=== PATIENT | female | born 1970 | race Caucasian/White ===

== ENCOUNTER → 2017-02-17 | Outpatient (CLI) | payer OTHER ==
--- NOTE | 2017-02-17 09:22 | US ---
EXAMINATION TYPE: US abdomen complete DATE OF EXAM: 02/17/2017 COMPARISON: CT from 2016 CLINICAL HISTORY: R11.2 Nausea and vomiting unspec. EXAM MEASUREMENTS: Liver Length: 9.9 cm Gallbladder Wall: 0.2 cm CBD: 0.3 cm Spleen: 9.0 cm Right Kidney: 9.9 x 3.7 x 4.9 cm Left Kidney: 9.9 x 5.0 x 4.7 cm Pancreas: visualized portions wnl Liver: wnl Gallbladder: No stones seen Evidence for sonographic Martin's sign: Yes CBD: wnl Spleen: wnl Right Kidney: No hydronephrosis or masses seen Left Kidney: No hydronephrosis or masses seen Upper IVC: wnl Abd Aorta: wnl IMPRESSION: 1. Normal abdomen ultrasound 2. There is sonographic Matrin's sign at the time of this examination. This could be correlated with cholecystitis. Ultrasound abnormality ovaries not identified.
== END | disposition home or self-care (01) ==
LOC: RADUSWWP 06:54
PROVIDERS: ATTEND Family Medicine
DX: R11.2 Nausea with vomiting, unspecified (principal)
CPT/HCPCS: 76700

== ENCOUNTER → 2017-02-21 | Outpatient (CLI) | payer OTHER ==
--- NOTE | 2017-02-21 09:04 | NM ---
EXAMINATION TYPE: NM hepatobiliary w EF DATE OF EXAM: 02/21/2017 COMPARISON: Ultrasound abdomen 02/17/2017 HISTORY: Right upper quadrant pain, R10.11 TECHNIQUE: After the intravenous administration of 5.26 mCi Tc 99m Mebrofenin hepatobiliary scintigra phy is performed. Immediate images post injection. FINDINGS: There is satisfactory initial accumulation of tracer by the liver. The gallbladder is visualized wit hin 10 minutes. The small bowel activity is noted on delayed images. At one hour 8 ounces of oral e nsure plus is given to mimic CCK and gallbladder ejection fraction is calculated at 79 %, in the norm al range. Therefore there is no scintigraphic evidence of cystic or common bile duct obstruction to suggest acute cholecystitis or gallbladder dyskinesia. IMPRESSION: Exam is within normal limits.
== END | disposition home or self-care (01) ==
LOC: RADNMMAIN 06:42
PROVIDERS: ATTEND Family Medicine
DX: R10.11 Right upper quadrant pain (principal); Z88.0 Allergy status to penicillin; Z91.013 Allergy to seafood; Z88.8 Allergy status to other drugs, medicaments and biological substances
CPT/HCPCS: 78226; A9537

== ENCOUNTER 2017-11-15 09:24 | Day surgery (SDC) | payer OTHER ==
--- NOTE | 2017-11-15 10:23 | P.GSHP ---
History of Present Illness H&P Date: 11/15/17 CHIEF COMPLAINT: GERD and change in bowel habits HISTORY OF PRESENT ILLNESS: The patient is a 47-year-old female who presents with gastroesophageal reflux disease and change in bowel habits. Upper and lower endoscopy were offered for further evaluation and management. PAST MEDICAL HISTORY: Please see list. PAST SURGICAL HISTORY: Please see list. MEDICATIONS: Please see list. ALLERGIES: Please see list. SOCIAL HISTORY: No illicit drug use FAMILY HISTORY: No reports of Crohn disease or ulcerative colitis. REVIEW OF ORGAN SYSTEMS: CONSTITUTIONAL: No reports of fevers or chills. GI: Denies any blood in stools or constipation. PHYSICAL EXAM: VITAL SIGNS: Stable GENERAL: Well-developed pleasant in no acute distress. HEENT: No scleral icterus. Extraocular movements grossly intact. Moist buccal mucosa. NECK: Supple without lymphadenopathy. CHEST: Unlabored respirations. Equal bilateral excursions. CARDIOVASCULAR: Regular rate and rhythm. Distal 2+ pulses. ABDOMEN: Soft, nondistended. MUSCULOSKELETAL: No clubbing, cyanosis, or edema. ASSESSMENT: 1. Gastroesophageal reflux disease 2. Change in bowel habits PLAN: 1. Recommend proceeding with an upper and lower endoscopy Past Medical History Past Medical History: Cancer, Hyperlipidemia, Hypertension, Myocardial Infarction ([place]), Seizure Disorder, Supraventricular Tachycardia (SVT) Additional Past Medical History / Comment(s): FEW MILD SEIZURES, NONE SINCE 2004. SPONTANEOUS PNEUMOTHORAX. HEART RACING OCC; RECENT VISIT W/ CV . UTERINE FIBROIDS, CERVICAL CANCER. ONGOING MENSES SINCE 10/2014. Last Myocardial Infarction Date:: DECEMBER 2011 History of Any Multi-Drug Resistant Organisms: None Reported Past Surgical History: Ablation, Appendectomy, Heart Catheterization, Hysterectomy, Tubal Ligation Additional Past Surgical History / Comment(s): CARDIAC CATH 12/2011-NO BLOCKAGES , ONLY VERY SMALL VESSEL FEEDING LT SIDE OF HEART. LT LUNG SURG W/ PLEURODESIS , D/T PNEUMOTHORAX. C -SECTION. LEEP, COLPOSCOPY 10/2014. Past Anesthesia/Blood Transfusion Reactions: Postoperative Nausea & Vomiting ( PONV) Additional Past Anesthesia/Blood Transfusion Reaction / Comment(s): NEVER HAD BLOOD Past Psychological History: Anxiety Additional Psychological History / Comment(s): PT LIVES WITH HER MOTHER IN A HOME. PT IS INDEPENDENT. SHE HAS NOT WORKED SINCE NH. SHE DRIVES A CAR. Smoking Status: Former smoker Past Alcohol Use History: Occasional Additional Past Alcohol Use History / Comment(s): STARTED SMOKING TEENAGER, QUIT ON/OFF Past Drug Use History: None Reported, Marijuana Additional Drug Use History / Comment(s): PT SMOKED MARIJUANA IN PAST. - Past Family History Father Family Medical History: Diabetes Mellitus Additional Family Medical History / Comment(s): FATHER IN [place] Mother Family Medical History: Hyperlipidemia, Hypertension, Osteoarthritis (OA), Rheumatoid Arthritis (RA) Additional Family Medical History / Comment(s): MOTHER IS LIVING AND IS 64YRS OLD. Medications and Allergies Home Medications Medication Instructions Recorded Confirmed Type Propranolol HCl [Propranolol HCl 240 mg PO DAILY 03/30/15 06/20/16 History ER] Losartan Potassium 100 mg PO DAILY 06/20/16 06/20/16 History Polyethylene Glycol 3350 [Miralax] 17 gm PO DAILY #20 packet 06/20/16 Rx Allergies Allergy/AdvReac Type Severity Reaction Status Date / Time erythromycin base Allergy Rapid Verified 06/20/16 07:09 Heart Rate heparin Allergy Unknown Verified 06/20/16 07:09 latex Allergy Rash/Hives Verified 06/20/16 07:09 Penicillins Allergy Rash/Hives Verified 06/20/16 07:09 propoxyphene napsylate Allergy Unknown Verified 06/20/16 07:09 [From Darvocet-[facility]] shellfish derived Allergy Swelling Verified 06/20/16 07:09 hydrocodone bitartrate AdvReac Itching Verified 06/20/16 07:09 [From [place]]
[2017-11-15 10:35] VITALS: TEMP 98
[2017-11-15] MEDS ORDERED: LACTATED RINGERS 1,000 ML IV ONE (10:36)
[2017-11-15] MEDS ORDERED: LIDOCAINE 1% 20 ML VIAL (10MG/ML) FOR IV START INTRADERMA ONE (10:37)
[2017-11-15] MEDS ORDERED: PROPOFOL 10 MG/ML 20 ML VIAL IV ONE (10:49)
[2017-11-15] MEDS ORDERED: LIDOCAINE 1% INJ 10MG/ML (20 ML MDV) ONE (10:49)
--- NOTE | 2017-11-15 11:03 | P.PCN ---
Date of Procedure: 11/15/17 Description of Procedure: PREOPERATIVE DIAGNOSIS: Gastroesophageal reflux disease Epigastric abdominal pain POSTOPERATIVE DIAGNOSIS: Gastroesophageal reflux disease Epigastric abdominal pain Diaphragmatic hiatal hernia Chronic gastritis. OPERATION: Esophagogastroduodenoscopy with biopsies along antrum. SURGEON: Georgiana Waddell MD ANESTHESIA: MAC. INDICATIONS: The patient is a 47-year-old female who presents with a history of gastric esophageal reflux disease. She also reported epigastric abdominal pain. Benefits and risks of the procedure were described. Informed consent was obtained. DESCRIPTION: The patient was brought into the endoscopy suite and laid in the left lateral decubitus position. An Olympus gastroscope was passed along the posterior oropharynx down to the distal esophagus where the squamocolumnar junction was encountered at 34 cm from the incisors. The stomach was entered and no bile reflux was found. Additional findings are listed below. Biopsies with cold forceps were obtained of the antrum. The first through third portion of the duodenum was examined and unremarkable. Retroflexion of the scope confirmed Hill grade II lower esophageal valve. The squamocolumnar junction demonstrated LA grade A erosive esophagitis. The stomach was desufflated. The patient tolerated the procedure well. FINDINGS: Squamocolumnar junction 34 cm from the incisors. Diaphragmatic hiatus 36 cm from the incisors Hiatal hernia, 2 cm Hill grade II lower esophageal valve. LA grade A erosive esophagitis. No active duodenitis. Acute gastritis with recent bleed. RECOMMENDATIONS: Further recommendations pending results of pathology report. Upper endoscopy as needed.
--- NOTE | 2017-11-15 11:18 | P.PCN ---
Date of Procedure: 11/15/17 Description of Procedure: PREOPERATIVE DIAGNOSIS: Altered bowel function POSTOPERATIVE DIAGNOSIS: Altered bowel function Scattered diverticulosis Internal hemorrhoids without complication OPERATION: Colonoscopy to the ileocecal valve and appendiceal orifice Colonoscopy with random biopsies SURGEON: Georgiana Waddell MD. ANESTHESIA: MAC. INDICATIONS: The patient is a 47-year-old female who presents for change in bowel habits. Benefits and risks were described and informed consent was obtained. DESCRIPTION OF PROCEDURE: The patient had undergone Gatorade, MiraLAX and Dulcolax prep. She had been brought into the operating room and laid in the left lateral decubitus position. After adequate intravenous sedation, the rectum was examined with 2% lidocaine jelly. No external hemorrhoids were encountered. The rectal tone was within normal limits. No lesions were palpated in the rectal vault. An Olympus colonoscope was advanced until the ileocecal valve and appendiceal orifice were clearly viewed. The prep was good with visualization of the mucosal folds. The scope was removed with visualization of each mucosal fold. scattered diverticulosis was encountered. No colonic polyps were found. No evidence of focal colitis was found. Random biopsies were obtained throughout the colon for history of change in bowel habits. Retroflexion of the scope demonstrated grade 1 internal hemorrhoids without active bleeding or inflammation. The colon was desufflated. The patient had tolerated the procedure well. Withdrawal time was over 6 minutes. FINDINGS: Internal hemorrhoids, grade 1 No external prolapsed hemorrhoids. Scattered diverticulosis. No adenomatous polyps. No focal colitis. RECOMMENDATIONS: Lower endoscopy every as needed. Plan - Discharge Summary New Discharge Prescriptions: No Action Propranolol HCl [Propranolol HCl ER] 240 mg PO DAILY Losartan Potassium 100 mg PO DAILY Polyethylene Glycol 3350 [Miralax] 17 gm PO DAILY #20 packet Discharge Medication List Propranolol HCl [Propranolol HCl ER] 240 mg PO DAILY 03/30/15 [History] Losartan Potassium 100 mg PO DAILY 06/20/16 [History] Polyethylene Glycol 3350 [Miralax] 17 gm PO DAILY #20 packet 06/20/16 [Rx]
[2017-11-15 11:26] VITALS: RESP 16
[2017-11-15] MEDS ORDERED: LACTATED RINGERS 1,000 ML IV SCH (11:35)
[2017-11-15] MEDS ORDERED: LIDOCAINE 1% 20 ML VIAL (10MG/ML) FOR IV START INTRADERMA PRN (11:35)
[2017-11-15 11:57] VITALS: BP 179/99; PULSE 61
== END 2017-11-15 12:36 | disposition home or self-care (01) ==
LOC: ORWHC2ENDO 09:24
PROVIDERS: ATTEND Surgery Plastic and Reconstructive Surgery
DX: K29.40 Chronic atrophic gastritis without bleeding (principal); K44.9 Diaphragmatic hernia without obstruction or gangrene; K57.90 Diverticulosis of intestine, part unspecified, without perforation or abscess without bleeding; K64.0 First degree hemorrhoids; K31.89 Other diseases of stomach and duodenum; I10 Essential (primary) hypertension; Z85.41 Personal history of malignant neoplasm of cervix uteri; I25.2 Old myocardial infarction; Z79.899 Other long term (current) drug therapy; I47.1 Supraventricular tachycardia; Z87.891 Personal history of nicotine dependence; Z88.8 Allergy status to other drugs, medicaments and biological substances; Z88.1 Allergy status to other antibiotic agents; Z91.040 Latex allergy status; Z88.5 Allergy status to narcotic agent; Z88.0 Allergy status to penicillin; Z91.013 Allergy to seafood
CPT/HCPCS: 88305; 45380; 43239; J2001; J2704

== ENCOUNTER → 2017-12-22 | Day surgery (SDC) | payer OTHER ==
[2017-12-21 14:19] VITALS: BMI 23.3
[~2017-12-22] MED LIST: ACETAMINOPHEN IV (For NPO) 1,000 MG in EMPTY BAG 1 BAG IVPB ONE; BUPIVACAINE (PF) 0.5% 30 ML VIAL SQ ONE; DEXAMETHASONE SOD PHOSPHATE 10 MG/ML 1 ML VIAL IV ONE; GLYCOPYRROLATE 0.2 MG/ML 2 ML VIAL ONE; HYDROmorphone (PF) 1 MG/ML ONE; INDOCYANINE GREEN 25 MG VIAL IV ONE; INDOCYANINE GREEN 25 MG VIAL IV STA; KETOROLAC 30 MG/ML 1 ML VIAL ONE; LACTATED RINGERS 1,000 ML IV ONE; LACTATED RINGERS 1,000 ML IV SCH; LIDOCAINE 1% 20 ML VIAL (10MG/ML) FOR IV START INTRADERMA ONE; LIDOCAINE 1% INJ 10MG/ML (20 ML MDV) ONE; MIDAZOLAM 2 MG/2 ML VIAL ONE; MORPHINE SULFATE 2 MG/ML SYRINGE IV PRN; NEOSTIGMINE 1 MG/ML 10 ML VIAL ONE; ONDANSETRON 4 MG/2 ML VIAL IVP ONE; ONDANSETRON 4 MG/2 ML VIAL IVP PRN; PROPOFOL 10 MG/ML 20 ML VIAL IV ONE; Pre Op ABX Message 1 EACH MISC MISCELLANE ONE; ROCURONIUM BROMIDE 10 MG/ML 10 ML VIAL IV ONE; ceFAZolin IN SWFI 2 GM/20 ML SYRINGE IVP ONE; fentaNYL (PF) 50 MCG/ML 2 ML AMP ONE; traMADol 50 MG TAB PO ONE
--- NOTE | 2017-12-22 07:18 | P.GSHP ---
History of Present Illness H&P Date: 12/22/17 CHIEF COMPLAINT: Cholecystitis HISTORY OF PRESENT ILLNESS: The patient is a 47-year-old female who presents with history of epigastric including right upper quadrant abdominal pain. She underwent diagnostic studies for her gallbladder. Separately her clinical picture was consistent with cholecystitis. Now she presents for surgical intervention. PAST MEDICAL HISTORY: Please see list PAST SURGICAL HISTORY: Please see list MEDICATIONS: Please see list ALLERGIES: Denies. SOCIAL HISTORY: No illicit drug use FAMILY HISTORY: Pertinent for gallbladder disease REVIEW OF ORGAN SYSTEMS: Additionally reports: Gastrointestinal: Has fatty food intolerance including greasy food and spicy food intolerance. She reports extremes with diarrhea and constipation. CONSTITUTIONAL: No fevers or chills. HEENT: Denies any trouble with vision, hearing or nosebleeds. No difficulty swallowing. LYMPHATIC: The patient denies any lumps and bumps around the neck. ENDOCRINE: Denies any thyroid disorders. Denies any blood sugar glucose intolerance. RESPIRATORY: Denies pneumonia. Denies any troubles with breathing or dyspnea on exertion. CARDIOVASCULAR: Denies any chest pain, palpitations, or recent heart attacks. Past history of heart attack. GENITOURINARY: Denies any blood in urine or increased urinary frequency. Past cervical cancer MUSCULOSKELETAL: Denies any back pain, stiffness or joint arthritis. NEUROLOGIC: Denies any numbness or tingling along the distal extremities. No seizure disorders or headaches. PSYCHIATRIC: Denies any depression or suicidal ideation. HEMATOLOGIC: Denies any abnormal bleeding or bruising. BREASTS: Denies any breast lumps, pain or nipple discharge. SKIN: No current skin cancer. No rash. PHYSICAL EXAM: VITAL SIGNS: Afebrile vital signs stable Patient is a 47-year-old female. Abdomen: Tender along the right upper quadrant. GENERAL: Well developed and in no acute distress. Pleasant. HEENT: No sclera icterus. Extraocular movements grossly intact. Moist buccal mucosa. Head is atraumatic, normocephalic. Hears conversational speech. No nasal drainage. NECK: Supple without lymphadenopathy. No JV distention. CHEST: Non-labored respirations and equal bilateral excursions. CARDIOVASCULAR: Regular rate and rhythm. Palpable 2+ radial pulses. MUSCULOSKELETAL: No clubbing, cyanosis or edema. NEUROLOGIC: No focal or lateralizing signs. PSYCH: Appropriate affect. Alert and oriented to person, place and time. SKIN: Well perfused. Good skin turgor. STUDIES: HIDA scan reviewed demonstrating ejection fraction of over 70% Ultrasound was reviewed also demonstrating large gallstones. She did have findings of tender right upper quadrant pain. CT of the abdomen and pelvis and imaging was reviewed in detail alongside with the patient demonstrating a lesion along the left kidney. Additionally, the liver was moderately enlarged. Findings are suspicious for fatty liver disease as well. Upper and lower endoscopy findings reviewed. ASSESSMENT: 1. Epigastric and right upper quadrant abdominal pain 2. Chronic cholecystitis 3. Symptomatic gallstones. PLAN: 1. Will need a robotic cholecystectomy possible open. Benefits and risks were described. 2. Heparin for DVT prophylaxis 5000 units. 3. Antibiotic prophylaxis. Past Medical History Past Medical History: Asthma, Cancer, Hyperlipidemia, Hypertension, Myocardial Infarction ([place]), Seizure Disorder, Supraventricular Tachycardia (SVT) Additional Past Medical History / Comment(s): hernia, FEW MILD SEIZURES, NONE SINCE 2004. SPONTANEOUS PNEUMOTHORAX. HEART RACING OCC; hx UTERINE FIBROIDS, hx CERVICAL CANCER. Last Myocardial Infarction Date:: DECEMBER 2011 History of Any Multi-Drug Resistant Organisms: None Reported Past Surgical History: Appendectomy, Cardiac Ablation, Section, Heart Catheterization, Hysterectomy, Tubal Ligation Additional Past Surgical History / Comment(s): LT LUNG SURG W/ PLEURODESIS, D/T PNEUMOTHORAX. . LEEP, COLPOSCOPY Past Anesthesia/Blood Transfusion Reactions: Postoperative Nausea & Vomiting ( PONV) Additional Past Anesthesia/Blood Transfusion Reaction / Comment(s): NEVER HAD BLOOD Smoking Status: Current every day smoker - Past Family History Father Family Medical History: Diabetes Mellitus Additional Family Medical History / Comment(s): FATHER IN [place] Mother Family Medical History: Hyperlipidemia, Hypertension, Osteoarthritis (OA), Rheumatoid Arthritis (RA) Additional Family Medical History / Comment(s): MOTHER IS LIVING AND IS 64YRS OLD. Medications and Allergies Home Medications Medication Instructions Recorded Confirmed Type Propranolol HCl [Propranolol HCl 240 mg PO DAILY 03/30/15 12/21/17 History ER] Losartan Potassium 100 mg PO DAILY 06/20/16 12/21/17 History Albuterol Inhaler [Ventolin Hfa 1 - 2 puff INHALATION RT-Q6H PRN 12/21/17 History Inhaler] clonazePAM [KlonoPIN] 0.5 mg PO DAILY PRN 12/21/17 12/21/17 History Allergies Allergy/AdvReac Type Severity Reaction Status Date / Time erythromycin base Allergy Rapid Verified 12/21/17 14:12 Heart Rate heparin Allergy Unknown Verified 12/21/17 14:12 latex Allergy Rash/Hives Verified 12/21/17 14:12 Penicillins Allergy Rash/Hives Verified 12/21/17 14:12 propoxyphene napsylate Allergy Unknown Verified 12/21/17 14:12 [[facility]] shellfish derived Allergy Swelling Verified 12/21/17 14:12 hydrocodone bitartrate AdvReac Itching Verified 12/21/17 14:12 [From [place]]
[2017-12-22] MEDS: HYDROmorphone 0.5 MG/0.5 ML SYRINGE IVP PRN ×4 (14:34→15:03)
[2017-12-22 14:42] VITALS: TEMP 97
--- NOTE | 2017-12-22 14:59 | P.OP ---
Date of Procedure: 12/22/17 Description of Procedure: SURGEON: GEORGIANA WADDELL MD [employer]: PREOPERATIVE DIAGNOSES: 1. Symptomatic gallstones 2. Chronic cholecystitis 3. History of supraventricular tachycardia 4. Seizure disorder 5. Personal history of cervical cancer 6. Depression 7. Tobacco abuse POSTOPERATIVE DIAGNOSES: 1. Symptomatic gallstones 2. Chronic cholecystitis 3. History of supraventricular tachycardia 4. Seizure disorder 5. Personal history of cervical cancer 6. Depression 7. Tobacco abuse OPERATION: Robotic-assisted da Poonam Xi laparoscopic cholecystectomy, multiport with FIREFLY ESTIMATED BLOOD LOSS: 5 mL. SPECIMENS REMOVED: Gallbladder. COMPLICATIONS: None. OPERATIVE FINDINGS: 1. Chronic cholecystitis INDICATIONS: The patient is a 47-year-old female who presents with cholelcystitis. Surgical intervention with a laparoscopic cholecystectomy was described at length including injury to the biliary tree, bleeding, infection, need for further surgery. Informed consent was obtained. Robotic assisted laparoscopic approach was described. Benefits and risks of the procedure including but not limited to bleeding, infection, injury to the biliary tree was described. Informed consent was obtained. DESCRIPTION OF PROCEDURE: Patient was brought to the operating room, placed in supine position. After general induction, the abdomen had been prepped and draped in standard sterile fashion. The robotic da Poonam XI system was primed. After a timeout protocol was performed, the patient had been prepped and draped in standard sterile fashion. The patient was injected with indocyanine green. A 5 mm 0 degrees laparoscopic trocar entry was performed along the left upper quadrant. The abdomen insufflated to 15 mmHg pressure which she tolerated well. Diagnostic laparoscopy demonstrated no injury to bowel viscera or mesentery. The liver surface was unremarkable. Next, two 8 mm robotic ports were placed along the right upper abdomen. The camera 8-mm port was maintained along the epigastrium. Another 8 mm port was placed along the left upper abdominal wall after exchanging the 5 mm port. Please note that the ports were placed at least 10 to 15 cm away from the target anatomy of the gallbladder. The robot was docked along the left lateral abdomen. The patient was repositioned in reverse Trendelenburg position. Using a grasper for arm 3, a grasper for arm 4, including hook cautery for arm 1 , the robotic system was docked and primed as described. Instruments were interchanged by the programs assistant including hook cautery, Bovie cautery and clip appliers. I had sat at the console. Adhesions were identified along the infundibulum of the gallbladder and addressed using hook cautery. The gallbladder fundus was retracted over the dome of the liver. Initial attention was brought to the infundibulum which was gently retracted in the inferior lateral approach. Using a grasper, the cystic duct including the cystic artery was carefully skeletonized. FIREFLY was used to identify the cystic artery and cystic structures. Large PLASTIC clips were used throughout the entire case. Using a clip oven dumper 2 clips were placed proximally, and 1 clip was placed distally along the cystic duct and then cauterized with the cautery. Again care was taken to avoid any injury to the biliary tree as the common bile duct was clearly visualized during this portion of dissection. Next, the cystic artery was similarly clipped and cauterized. Electro-Bovie cautery was used to remove the gallbladder from the hepatic fossa. Hemostasis was checked and found to be adequate. The robot was undocked. I re-scrubbed into the case. Using a 10 mm Endo Catch bag via the left upper quadrant incision, the specimen was removed from the abdominal cavity. All pneumoperitoneum instruments were evacuated from the abdominal cavity. The incisions were reapproximated using 4-0 Monocryl in an interrupted subcuticular fashion. Fascial defects were less than 8 mm in size. Please note along the trocar sites, local anesthetic was placed as a field block prior to insertion of all instruments. Liquid glue was applied to the skin. At the end of the procedure needle, sponge, and instrument count had been verified correct by the neurosurgical nurse practitioner. The patient was transferred to postanesthesia care unit in stable condition. Intraoperative films were shared with the patient's family who were very pleased with the level of care. Console time 13 minutes Plan - Discharge Summary New Discharge Prescriptions: New Ibuprofen [Motrin] 600 mg PO Q8HR PRN #30 tab PRN Reason: Pain traMADol HCL [Ultram] 50 mg PO Q4HR PRN 3 Days #18 tab PRN Reason: Pain No Action Propranolol HCl [Propranolol HCl ER] 240 mg PO DAILY Losartan Potassium 100 mg PO DAILY Albuterol Inhaler [Ventolin Hfa Inhaler] 1 - 2 puff INHALATION RT-Q6H PRN PRN Reason: Shortness Of Breath clonazePAM [KlonoPIN] 0.5 mg PO DAILY PRN PRN Reason: Anxiety Discharge Medication List Propranolol HCl [Propranolol HCl ER] 240 mg PO DAILY 03/30/15 [History] Losartan Potassium 100 mg PO DAILY 06/20/16 [History] Albuterol Inhaler [Ventolin Hfa Inhaler] 1 - 2 puff INHALATION RT-Q6H PRN [History] clonazePAM [KlonoPIN] 0.5 mg PO DAILY PRN 12/21/17 [History] Ibuprofen [Motrin] 600 mg PO Q8HR PRN #30 tab 12/22/17 [Rx] traMADol HCL [Ultram] 50 mg PO Q4HR PRN 3 Days #18 tab 12/22/17 [Rx] Follow up Appointment(s)/Referral(s): Georgiana Waddell MD [STAFF PHYSICIAN] - 12/26/17 Patient Instructions/Handouts: Low Fat Diet (DC), Laparoscopic Cholecystectomy (DC) Activity/Diet/Wound Care/Special Instructions: No lifting over 4 pounds in 2 weeks. May shower. No bath tub soaks. Avoid fatty greasy foods for the next 5 days. Discharge Disposition: HOME SELF-CARE
[2017-12-22 15:15] LABS: Basophils % (A) 0 %; Eosinophils % (A) 0 %; HCT 40.4 % (34.0-46.0); HGB 13.7 gm/dL (11.4-16.0); Lymphocytes # (A) 0.8 k/uL (1.0-4.8); Lymphocytes % (A) 8 %; MCH 33.5 pg (25.0-35.0); MCHC 33.8 g/dL (31.0-37.0); MCV 99.1 fL (80.0-100.0); Mean Platelet Volume 7.9; Monocytes # (A) 0.3 k/uL (0-1.0); Monocytes % (A) 3 %; Neutrophils # (A) 8.6 k/uL (1.3-7.7); Neutrophils % (A) 88 %; Platelet Count 213 k/uL (150-450); RBC 4.08 m/uL (3.80-5.40); RDW 12.2 % (11.5-15.5); WBC 9.8 k/uL (3.8-10.6)
[2017-12-22 15:17] VITALS: RESP 16
[2017-12-22 15:20] LABS: ALT 127 U/L (9-52); AST 94 U/L (14-36); Alkaline Phosphatase 75 U/L (38-126); Anion Gap 8 mmol/L; Blood Urea Nitrogen 12 mg/dL (7-17); Calcium 9.2 mg/dL (8.4-10.2); Carbon Dioxide 27 mmol/L (22-30); Chloride 104 mmol/L (98-107); Glucose 120 mg/dL (74-99); Potassium 4.5 mmol/L (3.5-5.1); Sodium 139 mmol/L (137-145); Total Bilirubin 0.4 mg/dL (0.2-1.3); Total Protein 6.1 g/dL (6.3-8.2)
[2017-12-22 16:02] VITALS: BP 137/87; PULSE 73
== END | disposition home or self-care (01) ==
LOC: OR 11:24
PROVIDERS: ATTEND Surgery Plastic and Reconstructive Surgery
DX: K80.10 Calculus of gallbladder with chronic cholecystitis without obstruction (principal); K66.0 Peritoneal adhesions (postprocedural) (postinfection); J45.909 Unspecified asthma, uncomplicated; E78.5 Hyperlipidemia, unspecified; I10 Essential (primary) hypertension; F32.9 Major depressive disorder, single episode, unspecified; I25.2 Old myocardial infarction; G40.909 Epilepsy, unspecified, not intractable, without status epilepticus; F17.210 Nicotine dependence, cigarettes, uncomplicated; Z88.1 Allergy status to other antibiotic agents; Z91.040 Latex allergy status; Z88.0 Allergy status to penicillin; Z91.013 Allergy to seafood; Z88.5 Allergy status to narcotic agent; Z88.8 Allergy status to other drugs, medicaments and biological substances; Z79.899 Other long term (current) drug therapy; Z85.41 Personal history of malignant neoplasm of cervix uteri; Z86.79 Personal history of other diseases of the circulatory system; Z90.49 Acquired absence of other specified parts of digestive tract; Z83.3 Family history of diabetes mellitus; Z82.49 Family history of ischemic heart disease and other diseases of the circulatory system; Z83.79 Family history of other diseases of the digestive system
CPT/HCPCS: 47562; 88304; 80053; 85025; J2250; J1100; J2710; J2405; J2001; J3010; J1885; J1170 ×2; J0131; J2704; J0690

== ENCOUNTER → 2018-05-28 | Outpatient (CLI) | payer OTHER ==
--- NOTE | 2018-05-28 10:26 | XR ---
EXAMINATION TYPE: XR wrist complete RT DATE OF EXAM: 05/28/2018 COMPARISON: NONE HISTORY: Palpable lump radial side of the right wrist TECHNIQUE: Four views submitted. FINDINGS: The osseous structures are intact. The joint spaces are preserved and there is no acute fracture or dislocation. There is a soft tissue prominence which likely relates to the palpable nodule. Vague ca lcification along the margin of the distal radius. IMPRESSION: 1. Soft tissue prominence and vague calcification along the margin of the radius. Recommend a MRI.
== END | disposition home or self-care (01) ==
LOC: RADXRMAIN 10:01
PROVIDERS: ATTEND Midwife
DX: M25.831 Other specified joint disorders, right wrist (principal)

== ENCOUNTER → 2018-06-19 | Outpatient (CLI) | payer OTHER ==
--- NOTE | 2018-06-21 23:18 | MR ---
EXAMINATION TYPE: MR wrist RT wo con DATE OF EXAM: 06/19/2018 COMPARISON: Correlation radiograph 05/28/2018 HISTORY: 48-year-old female Right wrist pain, cyst TECHNIQUE: Multiplanar, multisequence images of the right wrist were obtained without IV contrast. FINDINGS: There is a palpable marker along the radial aspect of the wrist. Just underlying this these the first dorsal extensor compartment containing the APL and EPB. Just overlying these tendons at the patient' s area of interest is a 7.5 x 5.0 mm ganglion cyst along the tendon sheath. No abnormal tendon signal or significant tenosynovial fluid is seen. Mild tenosynovial fluid along the distal extensor carpi ulnaris beyond the ulnar styloid process. Oth erwise, the remaining extensor and flexor tendons appear satisfactory. Evaluation of the osseous structures shows moderate degenerative change at the first CMC joint with m arginal spurring and some mild subchondral cystic change. No suspicious bone marrow replacement, bone marrow edema, or evidence for fracture. There is an effusion along the dorsal aspect of the midcarpal compartment and a trace effusion in the distal radioulnar joint. The scapholunate ligament and lunotriquetral ligaments appear intact. Normal course, caliber, and signal intensity of the median nerve. The triangle fibrocartilage appears intact. No osseous erosions are synovial proliferation. IMPRESSION: 1. A 7.5 x 5.0 cm ganglion cyst along the tendon sheath of the first dorsal, extensor compartment. Th is is along the radial aspect of the wrist and corresponds to the area of interest. 2. Moderate degenerative change at the basal joint of the thumb.
== END ==
LOC: RADMRIMAIN 14:38
PROVIDERS: ATTEND Midwife
DX: M67.431 Ganglion, right wrist (principal)

== ENCOUNTER 2019-05-22 12:14 | Inpatient (IN) | payer OTHER ==
[2019-05-22] MEDS ORDERED: NITROGLYCERIN SL TABS 0.4 MG TAB SUBLINGUAL STA ×3 (12:32)
--- NOTE | 2019-05-22 12:38 | ED ---
General Adult HPI - General Chief complaint: Chest Pain Stated complaint: Cardiac issues Time Seen by Provider: 05/22/19 12:15 Source: patient, RN notes reviewed Mode of arrival: ambulatory Limitations: no limitations - History of Present Illness Initial comments: This is a 49-year-old female presents emergency Department with a past medical history significant for smoking high blood pressure and a previous MD. Patient states she comes in today because on Monday she started having severe back pain that radiated down both of her arms she states it was so severe she started to break out in a sweat. Patient states it lasted for 15-20 minutes and then it subsided and it came back a little time later lasted again for 20 minutes and eventually subsided. Patient states since that she's had chest pain in mostly left arm discomfort. She describes it as a pressure chest and in her arm. Patient states she's also been short of breath and extremely tired. Patient states over the last few months she has lost at least 20 pounds unintentionally. Patient states she quit smoking 2 or 3 months ago. Patient denies any recent fever chills or cough. Patient denies any abdominal pain. Patient denies any numbness or weakness per patient denies headache. - Related Data Home Medications Medication Instructions Recorded Confirmed Albuterol Inhaler [Ventolin Hfa 1 - 2 puff INHALATION RT-Q6H PRN 12/21/17 05/22/19 Inhaler] Propranolol HCl 60 mg PO DAILY 06/13/18 05/22/19 Umeclidinium [place] [Incruse 1 puff INHALATION RT-DAILY 05/22/19 05/22/19 Ellipta] Previous Rx's Medication Instructions Recorded traMADol HCL [Ultram] 50 mg PO Q4HR PRN 3 Days #18 tab 12/22/17 Omeprazole 40 mg PO DAILY 30 Days #30 06/14/18 capsule. Allergies Allergy/AdvReac Type Severity Reaction Status Date / Time erythromycin base Allergy Rapid Verified 05/22/19 13:26 Heart Rate heparin Allergy Unknown Verified 05/22/19 13:26 latex Allergy Rash/Hives Verified 05/22/19 13:26 Penicillins Allergy Rash/Hives Verified 05/22/19 13:26 propoxyphene napsylate Allergy Unknown Verified 05/22/19 13:26 [From [facility]] shellfish derived Allergy Swelling Verified 05/22/19 13:26 hydrocodone bitartrate AdvReac Itching Verified 05/22/19 13:26 [From [facility]] Review of Systems ROS Statement: Those systems with pertinent positive or pertinent negative responses have been documented in the HPI. ROS Other: All systems not noted in ROS Statement are negative. Past Medical History Past Medical History: Coronary Artery Disease (CAD), Cancer, Chest Pain / Angina, GERD/Reflux, Hyperlipidemia, Hypertension, Myocardial Infarction (MD), Seizure Disorder, Supraventricular Tachycardia (SVT) Additional Past Medical History / Comment(s): Past sinus tach, L spontaneous pneumothorax with surgery, pt denies asthma-states she has environmental allergies, bronchitis, cervical cancer with surgery, uterine fibroids with surgery, ovarian cysts, umbilical and esophageal hernia per pt, Raynaulds sy ndrome, POTs, no seizure since 2008, gastritis, diverticular disease. Last Myocardial Infarction Date:: DECEMBER 2012 History of Any Multi-Drug Resistant Organisms: None Reported Past Surgical History: Appendectomy, Cardiac Ablation, Section, Cholecystectomy, Heart Catheterization, Hysterectomy, Tubal Ligation Additional Past Surgical History / Comment(s): LT LUNG SURG W/ PLEURODESIS, D/T PNEUMOTHORAX, LEEP, COLPOSCOPY, EGD/COLONOSCOPY. Past Anesthesia/Blood Transfusion Reactions: Postoperative Nausea & Vomiting (PONV) Additional Past Anesthesia/Blood Transfusion Reaction / Comment(s): NEVER HAD BLOOD Past Psychological History: Depression Smoking Status: Current every day smoker Past Alcohol Use History: None Reported Past Drug Use History: None Reported - Past Family History Father Family Medical History: Diabetes Mellitus Additional Family Medical History / Comment(s): FATHER IN [place] Mother Family Medical History: Hyperlipidemia, Hypertension, Osteoarthritis (OA), Rheumatoid Arthritis (RA) Additional Family Medical History / Comment(s): MOTHER IS LIVING AND IS 64YRS OLD. General Exam - General Exam Comments Initial Comments: GENERAL: Patient is well-developed and well-nourished. Patient is nontoxic and well-h ydrated and is in mild distress. ENT: Neck is soft and supple. No significant lymphadenopathy is noted. Oropharynx is clear. Moist mucous membranes. Neck has full range of motion without eliciting any pain. EYES: The sclera were anicteric and conjunctiva were pink and moist. Extraocular mov ements were intact and pupils were equal round and reactive to light. Eyelids were unremarkable. PULMONARY: Unlabored respirations. Good breath sounds bilaterally. No audible rales rhonchi or wheezing was noted. CARDIOVASCULAR: There is a regular rate and rhythm without any murmurs gallops or rubs. ABDOMEN: Soft and nontender with normal bowel sounds. No palpable organomegaly was noted. There is no palpable pulsatile mass. SKIN: Skin is clear with no lesions or rashes and otherwise unremarkable. NEUROLOGIC: Patient is alert and oriented x3. Cranial nerves II through XII are grossly intact. Motor and sensory are also intact. Normal speech, volume and content. Symmetrical smile. MUSCULOSKELETAL: Normal extremities with adequate strength and full range of motion. No lower extremity swelling or edema. No calf tenderness. LYMPHATICS: No significant lymphadenopathy is noted PSYCHIATRIC: Normal psychiatric evaluation. Limitations: no limitations Course Vital Signs 05/22/19 05/22/19 05/22/19 12:16 12:30 13:00 Temperature 98.4 F Pulse Rate 79 78 65 Respiratory 18 16 16 Rate Blood Pressure 201/111 170/107 O2 Sat by Pulse 99 95 97 Oximetry 05/22/19 05/22/19 14:00 14:19 Temperature Pulse Rate Respiratory 20 Rate Blood Pressure 157/97 O2 Sat by Pulse Oximetry Medical Decision Making - Medical Decision Making EKG shows normal sinus rhythm at 66 bpm MT interval 132 QRS is 82 QT interval 372 QTC is 389. Patient's EKG shows no ST segment elevation or depression or T wave abnormalities are noted. CT of the chest and abdomen showed no aortic dissection and no other abnormality was noted. I spoke with Dr. Feldman agreed to admit the patient admitted the patient wrote admitting orders. I consulted cardiology as well as hematology for the elevated white count. - Lab Data Result diagrams: 05/22/19 12:38 05/22/19 12:38 Lab Results 05/22/19 05/22/19 05/22/19 Range/Units 12:38 12:38 12:38 WBC 28.8 H (3.8-10.6) k/uL RBC 5.19 (3.80-5.40) m/uL Hgb 17.0 H (11.4-16.0) gm/dL Hct 50.1 H (34.0-46.0) % MCV 96.5 (80.0-100.0) fL MCH 32.7 (25.0-35.0) pg MCHC 33.9 (31.0-37.0) g/dL RDW 11.9 (11.5-15.5) % Plt Count 354 (150-450) k/uL Neutrophils % 91 % Lymphocytes % 5 % Monocytes % 3 % Eosinophils % 0 % Basophils % 1 % Neutrophils # 26.0 H (1.3-7.7) k/uL Lymphocytes # 1.3 (1.0-4.8) k/uL Monocytes # 1.0 (0-1.0) k/uL Eosinophils # 0.0 (0-0.7) k/uL Basophils # 0.1 (0-0.2) k/uL PT 9.7 (9.0-12.0) sec INR 0.9 (<1.2) APTT 22.7 (22.0-30.0) sec Sodium 139 (137-145) mmol/L Potassium 4.1 (3.5-5.1) mmol/L Chloride 105 (98-107) mmol/L Carbon Dioxide 23 (22-30) mmol/L Anion Gap 11 mmol/L BUN 14 (7-17) mg/dL Creatinine 0.75 (0.52-1.04) mg/dL Est GFR (CKD-EPI)AfAm >90 (>60 ml/min/1.73 sqM) Est GFR (CKD-EPI)NonAf >90 (>60 ml/min/1.73 sqM) Glucose 124 H (74-99) mg/dL Plasma Lactic Acid Mitch (0.7-2.0) mmol/L Calcium 10.6 H (8.4-10.2) mg/dL Magnesium 2.1 (1.6-2.3) mg/dL Total Bilirubin 0.6 (0.2-1.3) mg/dL AST 23 (14-36) U/L ALT 68 H (9-52) U/L Alkaline Phosphatase 86 (38-126) U/L Troponin I (0.000-0.034) ng/mL Total Protein 8.0 (6.3-8.2) g/dL Albumin 5.0 (3.5-5.0) g/dL Urine Color Urine Appearance (Clear) Urine pH (5.0-8.0) Ur Specific [place] (1.001-1.035) Urine Protein (Negative) Urine Glucose (UA) (Negative) Urine Ketones (Negative) Urine Blood (Negative) Urine Nitrite (Negative) Urine Bilirubin (Negative) Urine Urobilinogen (<2.0) mg/dL Ur Leukocyte Esterase (Negative) 05/22/19 05/22/19 05/22/19 Range/Units 12:38 14:48 15:38 WBC (3.8-10.6) k/uL RBC (3.80-5.40) m/uL Hgb (11.4-16.0) gm/dL Hct (34.0-46.0) % MCV (80.0-100.0) fL MCH (25.0-35.0) pg MCHC (31.0-37.0) g/dL RDW (11.5-15.5) % Plt Count (150-450) k/uL Neutrophils % % Lymphocytes % % Monocytes % % Eosinophils % % Basophils % % Neutrophils # (1.3-7.7) k/uL Lymphocytes # (1.0-4.8) k/uL Monocytes # (0-1.0) k/uL Eosinophils # (0-0.7) k/uL Basophils # (0-0.2) k/uL PT (9.0-12.0) sec INR (<1.2) APTT (22.0-30.0) sec Sodium (137-145) mmol/L Potassium (3.5-5.1) mmol/L Chloride (98-107) mmol/L Carbon Dioxide (22-30) mmol/L Anion Gap mmol/L BUN (7-17) mg/dL Creatinine (0.52-1.04) mg/dL Est GFR (CKD-EPI)AfAm (>60 ml/min/1.73 sqM) Est GFR (CKD-EPI)NonAf (>60 ml/min/1.73 sqM) Glucose (74-99) mg/dL Plasma Lactic Acid Mitch 1.6 (0.7-2.0) mmol/L Calcium (8.4-10.2) mg/dL Magnesium (1.6-2.3) mg/dL Total Bilirubin (0.2-1.3) mg/dL AST (14-36) U/L ALT (9-52) U/L Alkaline Phosphatase (38-126) U/L Troponin I <0.012 (0.000-0.034) ng/mL Total Protein (6.3-8.2) g/dL Albumin (3.5-5.0) g/dL Urine Color Light Yellow Urine Appearance Clear (Clear) Urine pH 7.5 (5.0-8.0) Ur Specific [place] >1.050 H (1.001-1.035) Urine Protein Negative (Negative) Urine Glucose (UA) Negative (Negative) Urine Ketones Negative (Negative) Urine Blood Negative (Negative) Urine Nitrite Negative (Negative) Urine Bilirubin Negative (Negative) Urine Urobilinogen <2.0 (<2.0) mg/dL Ur Leukocyte Esterase Negative (Negative) Disposition Clinical Impression: Chest pain, Leukocytosis Disposition: ADMITTED IP TO THIS HOSP Referrals: Richard Feldman MD [Primary Care Provider] - 1-2 days Time of Disposition: 16:05
[2019-05-22 13:03] LABS: ALT 68 U/L (9-52); AST 23 U/L (14-36); African American GFR (CKD) >90 (>60 ml/min/1.73 sqM); Alkaline Phosphatase 86 U/L (38-126); Anion Gap 11 mmol/L; Blood Urea Nitrogen 14 mg/dL (7-17); Calcium 10.6 mg/dL (8.4-10.2); Carbon Dioxide 23 mmol/L (22-30); Chloride 105 mmol/L (98-107); Glucose 124 mg/dL (74-99); Magnesium 2.1 mg/dL (1.6-2.3); Potassium 4.1 mmol/L (3.5-5.1); Sodium 139 mmol/L (137-145); Total Bilirubin 0.6 mg/dL (0.2-1.3)
[2019-05-22] MEDS ORDERED: hydrALAZINE HCL 20 MG/ML 1 ML VIAL IVP STA (13:03)
[2019-05-22 13:10] LABS: Basophils # (A) 0.1 k/uL (0-0.2); Basophils % (A) 1 %; Eosinophils % (A) 0 %; HCT 50.1 % (34.0-46.0); Lymphocytes # (A) 1.3 k/uL (1.0-4.8); Lymphocytes % (A) 5 %; MCH 32.7 pg (25.0-35.0); MCHC 33.9 g/dL (31.0-37.0); MCV 96.5 fL (80.0-100.0); Mean Platelet Volume 6.6; Monocytes % (A) 3 %; Neutrophils % (A) 91 %; Platelet Count 354 k/uL (150-450); RBC 5.19 m/uL (3.80-5.40); RDW 11.9 % (11.5-15.5); WBC 28.8 k/uL (3.8-10.6)
[2019-05-22] MEDS ORDERED: FAMOTIDINE 20 MG/2 ML VIAL IV STA (13:12)
[2019-05-22] MEDS ORDERED: methylPREDNISolone SOD SUCCI 125 MG/2 ML VIAL IV STA (13:12)
[2019-05-22] MEDS ORDERED: diphenhydrAMINE 50 MG/ML 1 ML VIAL IVP STA (13:12)
[2019-05-22 13:21] LABS: INR 0.9 (<1.2); Partial Thromboplastin Time 22.7 sec (22.0-30.0); Prothrombin Time 9.7 sec (9.0-12.0)
--- NOTE | 2019-05-22 14:52 | CT ---
EXAMINATION TYPE: CT angio thor/abd pel aorta DATE OF EXAM: 05/22/2019 COMPARISON: 06/26/2014 HISTORY: chest and back pain CT DLP: 571 mGycm CONTRAST: CTA thoracic and abdominal aorta with 3-D reconstruction is performed and without and with IV Contras t, patient injected with 100 mL of Isovue 370. Contrast CTA of the thoracic and abdominal aorta was performed from the lung apex through the bifurca tion. 3-D reconstruction imaging obtained at a separate workstation. CT Chest: THORACIC AORTA: There is no evidence for aneurysm. No dissection or mediastinal hematoma. Mild ath eromatous changes are seen. LUNGS: Mild upper lobe emphysematous changes redemonstrated. The lungs are clear and free of infiltra te or atelectasis. No pulmonary nodule or mass is detected. No pleural effusion or CT evidence of i nterstitial lung disease. MEDIASTINUM: The heart is not enlarged. No evidence for mediastinal mass or adenopathy. HILAR STRUCTURES: No evidence for mass. No hilar adenopathy is appreciated. OTHER: No significant abnormality. CONTRAST CT ABDOMEN AND PELVIS ABDOMINAL AORTA: No evidence for abdominal aortic aneurysm. No dissection. Iliac vessels are symmet radha and patent. LIVER/GB- No significant abnormality is seen. PANCREAS- No significant abnormality is seen. SPLEEN- No significant abnormality is seen. ADRENALS- No significant abnormality is seen. KIDNEYS/BLADDER-left renal cyst 2.1 cm. Left renal parenchymal thinning upper pole BOWEL- No Significant abnormality GENITAL ORGANS: No gross abnormality seen. LYMPH NODES- No greater than 1cm abdominal or pelvic lymph nodes areappreciated. OSSEOUS STRUCTURES- No significant abnormality is seen. OTHER- No significant abnormality is seen. IMPRESSION- 1. No evidence for thoracoabdominal aortic aneurysm or dissection. 2. No acute process identified at this time.
[2019-05-22 15:45] LABS: Appearance,Urine Clear (Clear); Bilirubin,Urine Negative (Negative); Blood,Urine Negative (Negative); Color,Urine Light Yellow; Glucose,Urine (UA) Negative (Negative); Ketones,Urine Negative (Negative); Leukocyte Esterase,Urine Negative (Negative); Nitrite,Urine Negative (Negative); PH, Urine 7.5 (5.0-8.0); Protein,Urine Negative (Negative); Urobilinogen,Urine <2.0 mg/dL (<2.0)
[2019-05-22 15:50] LABS: Specific Gravity,Urine >1.050 (1.001-1.035)
[2019-05-22] MEDS ORDERED: NITROGLYCERIN SL TABS 0.4 MG TAB SUBLINGUAL PRN (16:07)
[2019-05-22 17:03] LABS: T4, Free (Free Thyroxine) 1.08 ng/dL (0.78-2.19)
[2019-05-22] MEDS: traMADol 50 MG TAB PO PRN (17:56)
[2019-05-22] MEDS: NITROGLYCERIN OINT 1 INCH/GM PACKET TOPICAL SCH ×2 (18:33→23:22)
[2019-05-22] MEDS ORDERED: IPRATROPIUM-ALBUTEROL 3 ML NEB INHALATION PRN (20:20)
[2019-05-23] MEDS: NITROGLYCERIN OINT 1 INCH/GM PACKET TOPICAL SCH (03:50)
[2019-05-23 04:18] LABS: Cholesterol 267 mg/dL (<200); HDL Cholesterol 104 mg/dL (40-60); LDL Cholesterol,Calculated 121 mg/dL (0-99); Triglycerides 208 mg/dL (<150)
[2019-05-23] MEDS: traMADol 50 MG TAB PO PRN (04:20)
[2019-05-23] MEDS: IPRATROPIUM-ALBUTEROL 3 ML NEB INHALATION SCH ×5 (04:28→19:47)
--- NOTE | 2019-05-23 06:53 | P.CRDCN ---
History of Present Illness Consult date: 05/23/19 Chief complaint: Chest pain History of present illness: This is a pleasant 49-year-old female patient who sees Dr. Jeronimo in the office on regular basis with a past medical history significant for cardiac arrhythmia, unknown type, but the patient stated that she underwent "ablation" several years ago, presented to the hospital complaining of chest discomfort. The patient also is known to have hypertension. She stated that she was in her usual state of health until yesterday when she was at work and started experiencing suddenly discomfort in the upper back and between the shoulders with associated discomfort to the middle of the chest. She described her discomfort as a burning sensation which was also radiates to her arm. It was associated with shortness of breath as well as a sweating. The pressure lately has been out of control. The patient is on beta jackie which was reduced recently I her primary care physician because her pressure was low according to her. When the patient presented to the emergency room she was quite hypertensive with a systolic pressure in the 190s. She underwent a computed tomography scan of the chest which showed no acute abnormalities including dissection or aneurysmal formation. The EKG showed sinus rhythm without any significant ST or T-wave abnormalities. The blood work came in to be unremarkable and she was ruled out for acute coronary event. No documented history of coronary artery disease or congestive heart failure in the past. I am going to add lisinopril to the current medical regimen. The blood pressure here in the hospital continues to be elevated but not as high as when she presented to the hospital. Beside that I'm going to obtain an echocardiogram was Doppler. Please note that the patient underwent a stress test in May 2018 and that came in to be unremarkable. Past Medical History Past Medical History: Coronary Artery Disease (CAD), Cancer, Chest Pain / Angina, GERD/Reflux, Hyperlipidemia, Hypertension, Myocardial Infarction ([place]), Seizure Disorder, Supraventricular Tachycardia (SVT) Additional Past Medical History / Comment(s): Past sinus tach, L spontaneous pneumothorax with surgery,emphysema stage 3, bronchitis, cervical cancer with surgery, uterine fibroids with surgery, ovarian cysts, umbilical and esophageal hernia per pt, Raynaulds syndrome, POTs, no seizure since 2008, gastritis, diverticular disease. Last Myocardial Infarction Date:: DECEMBER 2012 History of Any Multi-Drug Resistant Organisms: None Reported Past Surgical History: Appendectomy, Cardiac Ablation, Section, Cholecystectomy, Heart Catheterization, Hysterectomy, Tubal Ligation Additional Past Surgical History / Comment(s): LT LUNG SURG W/ PLEURODESIS, D/T PNEUMOTHORAX, LEEP, COLPOSCOPY, EGD/COLONOSCOPY. Past Anesthesia/Blood Transfusion Reactions: Postoperative Nausea & Vomiting (PONV) Additional Past Anesthesia/Blood Transfusion Reaction / Comment(s): NEVER HAD BLOOD Past Psychological History: Depression Additional Psychological History / Comment(s): Pt lives with her mother and stays at her boyfriends at times. She drives. She is currently unemployed. Smoking Status: Former smoker Past Alcohol Use History: None Reported Additional Past Alcohol Use History / Comment(s): Pt started smoking as a teen and has quit several times over the years and is currently trying to quit again. She uses to smoke over a ppd but lately has cut down to 5-8 cigarettes a day. Past Drug Use History: None Reported Additional Drug Use History / Comment(s): Pt denies any prior/current drug use. - Past Family History Father Family Medical History: Diabetes Mellitus Additional Family Medical History / Comment(s): FATHER IN [place] Mother Family Medical History: Hyperlipidemia, Hypertension, Osteoarthritis (OA), Rheumatoid Arthritis (RA) Additional Family Medical History / Comment(s): MOTHER IS LIVING AND IS 64YRS OLD. Medications and Allergies Home Medications Medication Instructions Recorded Confirmed Type Albuterol Inhaler [Ventolin Hfa 1 - 2 puff INHALATION RT-Q6H PRN 12/21/17 05/22/19 History Inhaler] traMADol HCL [Ultram] 50 mg PO Q4HR PRN 3 Days #18 tab 12/22/17 05/22/19 Rx Omeprazole 40 mg PO DAILY 30 Days #30 06/14/18 05/22/19 Rx capsule. Propranolol HCl [Propranolol HCl 60 mg PO DAILY 05/22/19 05/22/19 History ER] Umeclidinium [place] [Incruse 1 puff INHALATION RT-DAILY 05/22/19 05/22/19 History Ellipta] Allergies Allergy/AdvReac Type Severity Reaction Status Date / Time erythromycin base Allergy Rapid Verified 05/22/19 13:26 Heart Rate heparin Allergy Unknown Verified 05/22/19 13:26 latex Allergy Rash/Hives Verified 05/22/19 13:26 Penicillins Allergy Rash/Hives Verified 05/22/19 13:26 propoxyphene napsylate Allergy Unknown Verified 05/22/19 13:26 [facility] derived Allergy Swelling Verified 05/22/19 13:26 hydrocodone bitartrate AdvReac Itching Verified 05/22/19 13:26 [From [facility]] Physical Exam Vitals: Vital Signs Temp Pulse Pulse Pulse Pulse Resp BP 05/23/19 04:35 84 05/23/19 04:30 78 05/23/19 04:00 97.9 F 69 18 05/23/19 01:20 74 16 05/23/19 00:00 97.8 F 64 18 05/22/19 23:17 16 05/22/19 20:00 18 05/22/19 19:44 97.9 F 73 18 05/22/19 17:20 98.0 F 69 18 05/22/19 17:00 20 05/22/19 16:58 20 132/86 05/22/19 16:32 20 05/22/19 14:19 20 05/22/19 14:00 157/97 05/22/19 13:00 65 16 170/107 05/22/19 12:30 78 16 05/22/19 12:16 98.4 F 79 18 201/111 BP Pulse Ox 05/23/19 04:35 05/23/19 04:30 05/23/19 04:00 159/97 97 05/23/19 01:20 180/84 05/23/19 00:00 179/104 96 05/22/19 23:17 05/22/19 20:00 05/22/19 19:44 154/90 97 05/22/19 17:20 174/82 99 05/22/19 17:00 05/22/19 16:58 96 05/22/19 16:32 05/22/19 14:19 05/22/19 14:00 05/22/19 13:00 97 05/22/19 12:30 95 05/22/19 12:16 99 Intake and Output 05/22/19 05/22/19 05/23/19 14:59 22:59 06:59 Other: # Voids 1 Weight 52.163 kg - Constitutional General appearance: no acute distress - Respiratory Respiratory: bilateral: CTA - Cardiovascular Rhythm: regular Heart sounds: normal: S1, S2 Results 05/22/19 12:38 05/22/19 12:38 Cardiac Enzymes 05/22/19 05/22/19 05/22/19 Range/Units 12:38 12:38 18:04 AST 23 (14-36) U/L Troponin I <0.012 <0.012 (0.000-0.034) ng/mL 05/23/19 Range/Units 00:32 AST (14-36) U/L Troponin I <0.012 (0.000-0.034) ng/mL Coagulation 05/22/19 Range/Units 12:38 PT 9.7 (9.0-12.0) sec APTT 22.7 (22.0-30.0) sec Lipids 05/22/19 Range/Units 12:38 Triglycerides 208 H (<150) mg/dL Cholesterol 267 H (<200) mg/dL HDL Cholesterol 104 H (40-60) mg/dL CBC 05/22/19 Range/Units 12:38 WBC 28.8 H (3.8-10.6) k/uL RBC 5.19 (3.80-5.40) m/uL Hgb 17.0 H (11.4-16.0) gm/dL Hct 50.1 H (34.0-46.0) % Plt Count 354 (150-450) k/uL Comprehensive Metabolic Panel 05/22/19 Range/Units 12:38 Sodium 139 (137-145) mmol/L Potassium 4.1 (3.5-5.1) mmol/L Chloride 105 (98-107) mmol/L Carbon Dioxide 23 (22-30) mmol/L BUN 14 (7-17) mg/dL Creatinine 0.75 (0.52-1.04) mg/dL Glucose 124 H (74-99) mg/dL Calcium 10.6 H (8.4-10.2) mg/dL AST 23 (14-36) U/L ALT 68 H (9-52) U/L Alkaline Phosphatase 86 (38-126) U/L Total Protein 8.0 (6.3-8.2) g/dL Albumin 5.0 (3.5-5.0) g/dL Current Medications Generic Name Dose Route Start Last Admin Trade Name Freq PRN Reason Stop Dose Admin Albuterol/Ipratropium 3 ml 05/23/19 08:00 Duoneb 0.5 Mg-3 Mg/3 Ml Soln INHALATION RT-QID ELISA Albuterol/Ipratropium 3 ml 05/22/19 20:20 05/23/19 04:31 Duoneb 0.5 Mg-3 Mg/3 Ml Soln INHALATION 05/29/19 20:21 3 ml RT-Q4H PRN Administration Shortness Of Breath Aspirin 325 mg 05/23/19 09:00 Aspirin PO DAILY [facility] Lisinopril 5 mg 05/23/19 09:00 Zestril PO DAILY [facility] Nitroglycerin 0.4 mg 05/22/19 16:07 Nitrostat SUBLINGUAL Q5M PRN Chest Pain Nitroglycerin 1 inch 05/22/19 18:00 05/23/19 03:50 Nitro-Bid Oint TOPICAL Not Given Q6HR [facility] Pantoprazole Sodium 40 mg 05/23/19 07:30 Protonix PO AC-BRKFST [facility] Propranolol HCl 60 mg 05/23/19 09:00 Inderal La PO DAILY [facility] Tramadol HCl 50 mg 05/22/19 16:55 05/23/19 04:20 Ultram PO 50 mg Q4HR PRN Administration Pain Intake and Output 05/22/19 05/22/19 05/23/19 14:59 22:59 06:59 Other: # Voids 1 Weight 52.163 kg Patient Weight 05/23/19 06:59 Weight 52.163 kg 05/22/19 12:38 05/22/19 12:38 Assessment and Plan Assessment: Assessment #1 hypertensive emergency Plan #1 acute coronary syndrome was ruled out #2 aortic dissection was ruled out as well #3 I would recommend adding lisinopril to the current medical regimen #4 obtain an echocardiogram was Doppler #5 if the pressure comes down later on today, and the patient is chest pain- free, she might be able to be discharged home and follow-up with Dr. Jeronimo Thank you for allowing us participate in her care
[2019-05-23] MEDS: ASPIRIN 325 MG TAB PO SCH (08:26)
[2019-05-23] MEDS: PROPRANOLOL LA 60 MG CAP.SA.24H PO SCH (08:26)
[2019-05-23] MEDS: PANTOPRAZOLE 40 MG TABLET PO SCH (08:26)
[2019-05-23] MEDS ORDERED: LISINOPRIL 10 MG TAB PO SCH (09:00)
--- NOTE | 2019-05-23 10:34 | ECHOF ---
Referral Reason:cp MEASUREMENTS -------- HEIGHT: 165.1 cm WEIGHT: 52.2 kg BP: 159/97 RVIDd: 2.9 cm (< 3.3) IVSd: 0.7 cm (0.6 - 1.1) LVIDd: 4.2 cm (3.9 - 5.3) LVPWd: 1.1 cm (0.6 - 1.1) IVSs: 1.0 cm LVIDs: 3.0 cm LVPWs: 1.1 cm LA Diam: 2.7 cm (2.7 - 3.8) LAESV Index (A-L): 22.81 ml/m Ao Diam: 2.2 cm (2.0 - 3.7) AV Cusp: 1.2 cm (1.5 - 2.6) LA Diam: 3.4 cm (2.7 - 3.8) MV EXCURSION: 18.221 mm (> 18.000) MV EF SLOPE: 134 mm/s (70 - 150) EPSS: 0.6 cm MV E Christopher: 0.78 m/s MV DecT: 135 ms MV A Christopher: 0.52 m/s MV E/A Ratio: 1.50 RAP: 5.00 mmHg RVSP: 14.63 mmHg FINDINGS -------- Sinus rhythm. This was a technically good study. LV size, wall thickness and systolic function are normal, with an EF greater than 55%. The left reed tricular size is normal. The diastolic filling pattern is normal for the age of the patient {E/E'}. The right ventricle is normal in size. The left atrial size is normal. Normal LA size by volume 22+/-6 ml/m2. The right atrial size is normal. The aortic valve is trileaflet, and appears structurally normal. No aortic stenosis or regurgitation. Mild mitral annular calcification present. Mild mitral regurgitation is present. Mild tricuspid regurgitation present. Right ventricular systolic pressure is normal at < 35 mmHg. There is no evidence of pulmonary hypertension. There is no pulmonic regurgitation present. The aortic root size is normal. Echo free space represents a pericardial fat pad. CONCLUSIONS -------- 1. Sinus rhythm. 2. This was a technically good study. 3. LV size, wall thickness and systolic function are normal, with an EF greater than 55%. 4. The left ventricular size is normal. 5. The diastolic filling pattern is normal for the age of the patient {E/E'} 6. The right ventricle is normal in size. 7. The left atrial size is normal. 8. Normal LA size by volume 22+/-6 ml/m2. 9. The right atrial size is normal. 10. The aortic valve is trileaflet, and appears structurally normal. No aortic stenosis or regurgitat ion. 11. Mild mitral annular calcification present. 12. Mild mitral regurgitation is present. 13. Mild tricuspid regurgitation present. 14. Right ventricular systolic pressure is normal at < 35 mmHg. 15. There is no evidence of pulmonary hypertension. 16. There is no pulmonic regurgitation present. 17. The aortic root size is normal. 18. Echo free space represents a pericardial fat pad. HAND TRIMMER: Ngozi Mckay RDCS
[2019-05-23 11:50] VITALS: BMI 19.1
[2019-05-23] MEDS ORDERED: LISINOPRIL 5 MG TAB PO ONE (11:50)
[2019-05-23] MEDS: Acetaminophen-Codeine 300-30mg TAB PO PRN ×2 (12:00→17:58)
--- NOTE | 2019-05-23 12:15 | P.HPIM ---
History of Present Illness 49-year-old female presented to the emergency room with complaints of fatigue for 2 months sweats chills excruciating midthoracic pain. Noted leukocytosis with a white count of 28. Patient states she's been on prednisone for of her emphysema which is stage III. Patient complaining of headache. Patient hypertensive crisis. Chest pain medically cleared by cardiology with troponins negative 3 Review of Systems Constitutional: Reports fatigue Respiratory: Reports dyspnea Integumentary: Reports pruritus, Reports rash Neurological: Reports headaches Past Medical History Past Medical History: Coronary Artery Disease (CAD), Cancer, Chest Pain / Angina, GERD/Reflux, Hyperlipidemia, Hypertension, Myocardial Infarction ([place]), Seizure Disorder, Supraventricular Tachycardia (SVT) Additional Past Medical History / Comment(s): Past sinus tach, L spontaneous pneumothorax with surgery,emphysema stage 3, bronchitis, cervical cancer with surgery, uterine fibroids with surgery, ovarian cysts, umbilical and esophageal hernia per pt, Raynaulds syndrome, POTs, no seizure since 2008, gastritis, diverticular disease. Last Myocardial Infarction Date:: DECEMBER 2012 History of Any Multi-Drug Resistant Organisms: None Reported Past Surgical History: Appendectomy, Cardiac Ablation, Section, Cholecystectomy, Heart Catheterization, Hysterectomy, Tubal Ligation Additional Past Surgical History / Comment(s): LT LUNG SURG W/ PLEURODESIS, D/T PNEUMOTHORAX, LEEP, COLPOSCOPY, EGD/COLONOSCOPY. Past Anesthesia/Blood Transfusion Reactions: Postoperative Nausea & Vomiting (PONV) Additional Past Anesthesia/Blood Transfusion Reaction / Comment(s): NEVER HAD BLOOD Past Psychological History: Depression Additional Psychological History / Comment(s): Pt lives with her mother and stays at her boyfriends at times. She drives. She is currently unemployed. Smoking Status: Former smoker Past Alcohol Use History: None Reported Additional Past Alcohol Use History / Comment(s): Pt started smoking as a teen and has quit several times over the years and is currently trying to quit again. She uses to smoke over a ppd but lately has cut down to 5-8 cigarettes a day. Past Drug Use History: None Reported Additional Drug Use History / Comment(s): Pt denies any prior/current drug use. - Past Family History Father Family Medical History: Diabetes Mellitus Additional Family Medical History / Comment(s): FATHER IN [place] Mother Family Medical History: Hyperlipidemia, Hypertension, Osteoarthritis (OA), Rheumatoid Arthritis (RA) Additional Family Medical History / Comment(s): MOTHER IS LIVING AND IS 64YRS OLD. Medications and Allergies Home Medications Medication Instructions Recorded Confirmed Type Albuterol Inhaler [Ventolin Hfa 1 - 2 puff INHALATION RT-Q6H PRN 12/21/17 05/22/19 History Inhaler] traMADol HCL [Ultram] 50 mg PO Q4HR PRN 3 Days #18 tab 12/22/17 05/22/19 Rx Omeprazole 40 mg PO DAILY 30 Days #30 06/14/18 05/22/19 Rx capsule. Propranolol HCl [Propranolol HCl 60 mg PO DAILY 05/22/19 05/22/19 History ER] Umeclidinium [place] [Incruse 1 puff INHALATION RT-DAILY 05/22/19 05/22/19 History Ellipta] Allergies Allergy/AdvReac Type Severity Reaction Status Date / Time erythromycin base Allergy Rapid Verified 05/22/19 13:26 Heart Rate heparin Allergy Unknown Verified 05/22/19 13:26 latex Allergy Rash/Hives Verified 05/22/19 13:26 Penicillins Allergy Rash/Hives Verified 05/22/19 13:26 propoxyphene napsylate Allergy Unknown Verified 05/22/19 13:26 [From [facility]] shellfish derived Allergy Swelling Verified 05/22/19 13:26 hydrocodone bitartrate AdvReac Itching Verified 05/22/19 13:26 [From [place]] Physical Exam Vitals: Vital Signs Temp Pulse Pulse Pulse Pulse Resp BP 05/23/19 11:27 98.0 F 62 18 05/23/19 07:00 97.7 F 60 18 05/23/19 04:35 84 05/23/19 04:30 78 05/23/19 04:00 97.9 F 69 18 05/23/19 01:20 74 16 05/23/19 00:00 97.8 F 64 18 05/22/19 23:17 16 05/22/19 20:00 18 05/22/19 19:44 97.9 F 73 18 05/22/19 17:20 98.0 F 69 18 05/22/19 17:00 20 05/22/19 16:58 20 132/86 05/22/19 16:32 20 05/22/19 14:19 20 05/22/19 14:00 157/97 05/22/19 13:00 65 16 170/107 05/22/19 12:30 78 16 05/22/19 12:16 98.4 F 79 18 201/111 BP BP Pulse Ox 05/23/19 11:27 171/100 98 05/23/19 07:00 173/98 96 05/23/19 04:35 05/23/19 04:30 05/23/19 04:00 159/97 97 05/23/19 01:20 180/84 05/23/19 00:00 179/104 96 05/22/19 23:17 05/22/19 20:00 05/22/19 19:44 154/90 97 05/22/19 17:20 174/82 99 05/22/19 17:00 05/22/19 16:58 96 05/22/19 16:32 05/22/19 14:19 05/22/19 14:00 05/22/19 13:00 97 05/22/19 12:30 95 05/22/19 12:16 99 Intake and Output 05/22/19 05/23/19 05/23/19 22:59 06:59 14:59 Other: # Voids 1 Weight 52.163 kg - Constitutional General appearance: mild distress - EENT Eyes: PERRLA Ears: bilateral: normal - Neck Neck: normal ROM - Respiratory Respiratory: bilateral: diminished - Cardiovascular Rhythm: regular - Gastrointestinal General gastrointestinal: normal bowel sounds, soft - Integumentary Integumentary: rash - Neurologic Neurologic: CNII-XII intact - Musculoskeletal Musculoskeletal: gait normal - Psychiatric Psychiatric: A&O x's 3, appropriate affect, intact judgment & insight Results CBC & Chem 7: 05/22/19 12:38 05/22/19 12:38 Labs: Abnormal Lab Results - Last 24 Hours (Table) 05/22/19 05/22/19 05/22/19 Range/Units 12:38 12:38 12:38 WBC 28.8 H (3.8-10.6) k/uL Hgb 17.0 H (11.4-16.0) gm/dL Hct 50.1 H (34.0-46.0) % Neutrophils # 26.0 H (1.3-7.7) k/uL Glucose 124 H (74-99) mg/dL Calcium 10.6 H (8.4-10.2) mg/dL ALT 68 H (9-52) U/L Triglycerides 208 H (<150) mg/dL Cholesterol 267 H (<200) mg/dL LDL Cholesterol, Calc 121 H (0-99) mg/dL HDL Cholesterol 104 H (40-60) mg/dL Ur Specific [place] (1.001-1.035) 05/22/19 Range/Units 15:38 WBC (3.8-10.6) k/uL Hgb (11.4-16.0) gm/dL Hct (34.0-46.0) % Neutrophils # (1.3-7.7) k/uL Glucose (74-99) mg/dL Calcium (8.4-10.2) mg/dL ALT (9-52) U/L Triglycerides (<150) mg/dL Cholesterol (<200) mg/dL LDL Cholesterol, Calc (0-99) mg/dL HDL Cholesterol (40-60) mg/dL Ur Specific [place] >1.050 H (1.001-1.035) CT scan - abdomen: report reviewed CT scan - chest: report reviewed Thrombosis Risk Factor Assmnt - Choose All That Apply Any of the Below Risk Factors Present?: Yes Each Factor Represents 1 point: Age 41-60 years Other Risk Factors: No Thrombosis Risk Factor Assessment Total Risk Factor Score: 1 Thrombosis Risk Factor Assessment Level: Low Risk Assessment and Plan Plan: Assessment Chest pain noncardiac troponins negative 3 Hypertensive emergency Headaches Leukocytosis History of coronary disease with VA History of cervical cancer GERD Hypertension Hyperlipidemia Seizure disorder remote Emphysema stage III History of SVT Plan Continue consultation with cardiology Consultation with hematology regarding leukocytosis
--- NOTE | 2019-05-23 12:43 | CT ---
EXAMINATION TYPE: CT brain wo con DATE OF EXAM: 05/23/2019 COMPARISON: CT mastoids 04/27/2016. HISTORY: Headache new onset for [address] DLP: 1080.4 mGycm. Automated Exposure Control for Dose Reduction was Utilized. TECHNIQUE: CT scan of the head is performed without contrast. FINDINGS: There is no acute intracranial hemorrhage, mass effect, or midline shift identified. The ventricles and sulci are within normal limits in size. [place] white matter differentiation is maintai batsheva. The globes are intact and the visualized sinuses are clear. IMPRESSION: No acute intracranial hemorrhage or midline shift is seen.
[2019-05-23 12:45] LABS: Basophils # (A) 0.1 k/uL (0-0.2); Basophils % (A) 0 %; Eosinophils % (A) 0 %; HCT 47.2 % (34.0-46.0); HGB 15.3 gm/dL (11.4-16.0); Lymphocytes # (A) 1.3 k/uL (1.0-4.8); Lymphocytes % (A) 4 %; MCH 31.3 pg (25.0-35.0); MCHC 32.4 g/dL (31.0-37.0); MCV 96.4 fL (80.0-100.0); Mean Platelet Volume 6.9; Monocytes # (A) 1.4 k/uL (0-1.0); Monocytes % (A) 4 %; Neutrophils # (A) 28.3 k/uL (1.3-7.7); Neutrophils % (A) 90 %; Platelet Count 348 k/uL (150-450); RBC 4.89 m/uL (3.80-5.40); RDW 11.8 % (11.5-15.5)
[2019-05-23 13:10] LABS: WBC 31.5 k/uL (3.8-10.6)
[2019-05-23 16:53] LABS: Ferritin 136.7 ng/mL (10.0-291.0)
[2019-05-23 17:28] LABS: Rheumatoid Factor, Qnt <4 IU/mL (0-15)
[2019-05-23] MEDS: amLODIPine 10 MG TAB PO SCH (18:01)
--- NOTE | 2019-05-23 18:17 | P.CONS ---
History of Present Illness - Reason for Consult Consult date: 05/23/19 leukocytosis Requesting physician: Gokul Arana - Chief Complaint chest pain - History of Present Illness Miss. Choi is a very pleasant female who came to the hospital with c/o chest pain. She has a history of myocardial infarction and cardiovascular disease as well as hyperlipidemia. She had cardiac workup with no acute cardiovascular etiology. Patient states that over the last 4 months she has lost approximate 20 pounds, this started when she was eating better but has continued despite relapsing to old eating habits. She has complaints of abdominal bloating, increased gas, night sweats over the last week have been moderate to severe, change in bowel habits recently to constipation, she had an EGD and colonoscopy about 3 years ago for persistent nausea and vomiting, nothing pathological identified. She has a history of cervical cancer, treated initially with LEEP procedure and then hysterectomy, she denies any chemotherapy or radiation. Patient states numbness of the feet 1 week, this is increased above her baseline, she has puritis without rash. She had a CT of the head due to persistent headache since Monday, no underlying etiology found, no vision changes. Denies ever being told she has high WBC or Hgb. Review of Systems 14 point review of systems is as stated in HPI Past Medical History Past Medical History: Coronary Artery Disease (CAD), Cancer, Chest Pain / Angina, GERD/Reflux, Hyperlipidemia, Hypertension, Myocardial Infarction (VA), Seizure Disorder, Supraventricular Tachycardia (SVT) Additional Past Medical History / Comment(s): Past sinus tach, L spontaneous pneumothorax with surgery,emphysema stage 3, bronchitis, cervical cancer with surgery, uterine fibroids with surgery, ovarian cysts, umbilical and esophageal hernia per pt, Raynaulds syndrome, POTs, no seizure since 2008, gastritis, diverticular disease. Last Myocardial Infarction Date:: DECEMBER 2012 History of Any Multi-Drug Resistant Organisms: None Reported Past Surgical History: Appendectomy, Cardiac Ablation, Section, Cholecystectomy, Heart Catheterization, Hysterectomy, Tubal Ligation Additional Past Surgical History / Comment(s): LT LUNG SURG W/ PLEURODESIS, D/T PNEUMOTHORAX, LEEP, COLPOSCOPY, EGD/COLONOSCOPY. Past Anesthesia/Blood Transfusion Reactions: Postoperative Nausea & Vomiting (PONV) Additional Past Anesthesia/Blood Transfusion Reaction / Comm: NEVER HAD BLOOD Past Psychological History: Depression Additional Psychological History / Comment(s): Pt lives with her mother and stays at her boyfriends at times. She drives. She is currently unemployed. Smoking Status: Former smoker Past Alcohol Use History: None Reported Additional Past Alcohol Use History / Comment(s): Pt started smoking as a teen and has quit several times over the years and is currently trying to quit again. She uses to smoke over a ppd but lately has cut down to 5-8 cigarettes a day. Past Drug Use History: None Reported Additional Drug Use History / Comment(s): Pt denies any prior/current drug use. - Past Family History Father Family Medical History: Diabetes Mellitus Additional Family Medical History / Comment(s): FATHER IN [place] Mother Family Medical History: Hyperlipidemia, Hypertension, Osteoarthritis (OA), Rheumatoid Arthritis (RA) Additional Family Medical History / Comment(s): MOTHER IS LIVING AND IS 64YRS OLD. Medications and Allergies Home Medications Medication Instructions Recorded Confirmed Type Albuterol Inhaler [Ventolin Hfa 1 - 2 puff INHALATION RT-Q6H PRN 12/21/17 05/22/19 History Inhaler] traMADol HCL [Ultram] 50 mg PO Q4HR PRN 3 Days #18 tab 12/22/17 05/22/19 Rx Omeprazole 40 mg PO DAILY 30 Days #30 06/14/18 05/22/19 Rx capsule. Propranolol HCl [Propranolol HCl 60 mg PO DAILY 05/22/19 05/22/19 History ER] Umeclidinium [place] [Incruse 1 puff INHALATION RT-DAILY 05/22/19 05/22/19 History Ellipta] Allergies Allergy/AdvReac Type Severity Reaction Status Date / Time erythromycin base Allergy Rapid Verified 05/22/19 13:26 Heart Rate heparin Allergy Unknown Verified 05/22/19 13:26 latex Allergy Rash/Hives Verified 05/22/19 13:26 Penicillins Allergy Rash/Hives Verified 05/22/19 13:26 propoxyphene napsylate Allergy Unknown Verified 05/22/19 13:26 [From [facility]-N] shellfish derived Allergy Swelling Verified 05/22/19 13:26 hydrocodone bitartrate AdvReac Itching Verified 05/22/19 13:26 [From [place]] Physical Exam Vitals: Vital Signs Temp Pulse Pulse Pulse Pulse Resp BP 05/23/19 16:00 18 05/23/19 15:38 98.1 F 71 18 05/23/19 11:27 98.0 F 62 18 05/23/19 07:00 97.7 F 60 18 05/23/19 04:35 84 05/23/19 04:30 78 05/23/19 04:00 97.9 F 69 18 159/97 05/23/19 01:20 74 16 180/84 05/23/19 00:00 97.8 F 64 18 179/104 05/22/19 23:17 16 05/22/19 20:00 18 05/22/19 19:44 97.9 F 73 18 154/90 BP Pulse Ox 05/23/19 16:00 05/23/19 15:38 185/106 96 05/23/19 11:27 171/100 98 05/23/19 07:00 173/98 96 05/23/19 04:35 05/23/19 04:30 05/23/19 04:00 97 05/23/19 01:20 05/23/19 00:00 96 05/22/19 23:17 05/22/19 20:00 05/22/19 19:44 97 Intake and Output 05/23/19 05/23/19 05/23/19 06:59 14:59 22:59 Intake Total 480 200 Balance 480 200 Intake: Oral 480 Other 200 Other: # Voids 1 Weight 52.163 kg - Constitutional General appearance: average body habitus, cooperative, no acute distress - EENT Eyes: anicteric sclerae, EOMI, poor dentition ENT: hearing grossly normal, normal oropharynx - Neck Neck: no lymphadenopathy - Respiratory Respiratory: bilateral: CTA - Cardiovascular Rhythm: regular Heart sounds: normal: S1, S2 Abnormal Heart Sounds: no systolic murmur, no diastolic murmur, no rub, no S3 Gallop, no S4 Gallop, no click, no other leg Peripheral Edema: bilateral: None - Gastrointestinal General gastrointestinal: no absent bowel sounds, no decreased bowel sounds, no distended, no hepatomegaly, no hyperactive bowel sounds, normal bowel sounds, no organomegaly, no rigid, no scaphoid, soft, no splenomegaly, no tenderness, no umbilical hernia, no ventral hernia - Integumentary jimbo, flushed complexion - Neurologic Neurologic: CNII-XII intact - Musculoskeletal Musculoskeletal: strength equal bilaterally - Psychiatric Psychiatric: A&O x's 3, appropriate affect, intact judgment & insight Results CBC & Chem 7: 05/23/19 10:48 05/22/19 12:38 Labs: Abnormal Lab Results - Last 24 Hours (Table) 05/22/19 05/23/19 Range/Units 12:38 10:48 WBC 31.5 H (3.8-10.6) k/uL Hct 47.2 H (34.0-46.0) % Neutrophils # 28.3 H (1.3-7.7) k/uL Monocytes # 1.4 H (0-1.0) k/uL Triglycerides 208 H (<150) mg/dL Cholesterol 267 H (<200) mg/dL LDL Cholesterol, Calc 121 H (0-99) mg/dL HDL Cholesterol 104 H (40-60) mg/dL Microbiology - Last 24 Hours (Table) 05/22/19 14:17 Blood Culture - Preliminary Blood No Growth after 24 hours Comments: Thoracic aorta CT report reviewed-no PE ECHO report reviewed CT Scan - head: report reviewed Assessment and Plan (1) Leukocytosis Narrative/Plan: Noted in EMR on several admits though not as high as this visit. Previously WBD/diff returned to baseline. Will recheck in AM, further recommendations to follow. Current Visit: Yes Status: Acute Priority: High Code(s): D72.829 - ELEVATED WHITE BLOOD CELL COUNT, UNSPECIFIED SNOMED Code(s): 963456193 Plan: Polycythemia-Hgb/Hct reviewed, no need for phlebotomy at this time. Work up in progress
[2019-05-23] MEDS: LISINOPRIL 10 MG TAB PO SCH (20:06)
[2019-05-24 05:22] LABS: % Iron Saturation 60.71 (12.00-45.00); Iron 187 ug/dL (50-170); Total Iron Binding Capacity 308 ug/dL (228-460)
[2019-05-24] MEDS: IPRATROPIUM-ALBUTEROL 3 ML NEB INHALATION SCH ×4 (07:45→20:24)
[2019-05-24] MEDS: PANTOPRAZOLE 40 MG TABLET PO SCH (07:56)
[2019-05-24] MEDS: LISINOPRIL 10 MG TAB PO SCH (07:56)
[2019-05-24] MEDS: amLODIPine 10 MG TAB PO SCH (07:56)
[2019-05-24] MEDS: ASPIRIN 325 MG TAB PO SCH (07:56)
[2019-05-24] MEDS: PROPRANOLOL LA 60 MG CAP.SA.24H PO SCH (07:56)
--- NOTE | 2019-05-24 10:03 | P.PN ---
Subjective This is a pleasant 49-year-old female past medical history significant for SVT status post ablation, hypertension and dyslipidemia. She follows in the office with Dr. Jeronimo. We're following her secondary to hypertension. She was initiated on lisinopril 5 mg daily and given an additional dose of 5 mg in the afternoon as her blood pressure remained elevated. Primary care team increased this to 10 mg BID and also added amlodipine 10 mg daily. Blood pressure this morning 146/81 heart rate 56 afebrile and maintaining oxygen saturation on room air. She is seen and examined sitting up in bed in no acute distress. She denies chest pain, shortness of breath, dizziness, palpitations or headache. Last time she saw Dr. Fraser in the office was June 2018 and at that time she was on losartan 150 mg daily. She states in the interim she cannot recall who stopped this medication however she does recall having intermittent episodes of dizziness and low blood pressure. Echocardiogram obtained yesterday reveals preserved LV systolic function with ejection fraction 55-60% with no wall motion abnormalities. GENERAL: Well-appearing, well-nourished and in no acute distress. NECK: Supple without JVD or thyromegaly. LUNGS: Breath sounds clear to auscultation bilaterally. Respiration equal and unlabored. No wheezes, rales or rhonchi. HEART: Regular rate and rhythm without murmurs, rubs or gallops. S1 and S2 heard. EXTREMITIES: Normal range of motion, no edema. No clubbing or cyanosis. Peripheral pulses intact. ASSESSMENT Hypertensive emergency, improved PLAN Blood pressure is stable. Would recommend decreasing amlodipine to 5 mg at bedtime and give lisinopril 20 mg in the morning. Hemodynamically stable for discharge. Follow up with Dr. Jeronimo recommended. Discussed with her the importance of one provider managing her blood pressure regimen. She states she would like Dr. Feldman to handle this. Advised her to take her blood pressure daily and keep a journal to bring with her to follow up appointment with Dr. Feldman for adjustment of blood pressure medications as needed. We will follow as needed, please feel free to call with questions or concerns. Nurse Practitioner note has been reviewed, I agree with a documented findings and plan of care. Patient was seen and examined. Objective - Vital Signs Vital signs: Vital Signs Temp 98.4 F 05/24/19 07:05 Pulse 56 L 05/24/19 07:05 Resp 18 05/24/19 07:05 BP 146/81 05/24/19 07:05 Pulse Ox 97 05/24/19 07:05 Intake & Output 05/23/19 05/24/19 05/24/19 18:59 06:59 18:59 Intake Total 680 200 Balance 680 200 Weight 52.163 kg Intake: Oral 480 Other 200 200 Other: # Voids 1 - Labs CBC & Chem 7: 05/23/19 10:48 05/22/19 12:38 Labs: Abnormal Lab Results - Last 24 Hours (Table) 05/23/19 05/23/19 Range/Units 10:48 10:48 WBC 31.5 H (3.8-10.6) k/uL Hct 47.2 H (34.0-46.0) % Neutrophils # 28.3 H (1.3-7.7) k/uL Monocytes # 1.4 H (0-1.0) k/uL Iron 187 H (50-170) ug/dL % Saturation 60.71 H (12.00-45.00) Microbiology - Last 24 Hours (Table) 05/22/19 14:17 Blood Culture - Preliminary Blood No Growth after 24 hours
[2019-05-24 11:45] LABS: Basophils # (A) 0.1 k/uL (0-0.2); Basophils % (A) 1 %; Eosinophils # (A) 0.1 k/uL (0-0.7); Eosinophils % (A) 0 %; HGB 15.6 gm/dL (11.4-16.0); Lymphocytes % (A) 17 %; MCH 32.8 pg (25.0-35.0); MCHC 33.9 g/dL (31.0-37.0); MCV 96.7 fL (80.0-100.0); Mean Platelet Volume 5.9; Monocytes # (A) 0.8 k/uL (0-1.0); Monocytes % (A) 4 %; Neutrophils # (A) 13.6 k/uL (1.3-7.7); Neutrophils % (A) 76 %; Platelet Count 295 k/uL (150-450); RBC 4.76 m/uL (3.80-5.40); RDW 11.8 % (11.5-15.5)
[2019-05-24 12:27] LABS: African American GFR (CKD) >90 (>60 ml/min/1.73 sqM); Anion Gap 10 mmol/L; Blood Urea Nitrogen 21 mg/dL (7-17); Calcium 9.7 mg/dL (8.4-10.2); Carbon Dioxide 22 mmol/L (22-30); Chloride 105 mmol/L (98-107); Glucose 102 mg/dL (74-99); Potassium 3.9 mmol/L (3.5-5.1); Sodium 137 mmol/L (137-145)
[2019-05-24] MEDS ORDERED: ALBUTEROL INHALER 60 PUFF/8 GM INHALER INHALATION PRN (14:28)
[2019-05-24 14:39] LABS: Amylase 67 U/L (30-110)
--- NOTE | 2019-05-24 14:46 | XR ---
EXAMINATION TYPE: XR chest 1V portable DATE OF EXAM: 05/24/2019 COMPARISON: 06/05/2018 HISTORY: Hypertension and leukocytosis. TECHNIQUE: Single frontal view of the chest is obtained. FINDINGS: There is no focal air space opacity, pleural effusion, or pneumothorax seen. The cardiac silhouette size is within normal limits. Flattening of the diaphragms to suggest a component of under lying COPD. The osseous structures are intact. IMPRESSION: No acute process.
[2019-05-24] MEDS ORDERED: DOCUSATE 100 MG CAP PO PRN (14:53)
--- NOTE | 2019-05-24 15:33 | PN ---
PROGRESS NOTE DATE OF SERVICE: 05/24/2019 I am covering for Dr. Feldman, This 49-year-old woman with a past medical history of multiple medical problems admitted with back pain radiating to the front severe tender intensity which the patient because the patient fall down and the patient also had significant history of colic and multiple symptoms including weight loss, night sweats, no . The patient is being closely monitored. The patient also has family history of rheumatoid arthritis and lupus also. Patient has been closely monitored. CT scan of the brain was normal and a 2D echo with Doppler was also done which showed ejection fraction about more than 55% and the CT scan of the abdominal aorta also showed no acute abnormality of high-output or either other organs including pancreas. There is no history of fever or rigors. PAST MEDICAL HISTORY: Reviewed. REVIEW OF SYSTEMS: Cardiovascular: As mentioned earlier. RESPIRATORY: As mentioned earlier. GI: As mentioned earlier. : As mentioned earlier. NERVOUS SYSTEM: No numbness or weakness. CURRENT MEDICATIONS: Reviewed and include Tylenol No.3, DuoNeb q.i.d. p.r.n., Norvasc, aspirin. Lipitor, Zestril, Protonix, Nitrostat, Inderal [place], Ultram. PHYSICAL EXAM: Patient is alert and oriented x3. Pulse is 63, blood pressure 143/85, respiration 18, temperature 98.4, pulse ox 97% on room air. HEENT: Conjunctivae normal. NECK: No jugular venous distension. CARDIOVASCULAR: Normal. RESPIRATORY: Breath sounds diminished in the bases, no rhonchi, no crackles. ABDOMEN: Soft, mild diffuse discomfort on palpation. No guarding. No mass palpable. LEGS: No edema, no swelling. NERVOUS SYSTEM: Higher functions as mentioned earlier. Moves all 4 limbs. No focal motor or sensory deficits. LYMPHATICS: No lymph node enlargement in the neck or axillae. SKIN: No ulcers, rash, bleeding. JOINTS: No active arthropathy. LABS: WBC 18, hemoglobin is 15.6, sodium 137, potassium 3.9. Cholesterol 267. ASSESSMENT: 1. Back pain, abdominal pain for evaluation, rule out musculoskeletal pain. 2. Hyperlipidemia. 3. Rule out coronary artery disease. 4. Increased WBC, possibly secondary to steroids. 5. Apparent bronchitis, chronic obstructive pulmonary disease recently. 6. History of gastroesophageal reflux disease. 7. Hypertension. 8. Hyperlipidemia. 9. History of seizure disorder. 10.History of tachycardia. 11.History of left spontaneous pneumothorax and surgery. 12.History of laparoscopic cholecystectomy. 13.History of cervical cancer. 14.History of Raynaud phenomenon. 15.History of diverticular disease. 16.History of cardiac catheterization. 17.History of cardiac ablation. 18.Depression. 19.Remote history of nicotine dependence. RECOMMENDATION AND DISCUSSION: In this 49-year-old woman who presented with multiple complex medical issues, at this time I recommend to continue with the current medications. Continue the rest of medications. Also recommend the blood work including amylase, lipase as well. Otherwise, recommend outpatient followup. Closely follow with Cardiology regarding the symptoms and I would also recommend proton pump inhibitors and initial Lipitor, also. The overall prognosis guarded because of multiple complex medical issues. Discussed with the patient at length and a copy of this forwarded to Dr. Feldman who is the primary physician. Hematological screening was also sent. MMAGUEDAL / COBYN: [id number] / MTDNasra
[2019-05-24 15:36] LABS: C Reactive Protein <5.0 mg/L (<10.0)
[2019-05-24] MEDS: ATORVASTATIN 10 MG TAB PO SCH (15:41)
[2019-05-24] MEDS: Acetaminophen-Codeine 300-30mg TAB PO PRN (16:01)
--- NOTE | 2019-05-24 17:42 | P.PN ---
Subjective Progress Note Date: 05/24/19 The patient's symptoms are improved. She reports no new complaints. No history of any fevers/chills/nausea/vomiting. No obvious bleeding noted. Objective - Vital Signs Vital signs: Vital Signs Temp 98.1 F 05/24/19 15:56 Pulse 66 05/24/19 15:56 Resp 18 05/24/19 15:56 BP 163/89 05/24/19 15:56 Pulse Ox 96 05/24/19 15:56 Intake & Output 05/23/19 05/24/19 05/24/19 18:59 06:59 18:59 Intake Total 680 200 Balance 680 200 Weight 52.163 kg Intake: Oral 480 Other 200 200 Other: # Voids 1 1 - Constitutional General appearance: Present: no acute distress - EENT Eyes: Present: EOMI ENT: Present: hearing grossly normal, normal oropharynx - Respiratory Respiratory: bilateral: CTA - Cardiovascular Rhythm: regular Heart sounds: normal: S1, S2 - Gastrointestinal General gastrointestinal: Present: normal bowel sounds, soft - Integumentary Integumentary: Present: normal - Neurologic Neurologic: Present: CNII-XII intact - Musculoskeletal Musculoskeletal: Present: generalized weakness, strength equal bilaterally - Psychiatric Psychiatric: Present: A&O x's 3, appropriate affect - Labs CBC & Chem 7: 05/24/19 11:30 05/24/19 11:30 Labs: Abnormal Lab Results - Last 24 Hours (Table) 05/23/19 05/24/19 05/24/19 Range/Units 10:48 11:30 11:30 WBC 18.0 H (3.8-10.6) k/uL Neutrophils # 13.6 H (1.3-7.7) k/uL BUN 21 H (7-17) mg/dL Glucose 102 H (74-99) mg/dL Iron 187 H (50-170) ug/dL % Saturation 60.71 H (12.00-45.00) Microbiology - Last 24 Hours (Table) 05/22/19 14:17 Blood Culture - Preliminary Blood No Growth after 48 hours Assessment and Plan (1) Leukocytosis Narrative/Plan: This appears to be reactive, with marked decrease in total white count compared to yesterday. In addition differential reveals predominant neutrophilia. Iron studies, sed rate as well as autoimmune markers are normal. At this time are reactive condition appears to be most likely, though the exact cause of the same is unclear. A primary MPD is clinically felt to be unl ikely at this point. However would recommend outpatient follow-up with further workup if her labs show any persistent/progressive abnormality Current Visit: Yes Status: Acute Priority: High Code(s): D72.829 - ELEVATED WHITE BLOOD CELL COUNT, UNSPECIFIED SNOMED Code(s): 231779053 (2) Polycythemia Narrative/Plan: Hemoglobin level to has declined sharply after admission, with hydration. Erythropoietin level is within normal limits. Therefore at this time, again a primary polycythemia seems to be unlikely. Follow-up as an outpatient. We will check DENISE 2/other MPN testing at that time, if abnormality persists Current Visit: Yes Status: Acute Code(s): D75.1 - SECONDARY POLYCYTHEMIA SNOMED Code(s): 540163022
[2019-05-24 18:52] LABS: Urn Cannabinoid Scrn Detected (NotDetected)
[2019-05-24 18:53] LABS: Amphetamine Screen,Urine Not Detected (NotDetected); Barbiturate Screen,Urine Not Detected (NotDetected); Benzodiazepines Screen,Urine Not Detected (NotDetected); Cocaine Screen,Urine Not Detected (NotDetected); Methadone Screen, Urine Not Detected (NotDetected); Opiate Screen,Urine Not Detected (NotDetected); Oxycodone Screen, Urine Not Detected (NotDetected); Phencyclidine Screen,Urine Not Detected (NotDetected); Tricyclic Antidepressant,Urine Not Detected (NotDetected)
[2019-05-25] MEDS: IPRATROPIUM-ALBUTEROL 3 ML NEB INHALATION SCH ×4 (07:26→19:23)
[2019-05-25] MEDS: ATORVASTATIN 10 MG TAB PO SCH (08:08)
[2019-05-25] MEDS: PANTOPRAZOLE 40 MG TABLET PO SCH (08:08)
[2019-05-25] MEDS: LISINOPRIL 20 MG TAB PO SCH (08:09)
[2019-05-25] MEDS: ASPIRIN 325 MG TAB PO SCH (08:09)
[2019-05-25] MEDS: PROPRANOLOL LA 60 MG CAP.SA.24H PO SCH (08:09)
[2019-05-25] MEDS ORDERED: LISINOPRIL 10 MG TAB PO SCH (09:00)
[2019-05-25] MEDS: Acetaminophen-Codeine 300-30mg TAB PO PRN (10:12)
[2019-05-25] MEDS ORDERED: ALPRAZolam 0.5 MG TAB PO PRN (13:40)
[2019-05-25] MEDS ORDERED: DEXTROSE 5%-0.9% NACL 1,000 ML IV SCH (13:45)
--- NOTE | 2019-05-25 14:15 | P.PN ---
Subjective This is a pleasant 49 years old female with past medical history of coronary artery disease, GERD, hyperlipidemia, hypertension, seizure disorder, SVT, suggesting 3 emphysema and she follows up with Dr. Garcia, cervical cancer status post surgery, uterine fibroids status post surgery, ovarian cyst, Raynaud's syndrome. Presents because of back pain of 1-2 days duration. Patient says that the pain starts in the back like burning and goes on both sides and into the front chest as well as in both shoulders. On exam she had mainly tenderness around the lower part of the right scapula however patient denies trauma or falls. Patient denies dyspnea or vomiting. However she states she has loose bowel movement about 5-6 times a day yesterday associated with decreased appetite. No fever. has history of depression and anxiety but she is not taking any medication. Patient under stress in her life when her son has about 2 years ago and she is been having family sutures over the last few days. She has seen Dr. Avitia about a week ago and he prescribed her some antibiotics and tapering steroids and currently her breathing is fine. No coughing. No sore throat or other respiratory symptoms. Patient has been evaluated by supervisor instrument maintenance and recommended outpatient stress test Patient also was complaining of from nonspecific symptoms like weakness in her right upper extremity which is resolved now and strength is 5/5, she was com plaining of from numbness in her both feet has been going on for a week. Also she has cramps in both legs Of note the patient while she was talking she got tearful Patient states that she quit smoking about 2 months ago. She denies alcohol or illicit tracts Objective - Vital Signs Vital signs: Vital Signs Temp 98.4 F 05/25/19 12:00 Pulse 95 05/25/19 12:00 Resp 16 05/25/19 12:00 BP 146/95 05/25/19 12:00 Pulse Ox 99 05/25/19 12:00 Intake & Output 05/24/19 05/25/19 05/25/19 18:59 06:59 18:59 Intake Total 200 Balance 200 Intake: Other 200 Other: Voiding Method Toilet Toilet # Voids 1 1 - Exam GENERAL: The patient is alert and oriented x3, not in any acute distress. Well developed, well nourished. HEENT: Pupils are round and equally reacting to light. EOMI. No scleral icterus. No conjunctival pallor. Normocephalic, atraumatic. No pharyngeal erythema. No thyromegaly. CARDIOVASCULAR: S1 and S2 present. No murmurs, rubs, or gallops. PULMONARY: Chest is clear to auscultation, no wheezing or crackles. ABDOMEN: Soft, nontender, nondistended, normoactive bowel sounds. No palpable organomegaly. -MUSCULOSKELETAL: No joint swelling or deformity. Tenderness around the lower part of the right scapula EXTREMITIES: No cyanosis, clubbing, or pedal edema. NEUROLOGICAL: Gross neurological examination did not reveal any focal deficits. SKIN: No rashes. no petechiae. - Labs CBC & Chem 7: 05/24/19 11:30 05/24/19 11:30 Labs: Abnormal Lab Results - Last 24 Hours (Table) 05/24/19 Range/Units 17:50 U Marijuana (THC) Screen Detected H (NotDetected) Microbiology - Last 24 Hours (Table) 05/22/19 14:17 Blood Culture - Preliminary Blood No Growth after 48 hours Assessment and Plan Assessment: Episodes of back pain, improving however she still have some tenderness at around the lower part of the right scapula with no restriction in movement of her right upper extremity Anxiety and stress in her life Bilateral leg cramps Loose bowel movement Dehydration History of coronary artery disease history of anxiety and depression GERD Hyperlipidemia Hypertension History of seizure disorder History of SVT COPD, not in acute exacerbation. Stage III emphysematous disease and she follows up with Dr. Garcia History of cervical cancer status post surgery History of fibroid in the uterus status post surgery History of ovarian cyst Syl syndrome Previous Smoker Plan: This is a pleasant 49 years old female who presents with multiple symptoms including back pain, leg cramps and stress in her life. Also she was dehydrated with loose bowel movement. [facility] Supervisor already cleared the patient. We'll start normal saline, pain management, Xanax for anxiety, we'll check x-ray of the right side of the chest wall and around the shoulder. Check Doppler of the lower extremity to rule out DVT. Pain management. Labs and medication were reviewed.. Continue same treatment. Continue with symptomatic treatment. Resume home medication. Monitor lytes and vitals. DVT and GI prophylaxis. Further recommendations of the clinical course of the patient DVT prophylaxis: Subcutaneous heparin GI Prophylaxis: Pepcid PT/OT: Pending Prognosis is guarded
--- NOTE | 2019-05-25 15:00 | US ---
EXAMINATION TYPE: US venous doppler duplex LE DATE OF EXAM: 05/25/2019 2:40 PM COMPARISON: NONE CLINICAL HISTORY: Rule out DVT. Bilateral leg cramps. SIDE PERFORMED: Bilateral TECHNIQUE: The lower extremity deep venous system is examined utilizing real time linear array sonog anuj with graded compression, doppler sonography and color-flow sonography. VESSELS IMAGED: External Iliac Vein (EIV) Common Femoral Vein Deep Femoral Vein Greater Saphenous Vein * Femoral Vein Popliteal Vein Small Saphenous Vein * Proximal Calf Veins (* superficial vessels) Right Leg: Negative for DVT Left Leg: Negative for DVT IMPRESSION: No evidence of deep venous thrombosis in both legs.
--- NOTE | 2019-05-25 16:00 | XR ---
EXAMINATION TYPE: XR ribs RT DATE OF EXAM: 05/25/2019 COMPARISON: NONE HISTORY: Right-sided rib pain TECHNIQUE: 4 views FINDINGS: I see no pleural effusion or pneumothorax. Right lung is clear of infiltrate. The right rib s appear intact. IMPRESSION: Negative right rib exam. No fracture seen.
--- NOTE | 2019-05-25 16:01 | XR ---
EXAMINATION TYPE: XR shoulder limited RT DATE OF EXAM: 05/25/2019 COMPARISON: NONE HISTORY: Pain TECHNIQUE: Single view FINDINGS: The glenohumeral joint is intact. I see no fracture nor dislocation. There are no pathologi c calcifications. IMPRESSION: Negative right shoulder exam.
[2019-05-25] MEDS ORDERED: amLODIPine 5 MG TAB PO SCH (21:00)
[2019-05-26 06:28] LABS: Basophils # (A) 0.1 k/uL (0-0.2); Basophils % (A) 0 %; Eosinophils # (A) 0.2 k/uL (0-0.7); Eosinophils % (A) 2 %; HCT 46.5 % (34.0-46.0); HGB 16.2 gm/dL (11.4-16.0); Lymphocytes # (A) 2.7 k/uL (1.0-4.8); Lymphocytes % (A) 22 %; MCH 33.4 pg (25.0-35.0); MCHC 34.8 g/dL (31.0-37.0); MCV 96.2 fL (80.0-100.0); Mean Platelet Volume 5.6; Monocytes # (A) 0.6 k/uL (0-1.0); Monocytes % (A) 5 %; Neutrophils # (A) 8.3 k/uL (1.3-7.7); Neutrophils % (A) 69 %; Platelet Count 291 k/uL (150-450); RBC 4.83 m/uL (3.80-5.40); RDW 11.8 % (11.5-15.5); WBC 12.1 k/uL (3.8-10.6)
[2019-05-26 06:42] LABS: African American GFR (CKD) >90 (>60 ml/min/1.73 sqM); Anion Gap 6 mmol/L; Blood Urea Nitrogen 14 mg/dL (7-17); Calcium 9.3 mg/dL (8.4-10.2); Carbon Dioxide 22 mmol/L (22-30); Chloride 109 mmol/L (98-107); Glucose 134 mg/dL (74-99); Sodium 137 mmol/L (137-145)
[2019-05-26] MEDS: IPRATROPIUM-ALBUTEROL 3 ML NEB INHALATION SCH ×2 (07:26→11:45)
[2019-05-26 08:06] VITALS: PULSE 80; TEMP 98.3
[2019-05-26] MEDS: PANTOPRAZOLE 40 MG TABLET PO SCH (08:44)
[2019-05-26] MEDS: ATORVASTATIN 10 MG TAB PO SCH (08:44)
[2019-05-26] MEDS: LISINOPRIL 20 MG TAB PO SCH (08:44)
[2019-05-26] MEDS: PROPRANOLOL LA 60 MG CAP.SA.24H PO SCH (08:44)
[2019-05-26] MEDS: ASPIRIN 325 MG TAB PO SCH (08:44)
--- NOTE | 2019-05-26 12:03 | P.DS ---
Providers Date of admission: 05/24/19 14:46 Attending physician: Richard Feldman Consults: 05/22/19 16:07 Consult Physician Urgent Consulting Provider: [facility] Consult Reason/Comments: Chest pain Do you want consulting provider notified?: Yes Consult Physician Urgent Consulting Provider: Calli Jackman Consult Reason/Comments: Leukocytosis Do you want consulting provider notified?: Yes Primary care physician: Richard Feldman Hospital Course: Diagnoses: Episodes of back pain, with some tenderness at around the lower part of the right scapula with no restriction in movement of her right upper extremity. Completely resolved upon discharge Anxiety and stress in her life . Resolved prior to discharge Bilateral leg cramps. No more leg pains upon discharge Loose bowel movement. No bowel movement in 24 hours Dehydration. Improved and resolved Chronic numbness in her feet History of coronary artery disease history of anxiety and depression GERD Hyperlipidemia Hypertension History of seizure disorder History of SVT COPD, not in acute exacerbation. Stage III emphysematous disease and she follows up with Dr. Garcia History of cervical cancer status post surgery History of fibroid in the uterus status post surgery History of ovarian cyst Syl syndrome Previous Smoker Hospital course: This is a pleasant 49 years old female with past medical history of coronary artery disease, GERD, hyperlipidemia, hypertension, seizure disorder, SVT, suggesting 3 emphysema and she follows up with Dr. Avitia, cervical cancer status post surgery, uterine fibroids status post surgery, ovarian cyst, Raynaud's syndrome. Presents because of back pain of 1-2 days duration. Which is like burning satiation moving to the front chest. Several chest x-ray and rib x-ray showing no acute pathology. Patient also wasn't having some citrus in her life and she was crying yesterday however she was treated with Xanax and IV fluids for she has been dehydrated from loose bowel movement for 2-3 days, patient slept well after 1 dose of Xanax 0.5 mg yesterday afternoon, and she felt better with sleeping and IV fluid with her back pain is completely resolved with no mentioning of weakness in her upper or lower extremity, no more loose bowel movement since yesterday and actually she states she has no bowel movement since then, her nausea and vomiting were completely resolved and she was able to eat, she regained her appetite today. Patient was smiling and happy and thinks she can go home today. Patient denies depression, no sadness, no suicidal or homicidal ideation, no hallucination or delusions. Her energy is back. No chest pain or dyspnea. No coughing and states that her breathing is fine. Her pain in her legs are improved. She states that she has ongoing numbness in her lower extremity for 2-3 weeks and she is not much concern about it. Patient was instructed to follow up with her PCP regarding this and she agrees. On exam her tenderness in the right scapular region is completely resolved. No tenderness anywhere else. And rest of exam was unremarkable. Patient is walking with no difficulty. Vitas looks stable and blood pressure is improved 139/86. She is afebrile and she saturating 98% on room air. Heart rate is 81. Labs showing unremarkable BMP with normal electrolytes and creatinine. Her WBC is improved significantly from 31.5, 18.0, down to 12.1 K today. While patient is not on any antibiotics. Patient is back to her baseline. Patient will be discharged with a new antihypertensive and 2-3 tablets of Xanax as needed Patient was cleared for discharge by both cardiology and oncology teams Problems and management plan were discussed with the patient and he verbalized understanding and acceptance Patient was found stable and can be discharged home however he needs follow-up as an outpatient. Patient was instructed to follow up with PCP within one week and patient agrees. Patient also was instructed to follow up with the security checker and medical administrator in 2 weeks and she agrees. Patient stated she will call and make her own appointment as today is week and patient was instructed to follow up her WBC with her PCP and she is aware of this and she agrees. No need for antibiotics on discharge as a WBC is improving, no signs or symptoms of infection. Gen: patient is a AAOx3, no distress CVS: S1-S2, RRR, no murmur Lungs: B/L CTA, no wheezing Abdomen: soft, no distention, no tenderness, positive bowel sounds Extremity: no leg edema or induration Time spent more than 35 minutes Plan - Discharge Summary Discharge Rx Participant: No New Discharge Prescriptions: No Action Albuterol Inhaler [Ventolin Hfa Inhaler] 1 - 2 puff INHALATION RT-Q6H PRN PRN Reason: Shortness Of Breath traMADol HCL [Ultram] 50 mg PO Q4HR PRN 3 Days #18 tab PRN Reason: Pain Omeprazole 40 mg PO DAILY 30 Days #30 capsule. Umeclidinium [place] [Incruse Ellipta] 1 puff INHALATION RT-DAILY Propranolol HCl [Propranolol HCl ER] 60 mg PO DAILY Discharge Medication List Albuterol Inhaler [Ventolin Hfa Inhaler] 1 - 2 puff INHALATION RT-Q6H PRN 0 12/21/17 [History] traMADol HCL [Ultram] 50 mg PO Q4HR PRN 3 Days #18 tab 12/22/17 [Rx] Omeprazole 40 mg PO DAILY 30 Days #30 capsule. 06/14/18 [Rx] Propranolol HCl [Propranolol HCl ER] 60 mg PO DAILY 05/22/19 [History] Umeclidinium [place] [Incruse Ellipta] 1 puff INHALATION RT-DAILY 05/22/19 [History] Aspirin 325 mg PO DAILY #30 tab 05/26/19 [Rx] Atorvastatin [Lipitor] 10 mg PO DAILY #30 tab 05/26/19 [Rx] Lisinopril [Zestril] 20 mg PO DAILY #30 tab 05/26/19 [Rx] Nitroglycerin Sl Tabs [Nitrostat] 0.4 mg SUBLINGUAL Q5M PRN #20 tab 05/26/19 [Rx] Propranolol LA [Inderal LA] 60 mg PO DAILY cap.sa.24h 05/26/19 [Rx] amLODIPine [Norvasc] 5 mg PO HS #30 tab 05/26/19 [Rx] Follow up Appointment(s)/Referral(s): Richard Feldman MD [Primary Care Provider] - 1-2 days Chandu Edwards MD [STAFF PHYSICIAN] - As Needed (The patient to call to make a follow-up appointment in about 8-9 weeks)
[2019-05-26 12:15] VITALS: BP 149/84; RESP 18
[2019-05-29 19:05] LABS: Arsenic Whole Blood <2 mcg/L (< 23); Mercury Whole Blood <2 mcg/L (< 11)
== END 2019-05-26 13:06 | disposition home or self-care (01) | DRG 552 ==
LOC: EC 12:14 → 1SOBS 16:07 → OBSVTOIN 05-24 14:46
PROVIDERS: ADMIT Family Medicine; ATTEND Family Medicine
DX: M54.6 Pain in thoracic spine (principal); I16.1 Hypertensive emergency; M54.9 Dorsalgia, unspecified; M25.511 Pain in right shoulder; D72.829 Elevated white blood cell count, unspecified; D75.1 Secondary polycythemia; E78.5 Hyperlipidemia, unspecified; E86.0 Dehydration; F17.210 Nicotine dependence, cigarettes, uncomplicated; F32.9 Major depressive disorder, single episode, unspecified; F41.9 Anxiety disorder, unspecified; G40.909 Epilepsy, unspecified, not intractable, without status epilepticus; I10 Essential (primary) hypertension; I25.10 Atherosclerotic heart disease of native coronary artery without angina pectoris; I25.2 Old myocardial infarction; I73.00 Raynaud's syndrome without gangrene; J43.9 Emphysema, unspecified; K21.9 Gastro-esophageal reflux disease without esophagitis; Z79.899 Other long term (current) drug therapy; Z82.49 Family history of ischemic heart disease and other diseases of the circulatory system; Z82.61 Family history of arthritis; Z83.3 Family history of diabetes mellitus; Z85.41 Personal history of malignant neoplasm of cervix uteri; Z90.49 Acquired absence of other specified parts of digestive tract; Z90.710 Acquired absence of both cervix and uterus; R25.2 Cramp and spasm; K57.90 Diverticulosis of intestine, part unspecified, without perforation or abscess without bleeding; Z56.0 Unemployment, unspecified; Z88.0 Allergy status to penicillin; Z88.1 Allergy status to other antibiotic agents; Z91.040 Latex allergy status; Z91.013 Allergy to seafood
CPT/HCPCS: 36415; 70450; 71045; 71275; 74174; 80048; 80053; 80061; 80306; 81003; 82150; 82175; 82570; 82668; 82728; 83540; 83550; 83605; 83655; 83690; 83735; 83825; 84439; 84443; 84484; 85025; 85610; 85652; 85730; 86038; 86140; 86431; 87040; 93005; 93306; 93970; 94640; 96374; 96375; 99285

== ENCOUNTER → 2019-07-26 | Outpatient (CLI) | payer OTHER ==
--- NOTE | 2019-07-26 13:07 | MM ---
Reason for exam: screening (asymptomatic). History: Patient has history of other cancer at age 47. Family history of breast cancer in 2 maternal aunts at age 50. Physical Findings: A clinical breast exam by your physician is recommended on an annual basis and results should be correlated with mammographic findings. MG Screening Mammo w CAD Bilateral CC and MLO view(s) were taken. The breast tissue is heterogeneously dense. This may lower the sensitivity of mammography. Finding: There are grouped/clustered calcifications in the upper outer quadrant, middle position middle of the right breast. ASSESSMENT: Incomplete: need additional imaging evaluation, BI-RAD 0 RECOMMENDATION: Special view mammogram of the right breast. [facility] will attempt to contact patient to return for supplemental views.
== END | disposition home or self-care (01) ==
LOC: RADMAMWWP 08:26
PROVIDERS: ATTEND Family Medicine
DX: Z12.31 Encounter for screening mammogram for malignant neoplasm of breast (principal)
CPT/HCPCS: 77067

== ENCOUNTER → 2019-08-07 | Outpatient (CLI) | payer OTHER ==
--- NOTE | 2019-08-08 08:46 | MM ---
Reason for exam: additional evaluation requested from abnormal screening. Last mammogram was performed less than 1 month ago. History: Patient has history of other cancer at age 47. Family history of breast cancer in 2 maternal aunts at age 50. Physical Findings: Nurse did not find any significant physical abnormalities on exam. MG Work Up Mamm w CAD RT CC with magnification, LM with magnification, and LM view(s) were taken of the right breast. Prior study comparison: July 26, 2019, bilateral MG screening mammo w CAD. The breast tissue is heterogeneously dense. This may lower the sensitivity of mammography. Finding: There are grouped/clustered calcifications in the upper outer quadrant of the right breast. These results were verbally communicated with the patient and result sheet given to the patient on 08/07/19. ASSESSMENT: Suspicious, BI-RAD 4 RECOMMENDATION: Stereotactic core biopsy of the right breast. Called Dr. Feldman's office with mammographic findings and has scheduled an appointment for the patient for 09/06/19 at 9:[address] Espinal. Biopsy scheduled for 09/13/19 at 8:00. PRELIMINARY REPORT CALLED AND FAXED TO DR. ESPINAL ON 08/08/19.
== END | disposition home or self-care (01) ==
LOC: RADMAMWWP 09:59
PROVIDERS: ATTEND Family Medicine
DX: R92.8 Other abnormal and inconclusive findings on diagnostic imaging of breast (principal)
CPT/HCPCS: 77065

== ENCOUNTER → 2019-09-13 | Day surgery (SDC) | payer OTHER ==
[2019-09-13 07:43] VITALS: RESP 16
--- NOTE | 2019-09-13 08:49 | P.OP ---
Date of Procedure: 09/13/19 Preoperative Diagnosis: Microcalcifications of concern right breast upper-outer quadrant Postoperative Diagnosis: Same Procedure(s) Performed: Stereotactic core biopsy right breast upper-outer quadrant Anesthesia: local Surgeon: Meredith Espinal Pathology: other (Breast tissue) Condition: stable Disposition: same day Indications for Procedure: Microcalcifications of concern right breast upper outer quadrant Operative Findings: Microcalcifications of concern seen in the biopsy specimen Description of Procedure: The patient is a 49-year-old white female who presented with radiographic abnormality of group/clustered calcifications in the upper outer quadrant of the right breast. Risk and benefits of stereotactic core biopsy were discussed with the patient as well as alternatives. The patient wished to proceed with the procedure. The patient was taken to the stereotactic core biopsy room and positioned on the low rad table. A lateral to medial approach was utilized. A civil cad designer film was obtained in the area of concern was identified. The breast was prepped using Betadine. The lesion was targeted. 20 mL of 1% lidocaine 10 of which had epinephrine were used to anesthetize the area of concern. A 9-gauge vacuum- assisted core rotated biopsy needle was driven to the correct coordinates. This was fired. Post fire films revealed that the needle was in the correct location. 12 core biopsy samples were obtained. Radiograph of the specimen revealed that the area of concern had been sampled with calcifications in the specimen. A secure jc clip was left in place and documentation of the correct location of the clip was performed. The patient tolerated procedure in stable condition. She will follow-up with Dr. Feldman next week. Specimen is sent for pathologic evaluation.
[2019-09-13 09:20] VITALS: BP 144/87; PULSE 59; TEMP 98.1
--- NOTE | 2019-09-16 09:03 | MM ---
EXAMINATION TYPE: MG stereo VAD BX RT, MG work up mamm w CAD RT DATE OF EXAM: 09/13/2019 COMPARISON: Screening mammogram dated 07/26/2019 and diagnostic mammogram dated 08/07/2019 CLINICAL HISTORY: Right upper outer quadrant 3 mm group of calcifications for which stereotactic guid ed biopsy was recommended. TECHNIQUE: Stereotactic guided core biopsy of right breast. FINDINGS: The procedure of stereotactic guided core biopsy was explained to the patient. Benefits, a lternatives, and risks were discussed. An informed consent was then obtained. Preprocedural timeout was performed. The shortness pathway for biopsy was chosen. Shortness pathway was lateral to medial approach. I chani formed the localization, then surgeon, Dr. Gaston Dietz performed the remainder of the procedure. A va cuum assisted biopsy gun was used to obtain multiple core samples. The patient tolerated the procedure well without any immediate complication. The patient was kept in the radiology department for short stay after the procedure and then discharged home in stable condi tion. Targeted calcifications are identified in specimen mammogram. Post biopsy mammogram shows the clip to appear in satisfactory position relative to the targeted area of concern on the preprocedure images. IMPRESSION: SUCCESSFUL, UNCOMPLICATED STEREOTACTIC GUIDED CORE BIOPSY OF A 3 MM GROUP OF CALCIFICATIONS IN THE UP PER-OUTER QUADRANT OF THE RIGHT BREAST, LIKELY MILK OF CALCIUM, FULL PATHOLOGY RESULTS TO FOLLOW.
== END ==
LOC: RADMAMWWP 07:04
PROVIDERS: ATTEND Surgery
DX: N60.21 Fibroadenosis of right breast (principal); N60.11 Diffuse cystic mastopathy of right breast; N60.81 Other benign mammary dysplasias of right breast; L90.5 Scar conditions and fibrosis of skin
CPT/HCPCS: 88305; 19081; A4648; J2001

== ENCOUNTER → 2019-09-20 | Outpatient (CLI) | payer OTHER ==
[2019-09-20 09:11] VITALS: BP 160/111; PULSE 72; RESP 18; TEMP 97.9
--- NOTE | 2019-09-20 09:44 | P.PN ---
Subjective Progress Note Date: 09/20/19 Principal diagnosis: radial scar at core biopsy site Christine is a 49-year-old white female who is status post stereotactic core biopsy of the right breast on 220 820. Pathology revealed proliferative fibrocystic changes including radial scar/complex sclerosing lesion with s clerosing adenosis/calcifications/columnar cell change/cysts and apocrine metaplasia. The patient has a family history of two maternal aunts who developed breast cancer in their 40s. Christine developed some ecchymosis at the biopsy site and has tenderness at the biopsy site as well. She did not have any fever or chills. Objective - Vital Signs Vital signs: Vital Signs Temp 97.9 F 09/20/19 09:07 Pulse 72 09/20/19 09:07 Resp 18 09/20/19 09:07 BP 160/111 09/20/19 09:07 Pulse Ox 99 09/20/19 09:07 Intake & Output 09/19/19 09/20/19 09/20/19 18:59 06:59 18:59 Weight 50.349 kg - Constitutional General appearance: Present: average body habitus - EENT Eyes: Present: EOMI ENT: Present: hearing grossly normal - Respiratory Respiratory: bilateral: CTA - Cardiovascular Rhythm: regular Heart sounds: normal: S1, S2 - Integumentary Integumentary Comment(s): Dark nevi noted left shoulder, right posterior upper back near the bra line and 3 in the lower back - Musculoskeletal Musculoskeletal: Present: gait normal - Psychiatric Psychiatric: Present: A&O x's 3 - Additional findings Additional findings: Core biopsy site right breast with ecchymosis small hematoma at this site tenderness at the site no evidence of infection Assessment and Plan Assessment: Impression: 1. Core biopsy right breast radial scar/recommended needle localization and excisional biopsy 2. Dark nevi left shoulder and the right posterior upper back recommend excision 3. Additional nevi lower back recommend excision was referred to dermatology 4. Myocardial infarction at 43 5. Unexplained leukocytosis 6. Personal history of cervical cancer 7. Emphysema Plan: 1. Needle localization excisional biopsy of concern in the right breast 2. Excision of nevi that shoulder and upper back 3. Referral for nevi in the lower back 4. Clearance from Dr. Richard Feldman prior to surgical excision of the breast lesion Cc: Dr. Richard Feldman Risk and benefits of the localization and excisional biopsy of the right breast explained to the patient and her . These include but are not limited to bleeding, infection, reaction to the anesthetic. There is always a risk that the clip was migrated and it would not be removed requiring additional seizures. They understand and wish to proceed. Time with Patient: Less than 30
== END ==
LOC: WWCWWP 08:48
PROVIDERS: ATTEND Surgery
DX: Z53.9 Procedure and treatment not carried out, unspecified reason (principal)

== ENCOUNTER → 2019-12-13 | Outpatient (CLI) | payer OTHER ==
[2019-12-13 16:42] VITALS: BP 167/91; PULSE 61; RESP 16; TEMP 98
--- NOTE | 2019-12-13 16:45 | P.PN ---
Subjective Progress Note Date: 12/13/19 Principal diagnosis: radial scar on stero biopsy of the right breast Christine is a 49 year old white female [place] [id number], this revealed microcalcifications of concern in the right breast and she was seen in consultation for Dr. Richard Feldman with respect to this. Concern was noted in the right breast and [place] [address]. There were/clustered calcifications in the upper outer quadrant for which stereotactic core biopsy was recommended. The patient did not feel any new changes in her breasts. She was not complaining of any nipple discharge or skin changes. She was not complaining of pain in her breast. Had no recent history of trauma or infection of the breast. The patient was not taking any hormones, control pills, or hormonal supplements. She underwent a series tactic core biopsy of the right breast and [id number]. Pathology revealed proliferative fibrocystic changes including radial scar/complex sclerosing lesion with sclerosing adenosis/calcification/columnar cell change/cystic apocrine metaplasia. Patient has a family history of 2 maternal aunts who developed breast cancer in her 40s. She tolerated the biopsy with some mild ecchymosis at the biopsy site. She did not have any fever or chills. She was scheduled for needle localization and excisional biopsy of the area of radial scar however this was postponed secondary to the wood virus. Caffeine: 2 cups of coffee per day Nicotine: Lives with his smoker, stopped smoking herself 6 months ago Chocolate: Was a twice a week a square of dark chocolate Family history: maternal aunt: 2 aunts breast cancer in their 40's Hormonal History: menarche: 11 , breast fed: yes, first born at 19 menopause: hysterectomy at 45 for cervical cancer, still has ovaries BCP: 10 years hormones: none Surgical history: 1. Hysterectomy 2. Pleurodesis after spontaneous pneumothorax, she had had 2 chest tubes prior to this 3. Tubal ligation 4. Cholecystectomy 5. Cardiac cath 6. cardiac ablation Medical history: 1. Myocardial infarction at 43 2. Unexplained leukocytosis this is improved at this time but is still being evaluated for 3. nausea 4. numbness bilateral hands and feet 5. fatigue 6. emphysema Social history: Smoke: Stopped 6 months ago he used to smoke 1 /PPD for 20 years alcohol: none drugs: Marijuana brownies for nausea - Constitutional Constitutional: Reports sweats - EENT Eyes: bilateral blurred vision, denies pain Ears: right: decreased hearing, deny: tinnitus Ears, nose, mouth and throat: Denies headache, Denies sore throat - Breasts Breasts: bilateral: as per HPI - Cardiovascular Comment: [place] Cardiovascular: Reports high blood pressure - Respiratory Comment: former smoker/ emphysma Respiratory: Denies cough, Denies 7 - Gastrointestinal Gastrointestinal: Reports constipation, Reports nausea - Genitourinary (Female) Genitourinary: Denies dysuria, Denies hematuria - Menstruation Comment: cervical cancer treated with hysterectomy no radiation or chemotherapy Menstruation: Reports post hysterectomy - Musculoskeletal Comment: arthritis - Integumentary Comment: bottom of feet itching Integumentary: Reports pruritus, Denies rash - Neurological Neurological: Reports numbness - Psychiatric Psychiatric: Reports anxiety - Endocrine Endocrine: Reports fatigue, Reports weight change - Hematologic/Lymphatic Comment: none - Allergic/Immunologic Allergic/Immunologic: Reports seasonal allergies Past Medical History Past Medical History: Coronary Artery Disease (CAD), Cancer, Chest Pain / Angina, GERD/Reflux, Hyperlipidemia, Hypertension, Myocardial Infarction ([place]), Supraventricular Tachycardia (SVT) Additional Past Medical History / Comment(s): Past sinus tach, L spontaneous pneumothorax with surgery,emphysema stage 3, cervical cancer with surgery, u terine fibroids with surgery, ovarian cysts, umbilical and esophageal hernia per pt, Raynaulds syndrome, POTs, no seizure since 2008, gastritis, diverticular disease. Last Myocardial Infarction Date:: DECEMBER 2012 History of Any Multi-Drug Resistant Organisms: None Reported Past Surgical History: Appendectomy, Cardiac Ablation, Section, Cholecystectomy, Heart Catheterization, Hysterectomy, Tubal Ligation Additional Past Surgical History / Comment(s): LT LUNG SURG W/ PLEURODESIS, D/T PNEUMOTHORAX, LEEP, COLPOSCOPY, EGD/COLONOSCOPY. Past Anesthesia/Blood Transfusion Reactions: Postoperative Nausea & Vomiting (PONV) Additional Past Anesthesia/Blood Transfusion Reaction / Comment(s): NEVER HAD BLOOD Past Psychological History: Depression Additional Psychological History / Comment(s): Pt lives with her mother and stays at her boyfriends at times. She drives. She is currently unemployed. Smoking Status: Former smoker Past Alcohol Use History: Occasional Additional Past Alcohol Use History / Comment(s): Pt started smoking as a teen and has quit several times over the years and is currently trying to quit again. She uses to smoke over a ppd but lately has cut down to 5-8 cigarettes a day. Past Drug Use History: None Reported Additional Drug Use History / Comment(s): Pt denies any prior/current drug use. - Past Family History Father Family Medical History: Diabetes Mellitus Additional Family Medical History / Comment(s): FATHER IN [place] Mother Family Medical History: Hyperlipidemia, Hypertension, Osteoarthritis (OA), Rheumatoid Arthritis (RA) Additional Family Medical History / Comment(s): MOTHER IS LIVING AND IS 64YRS OLD. Medications and Allergies Home Medications Medication Instructions Recorded Confirmed Type Albuterol Inhaler [Ventolin Hfa 1 - 2 puff INHALATION RT-Q6H PRN 12/21/17 09/06/19 History Inhaler] traMADol HCL [Ultram] 50 mg PO Q4HR PRN 3 Days #18 tab 12/22/17 09/06/19 Rx Omeprazole 40 mg PO DAILY 30 Days #30 06/14/18 09/06/19 Rx capsule. Umeclidinium [place] [Incruse 1 puff INHALATION RT-DAILY 05/22/19 09/06/19 Hi story Ellipta] Atorvastatin [Lipitor] 10 mg PO DAILY #30 tab 05/26/19 09/06/19 Rx Lisinopril [Zestril] 20 mg PO DAILY #30 tab 05/26/19 09/06/19 Rx Propranolol LA [Inderal LA] 60 mg PO DAILY cap.sa.24h 05/26/19 09/06/19 Rx Flaxseed Oil 1,000 mg PO DAILY 08/28/19 09/06/19 History Allergies Allergy/AdvReac Type Severity Reaction Status Date / Time erythromycin base Allergy Rapid Verified 09/06/19 09:01 Heart Rate heparin Allergy Unknown Verified 09/06/19 09:01 latex Allergy Rash/Hives Verified 09/06/19 09:01 Penicillins Allergy Rash/Hives Verified 09/06/19 09:01 propoxyphene napsylate Allergy Unknown Verified 09/06/19 09:01 [From iSuppli-N] shellfish derived Allergy Swelling Verified 09/06/19 09:01 hydrocodone bitartrate AdvReac Itching Verified 09/06/19 09:01 [From [place]] Objective - Constitutional General appearance: Present: average body habitus - EENT Eyes: Present: EOMI ENT: Present: hearing grossly normal - Neck Neck: Present: normal ROM - Respiratory Respiratory: bilateral: CTA - Cardiovascular Rhythm: regular Heart sounds: normal: S1, S2 - Integumentary Integumentary: Present: normal turgor - Musculoskeletal Musculoskeletal: Present: gait normal - Psychiatric Psychiatric: Present: A&O x's 3, appropriate affect, intact judgment & insight - Additional findings Additional findings: breast exam: BRA 34A inspection: no nipple inversion grade2 ptosis Palpation: Right breast: Multi-positional exam no dominant masses or nodules of concern, fibrocystic changes Right axilla: No adenopathy of concern Left breast: Multi-positional exam no dominant masses or nodules of concern Left axilla: No adenopathy of concern Assessment and Plan Assessment: Impression: 1. radial scar on stero biopsy of the right breast 2. Prior [place] 3. dark Nevus left shoulder and right posterior upper back recommend excision 4. Unexplained leukocytosis 5. Personal history of cervical cancer 6. Emphysema 7. Nevi lower back recommend seeing a travograph operator Plan: 1. Needle localization excisional biopsy of area of concern in the right breast 2. Excision of nevi on the left shoulder and right posterior upper back in the office 3. Referral for nevi in the lower back 5. Medical clearance from Dr. Richard Feldman Risk and benefits of localization excisional biopsy of the right breast explained to the patient. She understands and wishes to proceed. Risks include but are not limited to bleeding, infection, reaction to the anesthetic. There is also risk of clip migration such that we would not remove the spot required additional procedures. She understands and wishes to proceed. CC: Dr. Richard Feldman encounter 20 minutes, > 50% of time in planning and counselling Time with Patient: Less than 30
== END | disposition home or self-care (01) ==
LOC: WWCWWP 16:13
PROVIDERS: ATTEND Surgery
DX: Z53.9 Procedure and treatment not carried out, unspecified reason (principal)

== ENCOUNTER → 2019-12-20 | Outpatient (CLI) | payer OTHER ==
[2019-12-20 11:23] VITALS: BP 138/94; PULSE 71; RESP 18; TEMP 98.5
--- NOTE | 2019-12-20 12:02 | P.PCN ---
Date of Procedure: 12/20/19 Preoperative Diagnosis: 2 nevi of concern right posterior shoulder, left anterior shoulder Postoperative Diagnosis: Same Procedure(s) Performed: Excision of 2 nevi Anesthesia: local Surgeon: Meredith Espinal Pathology: other (Skin lesions of concern) Condition: stable Disposition: same day Indications for Procedure: 2 dark skin lesions of concern Description of Procedure: The patient is a 49-year-old white female with 2 dark nevi one in the right posterior shoulder and one in the left anterior shoulder. It is recommended these be excised. The area of the right posterior shoulder was addressed initially. The area was prepped using Betadine. 5 mL of 1% lidocaine was used to anesthetize the area of concern. Wide excision was performed. The skin was closed using a nylon suture. There was a second nevus in close proximity and this was excised with the first specimen. The area of the left anterior shoulder was then addressed. The area was prepped using Betadine. 1% lidocaine was used to anesthetize the area of concern. Wide excision was performed. Skin was closed using 4-0 nylon suture. Both sites were approximately 1 cm in size. The patient tolerated the procedure in stable condition. Specimens are sent to pathology. Patient will follow up next week. CC: Dr. Richard Feldman
== END | disposition home or self-care (01) ==
LOC: WWCWWP 11:10
PROVIDERS: ATTEND Surgery
DX: D36.7 Benign neoplasm of other specified sites (principal)
CPT/HCPCS: 88305

== ENCOUNTER 2019-12-24 08:58 | Day surgery (SDC) | payer OTHER ==
[2019-12-20 16:21] VITALS: BMI 20.2
[~2019-12-24 08:58] MED LIST changes: -ACETAMINOPHEN IV (For NPO) 1,000 MG in EMPTY BAG 1 BAG IVPB ONE; -BUPIVACAINE (PF) 0.5% 30 ML VIAL SQ ONE; -DEXAMETHASONE SOD PHOSPHATE 10 MG/ML 1 ML VIAL IV ONE; -GLYCOPYRROLATE 0.2 MG/ML 2 ML VIAL ONE; -HYDROmorphone (PF) 1 MG/ML ONE; -INDOCYANINE GREEN 25 MG VIAL IV ONE; -INDOCYANINE GREEN 25 MG VIAL IV STA; -KETOROLAC 30 MG/ML 1 ML VIAL ONE; -LACTATED RINGERS 1,000 ML IV ONE; -LACTATED RINGERS 1,000 ML IV SCH; -LIDOCAINE 1% 20 ML VIAL (10MG/ML) FOR IV START INTRADERMA ONE; -LIDOCAINE 1% INJ 10MG/ML (20 ML MDV) ONE; -MIDAZOLAM 2 MG/2 ML VIAL ONE; -MORPHINE SULFATE 2 MG/ML SYRINGE IV PRN; -NEOSTIGMINE 1 MG/ML 10 ML VIAL ONE; -ONDANSETRON 4 MG/2 ML VIAL IVP ONE; -ONDANSETRON 4 MG/2 ML VIAL IVP PRN; -PROPOFOL 10 MG/ML 20 ML VIAL IV ONE; -ROCURONIUM BROMIDE 10 MG/ML 10 ML VIAL IV ONE; -ceFAZolin IN SWFI 2 GM/20 ML SYRINGE IVP ONE; -fentaNYL (PF) 50 MCG/ML 2 ML AMP ONE; -traMADol 50 MG TAB PO ONE
[2019-12-24] MEDS ORDERED: LACTATED RINGERS 1,000 ML IV ONE (09:35)
[2019-12-24] MEDS ORDERED: LIDOCAINE 1% INJ 10MG/ML (20 ML MDV) SQ ONE ×3 (10:18→12:34)
[2019-12-24 10:31] VITALS: TEMP 98.1
[2019-12-24] MEDS ORDERED: DEXAMETHASONE SOD PHOS (MDV) 100 MG/10 ML VIAL IV ONE (11:01)
[2019-12-24] MEDS ORDERED: ONDANSETRON 4 MG/2 ML VIAL IVP ONE (11:02)
[2019-12-24] MEDS ORDERED: SUCCINYLCHOLINE CHLORIDE 100 MG/5 ML SYR IV ONE (11:27)
[2019-12-24] MEDS ORDERED: PROPOFOL 10 MG/ML 20 ML VIAL IV ONE (11:27)
[2019-12-24] MEDS ORDERED: LIDOCAINE 1% INJ 10MG/ML (20 ML MDV) ONE (11:27)
[2019-12-24] MEDS ORDERED: MIDAZOLAM 2 MG/2 ML VIAL ONE (11:27)
[2019-12-24] MEDS ORDERED: fentaNYL (PF) 50 MCG/ML 2 ML AMP ONE (11:27)
--- NOTE | 2019-12-24 12:37 | P.OP ---
Date of Procedure: 12/24/19 Preoperative Diagnosis: Right breast core biopsy with atypia Postoperative Diagnosis: Same Procedure(s) Performed: Needle localization excisional biopsy right breast via crescent mastopexy Anesthesia: SASHA Surgeon: Meredith Espinal Estimated Blood Loss (ml): 10 IV fluids (ml): 600 Pathology: other (breast tissue) Condition: stable Disposition: same day Indications for Procedure: core Biopsy with atypia Operative Findings: Dense breast tissue Description of Procedure: Following needle localization of area of concern in the right breast the patient was taken to the operating room. The area for incision was marked using a marking pen and the superior aspect of the cresant was approximately 1 cm above the superior aspect of the area. Following induction of anesthesia the patient was prepped and draped in a sterile fashion. An incision was made around the crescent which was de-epithelialized. The breast parenchyma was entered in the superior aspect of the crescent. Dissection was carried down to the anterior breast fascia. This was dissected laterally until the needle was identified. The needle was brought out through the incision. Careful dissection of the breast tissue was performed circumferentially around the needle and the clip and area of concern was excised. Following this the specimen was painted for orientation. Radiograph of the specimen revealed the area of concern was present in the specimen. The tissues were mobilized superiorly and inferiorly. Approximately 30 mL of tissue was mobilized. Titanium clips were placed to jc the area of the resection. The superior and inferior borders of tissue were brought together using a 3-0 Vicryl suture. The mastopexy pressure was performed in the periareolar complex approximately 1 cm superior. The dermal ti ssue was closed using 3-0 Vicryl suture. This is followed by closure of the skin with 4-0 Monocryl. The patient tolerated the procedure in stable condition. All instrument and sponge counts were correct at the end of the case. Radiograph of the specimen revealed the area of concern was present in the specimen.
--- NOTE | 2019-12-24 12:38 | P.DS ---
Providers Attending physician: Meredith Espinal Primary care physician: Richard Feldman Plan - Discharge Summary Discharge Rx Participant: Yes New Discharge Prescriptions: No Action Albuterol Inhaler (Mhu) [Ventolin Hfa Inhaler (Mhu)] 1 - 2 puff INHALATION RT-Q6H PRN PRN Reason: Shortness Of Breath traMADol HCL [Ultram] 50 mg PO Q4HR PRN 3 Days #18 tab PRN Reason: Pain Omeprazole 40 mg PO DAILY 30 Days #30 capsule. Umeclidinium [place] [Incruse Ellipta] 1 puff INHALATION RT-DAILY Propranolol LA [Inderal LA] 60 mg PO DAILY cap.sa.24h Atorvastatin [Lipitor] 10 mg PO DAILY #30 tab Lisinopril [Zestril] 20 mg PO DAILY #30 tab Acetaminophen-Codeine 300-30mg [Tylenol w/codeine #3] 1 - 2 tab PO Q4-6H PRN PRN Reason: Pain Discharge Medication List Albuterol Inhaler (Mhu) [Ventolin Hfa Inhaler (Mhu)] 1 - 2 puff INHALATION RT- Q6H PRN 12/21/17 [History] traMADol HCL [Ultram] 50 mg PO Q4HR PRN 3 Days #18 tab 12/22/17 [Rx] Omeprazole 40 mg PO DAILY 30 Days #30 capsule. 06/14/18 [Rx] Umeclidinium [place] [Incruse Ellipta] 1 puff INHALATION RT-DAILY 05/22/19 [History] Atorvastatin [Lipitor] 10 mg PO DAILY #30 tab 05/26/19 [Rx] Lisinopril [Zestril] 20 mg PO DAILY #30 tab 05/26/19 [Rx] Propranolol LA [Inderal LA] 60 mg PO DAILY cap.sa.24h 05/26/19 [Rx] Acetaminophen-Codeine 300-30mg [Tylenol w/codeine #3] 1 - 2 tab PO Q4-6H PRN 09/20/19 [History] Follow up Appointment(s)/Referral(s): Meredith Espinal MD [STAFF PHYSICIAN] - 1 Week Activity/Diet/Wound Care/Special Instructions: do not drive until seen by Dr. Feldman may shower after 48 hours wear bra at all times Discharge Disposition: HOME SELF-CARE
--- NOTE | 2019-12-24 13:06 | MM ---
EXAMINATION TYPE: MG pre op needle loc RT, MG surgical specimen RT DATE OF EXAM: 12/24/2019 COMPARISON: 09/13/2019 CLINICAL HISTORY: Radial scar/complex sclerosing lesion with clinical request for mammographic guided needle localization TECHNIQUE: Needle localization with wire placement and surgical excision of area of concern in the right breast. FINDINGS: The procedure of needle localization with wire placement and than surgical excision was explained to the patient. Benefits, alternatives, and risks were discussed. An informed consent was then obtained. Preprocedural timeout was performed. The shortest pathway for procedure was chosen. Shortest pathway was lateral to medial approach. The overlying skin was prepped and draped in usual sterile fashion. 10 cc of 1% lidocaine was used as anesthetic into the skin and subcutaneous tissue up to the level of area of concern. A 5 cm needle was used. It was placed via a lateral to medial approach under mammographic guidance. Subsequent 90 degrees mammogram show the needle to be in satisfactory position relative to the targeted area. At this point, wire was placed and the needle was withdrawn. The wire was fixed to patient's skin. Images were marked for surgeon. The patient tolerated the procedure well without any immediate complication. The patient was kept in the radiology department for short stay after the procedure and then taken to surgery for surgical excision. Targeted biopsy marker and wire are identified in specimen mammogram. The patient was kept in hospital for short stay after the procedure and then discharged home in stable condition. IMPRESSION: Successful, uncomplicated needle localization with wire placement and surgical excision of targeted biopsy marker denoting the radial scar in the right breast, full pathology results to follow. Pathology Results: High Risk A. RIGHT BREAST, NEEDLE LOCALIZATION EXCISION: Proliferative fibrocystic changes including cysts, fibrosis, apocrine metaplasia, sclerosing adenosis, and rare microcalcifications. Focal atypical lobular hyperplasia (ALH). Previous biopsy site. B. EPITHELIAL TISSUE: Benign skin. Recommendation Follow up mammogram of the right breast in 6 months. JUANY
[2019-12-24] MEDS: HYDROmorphone 1 MG/ML 1 ML SYRINGE IVP ONE ×2 (13:11→13:16)
[2019-12-24 13:24] VITALS: RESP 18
[2019-12-24] MEDS ORDERED: Acetaminophen-Codeine 300-30mg TAB PO STA (14:08)
[2019-12-24 14:25] VITALS: BP 127/83; PULSE 64
== END 2019-12-24 15:09 | disposition home or self-care (01) ==
LOC: OR 08:58
PROVIDERS: ATTEND Surgery
DX: N60.11 Diffuse cystic mastopathy of right breast (principal); R92.0 Mammographic microcalcification found on diagnostic imaging of breast; N60.91 Unspecified benign mammary dysplasia of right breast; L90.5 Scar conditions and fibrosis of skin; N64.81 Ptosis of breast; D22.62 Melanocytic nevi of left upper limb, including shoulder; D22.5 Melanocytic nevi of trunk; I25.2 Old myocardial infarction; D72.829 Elevated white blood cell count, unspecified; J43.9 Emphysema, unspecified; I25.10 Atherosclerotic heart disease of native coronary artery without angina pectoris; K21.9 Gastro-esophageal reflux disease without esophagitis; E78.5 Hyperlipidemia, unspecified; I10 Essential (primary) hypertension; I47.1 Supraventricular tachycardia; I73.00 Raynaud's syndrome without gangrene; I49.8 Other specified cardiac arrhythmias; K57.90 Diverticulosis of intestine, part unspecified, without perforation or abscess without bleeding; F32.9 Major depressive disorder, single episode, unspecified; Z97.2 Presence of dental prosthetic device (complete) (partial); F17.210 Nicotine dependence, cigarettes, uncomplicated; Z91.040 Latex allergy status; Z88.1 Allergy status to other antibiotic agents; Z88.8 Allergy status to other drugs, medicaments and biological substances; Z88.0 Allergy status to penicillin; Z88.5 Allergy status to narcotic agent; Z91.013 Allergy to seafood; Z80.3 Family history of malignant neoplasm of breast; Z90.710 Acquired absence of both cervix and uterus; Z85.41 Personal history of malignant neoplasm of cervix uteri; Z87.09 Personal history of other diseases of the respiratory system; Z98.51 Tubal ligation status; Z90.49 Acquired absence of other specified parts of digestive tract; Z98.890 Other specified postprocedural states; Z87.42 Personal history of other diseases of the female genital tract; Z87.19 Personal history of other diseases of the digestive system; Z86.69 Personal history of other diseases of the nervous system and sense organs; Z91.89 Other specified personal risk factors, not elsewhere classified; Z79.899 Other long term (current) drug therapy; Z83.3 Family history of diabetes mellitus; Z83.438 Family history of other disorder of lipoprotein metabolism and other lipidemia; Z82.49 Family history of ischemic heart disease and other diseases of the circulatory system; Z82.61 Family history of arthritis
CPT/HCPCS: 19125; 19316; 88305; 88307; 76098; 19281; J2250; J2405; J2001; J3010; J1170; J1100; J0330; J2704

== ENCOUNTER → 2020-01-02 | Outpatient (CLI) | payer OTHER ==
[2020-01-02 16:02] VITALS: BP 169/105; PULSE 69; RESP 18; TEMP 98.2
--- NOTE | 2020-01-02 16:36 | P.PN ---
Progress Note - Text Progress Note Date: 01/02/20 Juanis is a 49 year old white female status post a right breast needle localization excisional biopsy for atypia noted on the core biopsy. Pathology revealed focal atypical lobular hyperplasia. The patient has done well postprocedure with no complaints related to the breast. The patient has been given the option of chemoprevention secondary to the atypia. We have run and the Ana risk evaluation on her and the results are: 5 year risk: 1.8% compared to 1.2% lifetime risk: 16.3% compared to 11.5 At this time she wants to wait to consider chemoprevention. Physical exam: Lungs: Clear Heart: Regular rate and rhythm Incision: Clean and dry There is asymmetry to the breast and the patient is going to consider whether she would like to have a procedure done on the contralateral breast. CC: DR. Richard Feldman
== END | disposition home or self-care (01) ==
LOC: WWCWWP 15:30
PROVIDERS: ATTEND Surgery
DX: Z53.9 Procedure and treatment not carried out, unspecified reason (principal)

== ENCOUNTER → 2020-07-03 | Day surgery (SDC) | payer OTHER ==
[2020-07-01 12:35] VITALS: BMI 20.2
[~2020-07-03] MED LIST changes: +IV FLUID CONTINUATION 900 ML IV ONE; +LACTATED RINGERS 1,000 ML IV ONE; +LACTATED RINGERS 1,000 ML IV SCH; +MIDAZOLAM 2 MG/2 ML VIAL ONE; -Pre Op ABX Message 1 EACH MISC MISCELLANE ONE
[2020-07-03 13:36] VITALS: RESP 16; TEMP 97.2
--- NOTE | 2020-07-03 14:39 | P.PCN ---
Date of Procedure: 07/03/20 Preoperative Diagnosis: Paresthesia in the face and extremities, rule out multiple sclerosis Postoperative Diagnosis: Same as above Procedure(s) Performed: Lumbar puncture Anesthesia: other (Local with lidocaine 1% and IV Versed by the anesthesia Department) Surgeon: Perla Koo Pathology: none sent Condition: stable Disposition: PACU Description of Procedure: Description of the procedure=the patient was brought into the procedure room and placed in the sitting position , monitors applied, the back prepped with chlorhexidine , skin was localized with 1% lidocaine, then 22-gauge quinckie Needle advanced slowly at L4 -5 interlaminar space to get access to the intrathecal space in the right paramedian approach. The needle bevel turned 180 before entering the thecal sac to decrease the risk of postdural puncture headache. Cerebrospinal fluid was clear with no heme. two attempt were needed. No new paresthesia was encountered during this procedure .A total of 6 mL of clear cerebrospinal fluid were collected in 4 different tubes, the needle removed, Band-Aid applied , patient tolerated the procedure well without any complications. Further management as per her neurologist.
[2020-07-03 14:57] LABS: ALT 24 U/L (4-34); AST 33 U/L (14-36)
[2020-07-03 15:13] VITALS: PULSE 76
[2020-07-03 15:14] LABS: T4, Free (Free Thyroxine) 1.32 ng/dL (0.78-2.19)
[2020-07-03 15:31] VITALS: BP 132/86
[2020-07-03 15:59] LABS: Appearance,CSF Clear
[2020-07-03 16:00] LABS: CSF Tube Number 3; Nucleated Cells, CSF 0 u/L (0-5); Red Blood Cell,CSF 1 u/L (0-10)
[2020-07-03 16:35] LABS: Glucose,CSF 62 mg/dL (40-70); Total Protein,CSF 37 mg/dL (12-60)
[2020-07-03 19:22] LABS: Rheumatoid Factor, Qnt 7 IU/mL (0-15)
[2020-07-07 17:33] LABS: Anti-Smith Ab Interp NEGATIVE (NEGATIVE); DNA Double-Stranded Indetermin (NEGATIVE)
== END ==
LOC: ORPAIN 13:19
PROVIDERS: ATTEND Anesthesiology
DX: R20.2 Paresthesia of skin (principal); I25.10 Atherosclerotic heart disease of native coronary artery without angina pectoris; J43.9 Emphysema, unspecified; I10 Essential (primary) hypertension; E78.5 Hyperlipidemia, unspecified; F17.200 Nicotine dependence, unspecified, uncomplicated; I73.00 Raynaud's syndrome without gangrene; Z88.5 Allergy status to narcotic agent; Z91.040 Latex allergy status; Z88.1 Allergy status to other antibiotic agents; Z91.013 Allergy to seafood; Z88.0 Allergy status to penicillin; Z88.8 Allergy status to other drugs, medicaments and biological substances; Z79.899 Other long term (current) drug therapy; Z90.49 Acquired absence of other specified parts of digestive tract; Z90.710 Acquired absence of both cervix and uterus
CPT/HCPCS: 86235 ×3; 84439; 84157; 82945; 84443; 84450; 84460; 86431; 89050; 86618; 86780; 86038; 86225; 62270; J2250; 82040; 82042; 82784; 83873; 83916; 86592; 87801; 88108

== ENCOUNTER → 2020-08-28 | Outpatient (CLI) | payer OTHER ==
--- NOTE | 2020-08-28 14:17 | MM ---
Reason for exam: additional evaluation requested from prior study. Last mammogram was performed 1 year and 1 month ago. History: Patient has history of high-risk lesion on a previous biopsy at age 49 and has history of other cancer at age 47. Family history of breast cancer in 2 maternal aunts at age 50. High risk MG pre op needle loc RT of the right breast, December 24, 2019. High risk MG stereo VAD BX RT of the right breast, September 13, 2019. Took hormonal contraceptives for 4 years beginning at age 20. Physical Findings: Nurse did not find any significant physical abnormalities on exam. MG Diagnostic Mammo RT w CAD CC and MLO view(s) were taken of the right breast. Prior study comparison: August 07, 2019, right breast MG work up mamm w CAD RT. July 26, 2019, bilateral MG screening mammo w CAD. The breast tissue is heterogeneously dense. This may lower the sensitivity of mammography. Post operative changes right breast. No significant new findings when compared with previous films. These results were verbally communicated with the patient and result sheet given to the patient on 08/28/20. ASSESSMENT: Benign, BI-RAD 2 RECOMMENDATION: Follow-up diagnostic mammogram of both breasts in 6 months.
== END | disposition home or self-care (01) ==
LOC: RADMAMWWP 13:03
PROVIDERS: ATTEND Surgery
DX: R92.8 Other abnormal and inconclusive findings on diagnostic imaging of breast (principal)
CPT/HCPCS: 77065

== ENCOUNTER → 2020-09-03 | Outpatient (CLI) | payer OTHER ==
[2020-09-03 09:27] VITALS: BP 173/89; PULSE 65; RESP 18; TEMP 98.2
--- NOTE | 2020-09-03 10:14 | P.PN ---
Subjective Progress Note Date: 09/03/20 Principal diagnosis: atypia right breast on biopsy atypia of the right breat on open biopsy on 12-24-19 Christine is a 49 year old white female who had a routine screening mammogram performed on , this revealed microcalcifications of concern in the right breast and she was seen in consultation for Dr. Richard Feldman with respect to this. Concern was noted in the right breast and [place] [address]. There were/clustered calcifications in the upper outer quadrant for which stereotactic core biopsy was recommended. The patient did not feel any new changes in her breasts. She was not complaining of any nipple discharge or skin changes. She was not complaining of pain in her breast. Had no recent history of trauma or infection of the breast. The patient was not taking any hormones, control pills, or hormonal supplements. She underwent a series tactic core biopsy of the right breast and . Pathology revealed proliferative fibrocystic changes including radial scar/complex sclerosing lesion with sclerosing adenosis/calcification/columnar cell change/cystic apocrine metaplasia. Patient has a family history of 2 maternal aunts who developed breast cancer in her 40s. She tolerated the biopsy with some mild ecchymosis at the biopsy site. She did not have any fever or chills. She was scheduled for needle localization and excisional biopsy of the area of radial scar however this was postponed secondary to the wood virus. She did have a needle localization and excisional biopsy right performed on 12-24-19. The pathology revealed focal atypical lobular hyperplasia. The patient did well after the procedure with no complaints related to the breast. She was given the option of chemoprevention secondary to the atypia. At the time she declined. She has most recently had a right mammogram on . This is felt to be benign BIRADS 2. At this time the patient does not feel any lumps masses or nodules for which she is concerned. She is not complaining of any nipple discharge or skin changes. She still has some sensitivity in the breast throughout, this is more than the left breast. The patient is complaining of asymmetry of the nipple areolar location. This causes psychologic distress for her. Caffeine: 2 cups of coffee per day Nicotine: Lives with his smoker, stopped smoking herself 2 years ago Chocolate: Was a twice a week a square of dark chocolate Family history: maternal aunt: 2 aunts breast cancer in their 40's Hormonal History: menarche: 11 , breast fed: yes, first born at 19 menopause: hysterectomy at 45 for cervical cancer, still has ovaries BCP: 10 years hormones: none Surgical history: 1. Hysterectomy 2. Pleurodesis after spontaneous pneumothorax, she had had 2 chest tubes prior to this 3. Tubal ligation 4. Cholecystectomy 5. Cardiac cath 6. cardiac ablation 7. right bresat biopsy Medical history: 1. Myocardial infarction at 43 2. Unexplained leukocytosis this is improved at this time but is still being evaluated for 3. nausea 4. numbness bilateral hands and feet 5. fatigue 6. emphysema 7. irregular heart beat Social history: Smoke: Stopped 2 years ago he used to smoke 1 /PPD for 20 years alcohol: none drugs: Marijuana brownies for nausea/ has stopped these - Constitutional Constitutional: Reports sweats - EENT Eyes: bilateral blurred vision, denies pain Ears: right: decreased hearing, deny: tinnitus Ears, nose, mouth and throat: Denies headache, Denies sore throat - Breasts Breasts: bilateral: as per HPI, right breast sensitive, not pain - Cardiovascular Comment: [place] Cardiovascular: Reports high blood pressure - Respiratory Comment: former smoker/ emphysma Respiratory: Denies cough - Gastrointestinal Gastrointestinal: Reports constipation, Reports nausea - Genitourinary (Female) Genitourinary: Denies dysuria, Denies hematuria - Menstruation Comment: cervical cancer treated with hysterectomy no radiation or chemotherapy Menstruation: Reports post hysterectomy - Musculoskeletal Comment: arthritis - Integumentary Comment: bottom of feet itching Integumentary: Reports pruritus, Denies rash - Neurological Neurological: Reports numbness - Psychiatric Psychiatric: Reports anxiety - Endocrine Endocrine: Reports fatigue, Reports weight change - Hematologic/Lymphatic Comment: none - Allergic/Immunologic Allergic/Immunologic: Reports seasonal allergies Objective - Vital Signs Vital signs: Vital Signs Temp 98.2 F 09/03/20 09:23 Pulse 65 09/03/20 09:23 Resp 18 09/03/20 09:23 BP 173/89 09/03/20 09:23 Pulse Ox 100 09/03/20 09:23 Intake & Output 09/02/20 09/03/20 09/03/20 18:59 06:59 18:59 Weight 54.431 kg - Exam BMI 20.0 - Constitutional General appearance: Present: average body habitus - EENT Eyes: Present: EOMI ENT: Present: hearing grossly normal - Neck Neck: Present: normal ROM - Respiratory Respiratory: bilateral: CTA - Cardiovascular Rhythm: regular Heart sounds: normal: S1, S2 - Gastrointestinal General gastrointestinal: Present: normal bowel sounds, soft - Integumentary Integumentary: Present: normal turgor - Musculoskeletal Musculoskeletal: Present: gait normal - Psychiatric Psychiatric: Present: A&O x's 3, appropriate affect, intact judgment & insight - Additional findings Additional findings: Breast: BRA 34B inspection: Asymmetry of the breast with the right breast smaller than the left breast, nipple areolar complex is higher on the right than the left by approximately 1 1/2 cm Palpation: right breast: Multiple positional exam fibrocystic changes and no dominant masses or nodules of concern Right axilla: No adenopathy of concern Left breast: Multi-positional exam fibrocystic changes no dominant masses or nodules of concern Left axilla: No adenopathy of concern Assessment and Plan Assessment: Impression: 1.Myocardial infarction at 43 2. Unexplained leukocytosis this is improved at this time but is still being evaluated for 3. nausea 4. numbness bilateral hands and feet 5. fatigue 6. emphysema 7. irregular heart beat 8. Recent right breast mammogram benign BIRADS 2 9. Fibrocystic breast changes 10. 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 Asymmetry of the nipple areolar complexes causing psychologic distress with the patient Plan: 1. Patient is due for her left breast mammogram at this time if this is benign would recommend bilateral mammogram in 1 year; will follow up after mammogram 2. Patient would like to have a mastopexy on the left secondary to the asymmetric location of the nipple areolar complex The reason for the asymmetry is secondary to needle localization and excisional biopsy of lesion on the right breast secondary to radial scar noted on stereo biopsy of right breast, this procedure was not done for cosmetic reasons. The patient subsequently has asymmetric location of the nipple areolar complex and this causes psychologic distress for her. After discussion she wishes to have a mastopexy on the left side. She understands that the breast will not be completely symmetric the patient will be more symmetric than they are at this time. She is given the option of seeing a plastic surgeon and declined. CC: Dr. Richard Feldman encounter 25 minutes, time reviewing medical records, physical examination, and counseling.
== END | disposition home or self-care (01) ==
LOC: WWCWWP 09:15
PROVIDERS: ATTEND Surgery
DX: Z53.9 Procedure and treatment not carried out, unspecified reason (principal)

== ENCOUNTER → 2020-09-04 | Outpatient (CLI) | payer OTHER ==
[2020-09-04 09:26] VITALS: BP 171/115; PULSE 59; RESP 18; TEMP 98.1
--- NOTE | 2020-09-04 09:54 | P.PN ---
Progress Note - Text Progress Note Date: 09/04/20 Christine was seen yesterday and was due for a left breast mammogram. On the left breast mammogram a questionable nodule was seen approximately 5 cm from the nipple. This was reviewed with radiology and it is felt that this is most likely benign. However because the patient is considering a mastopexy further workup was recommended. The workup would include an ultrasound at this time of the left breast from the 12 to 6 o'clock position 3:00. If this is negative a 3-D mammogram with attention to this area is suggested. Alternatively the option of a six-month follow-up was discussed however at this time she would like to have the workup performed.
--- NOTE | 2020-09-04 09:56 | MM ---
Reason for exam: additional evaluation requested from abnormal screening. Last mammogram was performed less than 1 month ago. History: Patient has history of endometrial cancer at age 50 and has history of high-risk lesion on a previous biopsy at age 49. Family history of breast cancer in 2 maternal aunts at age 50. High risk MG pre op needle loc RT of the right breast, December 24, 2019. High risk MG stereo VAD BX RT of the right breast, September 13, 2019. Took hormonal contraceptives for 4 years beginning at age 20. Physical Findings: Nurse did not find any significant physical abnormalities on exam. MG Diagnostic Mammo LT w CAD CC and MLO view(s) were taken of the left breast. Prior study comparison: August 28, 2020, right breast MG diagnostic mammo RT w CAD. August 07, 2019, right breast MG work up mamm w CAD RT. The breast tissue is heterogeneously dense. This may lower the sensitivity of mammography. Finding: There is a typically benign 4 mm round mass located 5 cm from the nipple in the outer quadrant, posterior position of the left breast. New finding since August 07, 2019. These results were verbally communicated with the patient and result sheet given to the patient on 09/04/20. ASSESSMENT: Probably benign, BI-RAD 3 RECOMMENDATION: Follow-up diagnostic mammogram of both breasts in 6 months.
--- NOTE | 2020-09-04 11:23 | USB ---
Reason for exam: clinical finding. History: Patient has history of endometrial cancer at age 50 and has history of high-risk lesion on a previous biopsy at age 49. Family history of breast cancer in 2 maternal aunts at age 50. High risk MG pre op needle loc RT of the right breast, December 24, 2019. High risk MG stereo VAD BX RT of the right breast, September 13, 2019. Took hormonal contraceptives for 4 years beginning at age 20. US Breast Limited LT Left limited breast ultrasound including focal area of concern, retroareolar and axilla demonstrates a 3 x 2 x 2mm oval, cystic lesion too small to characterize at 2 o'clock. These results were verbally communicated with the patient and result sheet given to the patient on 09/04/20. ASSESSMENT: Probably benign, BI-RAD 3 RECOMMENDATION: Follow-up diagnostic mammogram of both breasts in 6 months.
== END | disposition home or self-care (01) ==
LOC: RADMAMWWP 08:01
PROVIDERS: ATTEND Surgery
DX: R92.8 Other abnormal and inconclusive findings on diagnostic imaging of breast (principal)
CPT/HCPCS: 77065

== ENCOUNTER → 2020-09-16 | Outpatient (CLI) | payer OTHER | END | disposition home or self-care (01) | LOC: LABWHC1 08:27 | PROVIDERS: ATTEND Psychiatry & Neurology Neurology | DX: G62.9 Polyneuropathy, unspecified (principal); Z79.899 Other long term (current) drug therapy | CPT/HCPCS: 36415; 82607; 82947 ==

== ENCOUNTER → 2020-10-01 | Outpatient (CLI) | payer OTHER | END | disposition home or self-care (01) | LOC: RADECHMAIN 12:27 | PROVIDERS: ATTEND Family Medicine | DX: R00.2 Palpitations (principal) | CPT/HCPCS: 93270 ==

== ENCOUNTER → 2020-12-17 | Outpatient (CLI) | payer OTHER ==
--- NOTE | 2020-12-17 19:04 | XR ---
EXAMINATION TYPE: XR chest 2V DATE OF EXAM: 12/17/2020 COMPARISON: Chest x-ray 05/24/2019, CT 05/22/2019 HISTORY: COPD and shortness of breath TECHNIQUE: Frontal and lateral views of the chest are obtained. FINDINGS: There is no focal air space opacity, pleural effusion, or pneumothorax seen. The cardiac silhouette size is within normal limits. There are prominent lung volumes with flattening the hemid iaphragms. Postop changes are noted in the right breast. Aorta is dense. The osseous structures are i ntact. IMPRESSION: No acute cardiopulmonary process. There is underlying emphysema.
== END | disposition home or self-care (01) ==
LOC: RADXRMAIN 17:27
PROVIDERS: ATTEND Nurse Practitioner
DX: J44.9 Chronic obstructive pulmonary disease, unspecified (principal)
CPT/HCPCS: 71046

== ENCOUNTER → 2020-12-17 | Outpatient (CLI) | payer OTHER ==
[2020-12-17 14:49] VITALS: BP 172/102; PULSE 74; RESP 18; TEMP 97.9
--- NOTE | 2020-12-17 15:09 | P.PN ---
Subjective Progress Note Date: 12/17/20 Principal diagnosis: atypia on biopsy of the right breast atypia right breast on biopsy atypia of the right breast on open biopsy on 12-24-19 Christine is a 49 year old white female [place] [address], this revealed microcalcifications of concern in the right breast and she was seen in consultation for Dr. Richard Feldman with respect to this. Concern was noted in the right breast and [place] [address]. There were/clustered calcifications in the upper outer quadrant for which stereotactic core biopsy was recommended. The patient did not feel any new changes in her breasts. She was not complaining of any nipple discharge or skin changes. She was not complaining of pain in her breast. Had no recent history of trauma or infection of the breast. The patient was not taking any hormones, control pills, or hormonal supplements. She underwent a sterotactic core biopsy of the right breast and . Pathology revealed proliferative fibrocystic changes including radial scar/complex sclerosing lesion with sclerosing adenosis/calcification/columnar cell change/cystic apocrine metaplasia. Patient has a family history of 2 maternal aunts who developed breast cancer in her 40s. She tolerated the biopsy with some mild ecchymosis at the biopsy site. She did not have any fever or chills. She was scheduled for needle localization and excisional biopsy of the area of radial scar however this was postponed secondary to the wood virus. She did have a needle localization and excisional biopsy right performed on 12-24-19. The pathology revealed focal atypical lobular hyperplasia. The patient did well after the procedure with no complaints related to the breast. She was given the option of chemoprevention secondary to the atypia. At the time she declined. She has most recently had a right mammogram on . This is felt to be benign BIRADS 2. The patient had a left breast mammogram performed and this was felt to be probably benign BIRADS 3 and repeat left breast mammogram in 6 months was recommended. On the same date a left breast ultrasound was also performed. This revealed a 3 x 2 x 2 mm cystic lesion too small to characterize at the 2 o'clock position. At this time the patient does not feel any lumps masses or nodules for which she is concerned. She is not complaining of any nipple discharge or skin changes. She still has some sensitivity in the breast throughout, this is more than the left breast. The patient is complaining of asymmetry of the nipple areolar location. This causes psychologic distress for her. Caffeine: 2 cups of coffee per day Nicotine: Lives with his smoker, stopped smoking herself 2 years ago Chocolate: Was a twice a week a square of dark chocolate Family history: maternal aunt: 2 aunts breast cancer in their 40's Hormonal History: menarche: 11 , breast fed: yes, first born at 19 menopause: hysterectomy at 45 for cervical cancer, still has ovaries BCP: 10 years hormones: none Surgical history: 1. Hysterectomy 2. Pleurodesis after spontaneous pneumothorax, she had had 2 chest tubes prior to this 3. Tubal ligation 4. Cholecystectomy 5. Cardiac cath 6. cardiac ablation 7. right bresat biopsy Medical history: 1. Myocardial infarction at 43 2. Unexplained leukocytosis this is improved at this time but is still being evaluated for 3. nausea 4. numbness bilateral hands and feet 5. fatigue 6. emphysema 7. irregular heart beat Social history: Smoke: Stopped 2 years ago he used to smoke 1 /PPD for 20 years alcohol: none drugs: Marijuana brownies for nausea/ has stopped these - Constitutional Constitutional: Reports sweats - EENT Eyes: bilateral blurred vision, denies pain Ears: right: decreased hearing, deny: tinnitus Ears, nose, mouth and throat: Denies headache, Denies sore throat - Breasts Breasts: bilateral: as per HPI, right breast sensitive, not pain - Cardiovascular Comment: [place] Cardiovascular: Reports high blood pressure - Respiratory Comment: former smoker/ emphysma Respiratory: Denies cough - Gastrointestinal Gastrointestinal: Reports constipation, Reports nausea - Genitourinary (Female) Genitourinary: Denies dysuria, Denies hematuria - Menstruation Comment: cervical cancer treated with hysterectomy no radiation or chemotherapy Menstruation: Reports post hysterectomy - Musculoskeletal Comment: arthritis - Integumentary Comment: bottom of feet itching Integumentary: Reports pruritus, Denies rash - Neurological Neurological: Reports numbness - Psychiatric Psychiatric: Reports anxiety - Endocrine Endocrine: Reports fatigue, Reports weight change - Hematologic/Lymphatic Comment: none - Allergic/Immunologic Allergic/Immunologic: Reports seasonal allergies Objective - Vital Signs Vital signs: Vital Signs Temp 97.9 F 12/17/20 14:44 Pulse 74 06/03/21 14:44 Resp 18 12/17/20 14:44 BP 172/102 12/17/20 14:44 Pulse Ox 98 12/17/20 14:44 Intake & Output 12/16/20 12/17/20 12/17/20 18:59 06:59 18:59 Weight 56.245 kg - Exam BMI 20.6 - Constitutional General appearance: Present: cooperative - EENT Eyes: Present: EOMI ENT: Present: hearing grossly normal - Neck Neck: Present: normal ROM - Respiratory Respiratory: bilateral: CTA - Cardiovascular Rhythm: regular Heart sounds: normal: S1, S2 - Integumentary Integumentary: Present: normal turgor - Musculoskeletal Musculoskeletal: Present: gait normal - Psychiatric Psychiatric: Present: A&O x's 3, appropriate affect, intact judgment & insight - Additional findings Additional findings: Breast exam: BRA: 34A inspection: Right nipple areolar complex higher than left nipple or nipple areolar complex to approximately 2 cm Patient: Right breast: Multiple positional exam fibrocystic changes, no dominant masses or nodules of concern Right axilla: No adenopathy of concern Left breast: Multi-positional exam fibrocystic changes, no dominant masses or nodules of concern Left axilla: No adenopathy of concern Assessment and Plan Assessment: Impression: 1. Myocardial infarction at 43 2. Unexplained leukocytosis 3. Nausea 4. Numbness bilateral hands and feet 5. Fatigue 6. Emphysema 7. Irregular heartbeat 8. Recent right recent bilateral mammograms left breast benign BIRADS 3 repeat in 6 months 9. Fibrocystic breast changes 10. Atypia noted on open biopsy of the right breast patient given option of chemoprevention which she declined 11. Asymmetry of the nipple areolar complexes causing psychologic distress for the patient Plan: 1. Left breast mastopexy 2. Medical clearance from primary care doctor Risks and benefits of the procedure were discussed with the patient. She is given the option of seeing a plastic surgeon. Risks include but are not limited to bleeding, infection, reaction to the anesthetic. She also understands that the breast will not be completely symmetric however she wishes to proceed. Cc: Dr. Richard Feldman
== END ==
LOC: WWCWWP 14:15
PROVIDERS: ATTEND Surgery
DX: N60.81 Other benign mammary dysplasias of right breast (principal); N60.11 Diffuse cystic mastopathy of right breast; N60.12 Diffuse cystic mastopathy of left breast; N64.89 Other specified disorders of breast; I25.2 Old myocardial infarction; J43.9 Emphysema, unspecified; I21.9 Acute myocardial infarction, unspecified; I49.9 Cardiac arrhythmia, unspecified; R20.0 Anesthesia of skin; D72.829 Elevated white blood cell count, unspecified; R11.0 Nausea; R53.83 Other fatigue; Z88.0 Allergy status to penicillin; Z88.1 Allergy status to other antibiotic agents; Z91.040 Latex allergy status; Z88.8 Allergy status to other drugs, medicaments and biological substances; Z87.891 Personal history of nicotine dependence; Z91.013 Allergy to seafood; Z88.5 Allergy status to narcotic agent

== ENCOUNTER → 2021-03-05 | Outpatient (CLI) | payer OTHER | END | disposition home or self-care (01) | LOC: LABWHC1 08:37 | PROVIDERS: ATTEND Nurse Practitioner Adult Health | DX: I10 Essential (primary) hypertension (principal) | CPT/HCPCS: 36415; 82533; 83835 ==

== ENCOUNTER 2021-04-14 15:24 | Emergency (ER) | payer OTHER ==
[2021-04-14] MEDS ORDERED: IBUPROFEN 400 MG TAB PO STA (18:36)
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
[2021-04-14] MEDS ORDERED: BACITRACIN OINT 1 EACH PACKET TOPICAL ONE (19:27)
--- NOTE | 2021-04-14 19:27 | XR ---
EXAMINATION TYPE: XR forearm LT DATE OF EXAM: 04/14/2021 COMPARISON: NONE HISTORY: Cat bite TECHNIQUE: 2 views FINDINGS: Radius and ulna appear intact. I see no fracture nor dislocation. There is no evidence of f oreign body. Detail is limited by clothing over the proximal forearm. IMPRESSION: No fracture seen. No definite sign of a foreign body.
[2021-04-14 19:49] VITALS: BP 184/81; PULSE 64; RESP 16; TEMP 97.2
== END 2021-04-14 19:49 | disposition home or self-care (01) ==
LOC: EC 15:24
DX: S51.852A Open bite of left forearm, initial encounter (principal); I10 Essential (primary) hypertension; I25.2 Old myocardial infarction; I25.10 Atherosclerotic heart disease of native coronary artery without angina pectoris; K21.9 Gastro-esophageal reflux disease without esophagitis; E78.5 Hyperlipidemia, unspecified; F41.9 Anxiety disorder, unspecified; F32.9 Major depressive disorder, single episode, unspecified; Z91.040 Latex allergy status; Z88.0 Allergy status to penicillin; Z88.1 Allergy status to other antibiotic agents; Z90.49 Acquired absence of other specified parts of digestive tract; Z90.710 Acquired absence of both cervix and uterus; Z98.51 Tubal ligation status; Z87.891 Personal history of nicotine dependence; W55.01XA Bitten by cat, initial encounter
CPT/HCPCS: 99283

== ENCOUNTER 2024-04-05 21:06 | Observation (INO) | payer OTHER ==
--- NOTE | 2024-04-05 21:35 | ED ---
General Adult HPI - General Chief complaint: Chest Pain Stated complaint: Chest Pain Time Seen by Provider: 04/05/24 21:11 Source: patient, EMS Mode of arrival: EMS Limitations: no limitations - History of Present Illness Initial comments: 54-year-old female presenting today for chest pain and shortness of breath. This morning upon waking. She walked to bathroom and after about 6 steps became short of breath, lightheaded and began experiencing chest pain. Throughout the day today every time she tried to ambulate she became short of breath and expe rience chest pain. She also noticed that her blood pressure continued to climb throughout the day. Describes pain as sharp and between shoulder blades radiating to her neck and towards the front of her chest. Denies any chest pain. Does have a history of ACS and prior cardiac stents as well as emphysema. Sees Dr. Lynn. Last stress test was "a few years ago". Has not taken her evening dose of lisinopril. Endorses mild cough without sputum or hemoptysis. No recent travel surgeries or hospitalizations. No lower extremity swelling. No history of prior PE. Was a pipe past smoker however not currently. - Related Data Home Medications Medication Instructions Recorded Confirmed Albuterol Sulfate [Proair Hfa] 1 - 2 puff INHALATION RT-Q6H PRN 12/17/20 04/06/24 Aspirin EC [Ecotrin Low Dose] 81 mg PO DAILY 04/06/24 04/06/24 Cyclobenzaprine [Flexeril] 10 mg PO BID@0900,1400 04/06/24 04/06/24 Ergocalciferol [Vitamin D2 (1250 1,250 mcg PO FR 04/06/24 04/06/24 Mcg = 58720 Iu)] Omeprazole 20 mg PO DAILY 04/06/24 04/06/24 traMADol HCL 50 mg PO BID@0900,1400 04/06/24 04/06/24 Previous Rx's Medication Instructions Recorded Propranolol LA [Inderal LA] 60 mg PO DAILY cap.sa.24h 05/26/19 amLODIPine [Norvasc] 10 mg PO DAILY #30 tab 04/07/24 lisinopriL [Zestril] 20 mg PO BID #60 tab 04/07/24 Allergies Allergy/AdvReac Type Severity Reaction Status Date / Time erythromycin base Allergy Rapid Verified 04/06/24 10:48 Heart Rate heparin Allergy Unknown Verified 04/06/24 10:48 latex Allergy Rash/Hives Verified 04/06/24 10:48 Penicillins Allergy Rash/Hives Verified 04/06/24 10:48 propoxyphene napsylate Allergy Unknown Verified 04/06/24 10:48 [From [facility]] shellfish derived Allergy Swelling Verified 04/06/24 10:48 Review of Systems ROS Statement: Those systems with pertinent positive or pertinent negative responses have been documented in the HPI. ROS Other: All systems not noted in ROS Statement are negative. Past Medical History Past Medical History: Coronary Artery Disease (CAD), Cancer, Chest Pain / Angina, GERD/Reflux, Hyperlipidemia, Hypertension, Myocardial Infarction (NE), Seizure Disorder, Supraventricular Tachycardia (SVT) Additional Past Medical History / Comment(s): Past sinus tach, L spontaneous pneumothorax w/ surgery,Emphysema stage 3, cervical cancer w/ surgery, uterine fibroids w/ surgery, ovarian cysts, umbilical & esophageal hernia, diverticular disease per pt, Raynaulds syndrome, POTs, no seizure since 2008, migraines, poss autoimmune disease - c/o weak muscles, muscle spasms, eyelids drooping, optic neuritis Last Myocardial Infarction Date:: DECEMBER 2012 History of Any Multi-Drug Resistant Organisms: None Reported Past Surgical History: Appendectomy, Cardiac Ablation, Section, Cholecystectomy, Heart Catheterization, Hysterectomy, Tubal Ligation Additional Past Surgical History / Comment(s): LT LUNG SURG W/ PLEURODESIS, D/T PNEUMOTHORAX, LEEP, COLPOSCOPY, EGD/COLONOSCOPY. EXCISION OF LESIONS ON CHESTS AND BACK Past Anesthesia/Blood Transfusion Reactions: Postoperative Nausea & Vomiting (PONV) Additional Past Anesthesia/Blood Transfusion Reaction / Comment(s): NEVER HAD BLOOD TRANSFUSIONS Past Psychological History: Anxiety, Depression Smoking Status: Former smoker Past Alcohol Use History: None Reported Past Drug Use History: None Reported, Marijuana - Past Family History Father Family Medical History: Diabetes Mellitus Additional Family Medical History / Comment(s): FATHER IN [place] Mother Family Medical History: Hyperlipidemia, Hypertension, Osteoarthritis (OA), Rheumatoid Arthritis (RA) Additional Family Medical History / Comment(s): MOTHER IS LIVING AND IS 64YRS OLD. General Exam - General Exam Comments Initial Comments: PE: CONSTITUTIONAL: [no apparent distress, chronically ill-appearing but nontoxic SKIN: Warm, dry, no jaundice, hives or petechiae EYES: Pupils are equally round, extraocular movements intact without nystagmus, clear conjunctiva, non-icteric sclera HENT: Normocephalic, atraumatic, moist mucus membranes, oropharynx clear without exudates NECK: , Full range of motion, normal appearance PULMONARY: Scant wheezes noted throughout upper and mid lung ruth, no rhonchi, or rales, normal excursion, no accessory muscle use and no stridor CARDIOVASCUSAR: Regular rate, rhythm, normal S1 and S2. No appreciated murmurs, rubs or gallops. Strong radial pulses with intact distal perfusion. No lower extremity edema GASTROINTESTINAL: Soft, non-tender, non-distended, no palpable masses, no rebound or guarding. No hepatosplenomegaly MUSCULOSKELETAL: Extremities have no gross deformity, no edema, redness, or swelling. No calf swelling NEUROLOGIC:_a/o x 3, GCS 15, normal mentation and speech. Moves all extremities x 4 without motor or sensory deficit PSYCHIATRIC:_normal mood and affect, thought process is clear and linear Limitations: no limitations Course Vital Signs 04/05/24 04/05/24 04/05/24 21:08 21:39 22:42 Temperature 98.6 F Pulse Rate 73 66 74 Respiratory 20 20 Rate Blood Pressure 187/109 189/96 O2 Sat by Pulse 96 95 Oximetry 04/05/24 04/05/24 04/05/24 22:52 23:15 23:42 Temperature Pulse Rate 78 70 89 Respiratory 18 18 Rate Blood Pressure 175/92 176/85 O2 Sat by Pulse 96 95 Oximetry 04/06/24 04/06/24 01:00 01:20 Temperature 98.5 F Pulse Rate 88 86 Respiratory 18 18 Rate Blood Pressure 176/96 162/86 O2 Sat by Pulse 97 97 Oximetry EKG Findings - EKG Comments: EKG Findings:: Sinus rhythm, rate 67 bpm, HI interval 160 ms, QT/QTc 383/398 ms, normal axis, no ST elevations or depressions, no arrhythmia compared to EKG performed on 05/22/2019, no new ST elevations or depressions compared to prior Medical Decision Making - Medical Decision Making Was pt. sent in by a medical professional or institution (, PA, DIRECTOR OF NATIONAL SALES, urgent care, hospital, or custodial...) When possible be specific @ -No Did you speak to anyone other than the patient for history (EMS, parent, family, police, friend...)? What history was obtained from this source @ -No Did you review nursing and triage notes (agree or disagree)? Why? @ -I reviewed and agree with nursing and triage notes- reviewed triage note states patient presents for chest pain and shortness of breath with ambulation started today worsening throughout the day, substernal chest pain that radiates to shoulder blades neck, pain only present with ambulating, took 324 mg aspirin prior to arrival, EMS gave breathing treatment reported symptom relief with breathing treatment extensive cardiac history Were old charts reviewed (outside hosp., previous admission, EMS record, old EKG, old radiological studies, urgent care reports/EKG's, custodial records)? Report findings @ -No old charts were reviewed-no recent visits since 2020, did review prior EKG and compared to current Differential Diagnosis (chest pain, altered mental status, abdominal pain women, abdominal pain men, vaginal bleeding, weakness, fever, dyspnea, syncope, headache, dizziness, GI bleed, back pain, seizure, CVA, palpatations, mental health, musculoskeletal)? @ -Differential Chest Pain: Stable Angina, Unstable Angina, STEMI, NSTEMI Aortic Dissection, pericarditis, pleurisy, chostochondirits, Pneumothorax, Musculoskeletal, Esophageal Spasm GERD, Cholecystitis, Pancreatitis, Zoster, this is not meant to be an all-inclusive list. Differential Dyspnea: Coronary syndrome, arrhythmia, tamponade, asthma, COPD, pulmonary embolism, pneumonia, pneumothorax, pulmonary effusion, anaphylaxis, diabetic ketoacidosis, flailed chest, pulmonary contusion, diaphragmatic rupture, anemia, neuromuscular, this is not meant to be an all-inclusive list. EKG interpreted by me (3pts min.). @ -As above X-rays interpreted by me (1pt min.). @ -Diaphragmatic flattening, no pneumothorax, no consolidations, no cardiomegaly CT interpreted by me (1pt min.). @ -None done U/S interpreted by me (1pt. min.). @ -None done What testing was considered but not performed or refused? (CT, X-rays, U/S, labs)? Why? @ -None What meds were considered but not given or refused? Why? @ -None Did you discuss the management of the patient with other professionals (professionals i.e. , PA, DIRECTOR OF NATIONAL SALES, lab, RT, psych nurse, social science research assistant, substation operator apprentice, teacher, supervisor dog license officer, case planner)? Give summary @ -No Was smoking cessation discussed for >3mins.? @ -No Was critical care preformed (if so, how long)? @ -No Were there social determinants of health that impacted care today? How? (Homelessness, low income, unemployed, alcoholism, drug addiction, transp ortation, low edu. Level, literacy, decrease access to med. care, long term, rehab)? @ -No Was there de-escalation of care discussed even if they declined (Discuss DNR or withdrawal of care, Hospice)? @ -No What co-morbidities impacted this encounter? (DM, HTN, Smoking, COPD, CAD, Cancer, CVA, ARF, Chemo, Hep., AIDS, mental health diagnosis, sleep apnea, morbid obesity)? @ -Emphysema, prior smoker, ACS/CAD Was patient admitted / discharged? Hospital course, mention meds given and route, prescriptions, significant lab abnormalities, going to OR and other pertinent info. @ -Admissionpatient is a pleasant 54-year-old female past medical history prior NE, emphysema presenting for exertional shortness of breath and chest pain. No chest pain currently. Patient hypertensive on arrival. Suspect 2/2 uncontrolled hypertension but potentially pain as well, as patient due for nighttime dose of pain medication and requesting home flexeril. WOrdered patient's home dose of lisinopril due to hypertension, patient received aspirin prior to arrival, did order additional nebulizer treatment, steroids, out of concern that COPD exacerbation may be exacerbating patient's symptoms however symptoms are most concerening for stable angina. ACS/chest pain workup including D-dimer ordered. Patient is agreeable plan of care. Labs and imaging reviewed. Grossly within normal limits. Abnormal values not concerning for acute pathology related to presenting complaint. Initial troponin within normal limits. Patient remained hypertensive,despite treatment with home pain meds and lisinopril. Labetalol was considered and ordere due to hypertension however when reassessed, repeat blood pressure 175/92 and requested RN hold labetolol unless systolic greater than 180. Resting comfortably. Will admit for concern for stable angina. Patient is agreeable plan of care. Spoke with PITO Ricardo who kindly except patient for admission. Undiagnosed new problem with uncertain prognosis? @ -No Drug Therapy requiring intensive monitoring for toxicity (Heparin, Nitro, Insulin, Cardizem)? @ -No Were any procedures done? @ -No Diagnosis/symptom? @Stable angina, COPD exacerbation Acute, or Chronic, or Acute on Chronic? @ -Acute Uncomplicated (without systemic symptoms) or Complicated (systemic symptoms)? @ -Complicated Side effects of treatment? @ -No Exacerbation, Progression, or Severe Exacerbation? @ -No Poses a threat to life or bodily function? How? (Chest pain, USA, NE, pneumonia, PE, COPD, DKA, ARF, appy, cholecystitis, CVA, Diverticulitis, Homicidal, Suicidal, threat to staff... and all critical care pts) @ -Yes - Lab Data Result diagrams: 04/05/24 21:36 04/05/24 21:36 Lab Results 04/05/24 04/05/24 04/05/24 Range/Units 21:36 21:36 21:36 WBC 8.4 (3.8-10.6) k/uL RBC 4.40 (3.80-5.40) m/uL Hgb 14.2 (11.4-16.0) gm/dL Hct 41.7 (34.0-46.0) % MCV 94.6 (80.0-100.0) fL MCH 32.2 (25.0-35.0) pg MCHC 34.0 (31.0-37.0) g/dL RDW 11.7 (11.5-15.5) % Plt Count 286 (150-450) k/uL MPV 7.6 Neutrophils % 58 % Lymphocytes % 29 % Monocytes % 7 % Eosinophils % 3 % Basophils % 1 % Neutrophils # 4.8 (1.3-7.7) k/uL Lymphocytes # 2.4 (1.0-4.8) k/uL Monocytes # 0.6 (0-1.0) k/uL Eosinophils # 0.3 (0-0.7) k/uL Basophils # 0.1 (0-0.2) k/uL PT 10.0 (10.0-12.5) sec INR 0.9 (<1.2) APTT 26.5 (22.0-30.0) sec D-Dimer 0.24 (<0.60) mg/L FEU Sodium 140 (137-145) mmol/L Potassium 4.1 (3.5-5.1) mmol/L Chloride 110 H (98-107) mmol/L Carbon Dioxide 24 (22-30) mmol/L Anion Gap 6 mmol/L BUN 7 (7-17) mg/dL Creatinine 0.77 (0.52-1.04) mg/dL Est GFR (CKD-EPI)AfAm >90 (>60 ml/min/1.73 sqM) Est GFR (CKD-EPI)NonAf 88 (>60 ml/min/1.73 sqM) Glucose 103 H (74-99) mg/dL Calcium 10.1 (8.4-10.2) mg/dL Magnesium 2.0 (1.6-2.3) mg/dL Total Bilirubin 0.5 (0.2-1.3) mg/dL AST 25 (14-36) U/L ALT 22 (4-34) U/L Alkaline Phosphatase 97 (38-126) U/L Troponin I (0.000-0.034) ng/mL NT-Pro-B Natriuret Pep 160 pg/mL Total Protein 7.1 (6.3-8.2) g/dL Albumin 4.6 (3.5-5.0) g/dL Triglycerides (0.00-149.00) mg/dL Cholesterol (0.00-200.00) mg/dL LDL Cholesterol, Calc (0.0-131.0) mg/dL VLDL Cholesterol, Calc (5.00-40.00) mg/dL HDL Cholesterol (40.00-60.00) mg/dL Cholesterol/HDL Ratio Ratio Lipase 53 (23-300) U/L TSH (0.350-5.500) UIU/ML 04/05/24 04/05/24 Range/Units 21:36 21:36 WBC (3.8-10.6) k/uL RBC (3.80-5.40) m/uL Hgb (11.4-16.0) gm/dL Hct (34.0-46.0) % MCV (80.0-100.0) fL MCH (25.0-35.0) pg MCHC (31.0-37.0) g/dL RDW (11.5-15.5) % Plt Count (150-450) k/uL MPV Neutrophils % % Lymphocytes % % Monocytes % % Eosinophils % % Basophils % % Neutrophils # (1.3-7.7) k/uL Lymphocytes # (1.0-4.8) k/uL Monocytes # (0-1.0) k/uL Eosinophils # (0-0.7) k/uL Basophils # (0-0.2) k/uL PT (10.0-12.5) sec INR (<1.2) APTT (22.0-30.0) sec D-Dimer (<0.60) mg/L FEU Sodium (137-145) mmol/L Potassium (3.5-5.1) mmol/L Chloride (98-107) mmol/L Carbon Dioxide (22-30) mmol/L Anion Gap mmol/L BUN (7-17) mg/dL Creatinine (0.52-1.04) mg/dL Est GFR (CKD-EPI)AfAm (>60 ml/min/1.73 sqM) Est GFR (CKD-EPI)NonAf (>60 ml/min/1.73 sqM) Glucose (74-99) mg/dL Calcium (8.4-10.2) mg/dL Magnesium (1.6-2.3) mg/dL Total Bilirubin (0.2-1.3) mg/dL AST (14-36) U/L ALT (4-34) U/L Alkaline Phosphatase (38-126) U/L Troponin I <0.012 (0.000-0.034) ng/mL NT-Pro-B Natriuret Pep pg/mL Total Protein (6.3-8.2) g/dL Albumin (3.5-5.0) g/dL Triglycerides 317.00 H (0.00-149.00) mg/dL Cholesterol 316.00 H (0.00-200.00) mg/dL LDL Cholesterol, Calc 195.4 H (0.0-131.0) mg/dL VLDL Cholesterol, Calc 63.40 H (5.00-40.00) mg/dL HDL Cholesterol 57.20 (40.00-60.00) mg/dL Cholesterol/HDL Ratio 5.52 Ratio Lipase (23-300) U/L TSH 1.180 (0.350-5.500) UIU/ML Disposition Clinical Impression: Stable angina, COPD exacerbation Disposition: ADMITTED IP TO THIS HOSP Condition: Good
[2024-04-05] MEDS: CYCLOBENZAPRINE 10 MG TAB PO STA (21:44)
[2024-04-05] MEDS: SODIUM CHLORIDE 0.9% 1,000 ML IV STA (21:44)
[2024-04-05] MEDS: lisinopriL 10 MG TAB PO STA (21:44)
--- NOTE | 2024-04-05 22:13 | XR ---
EXAMINATION TYPE: XR chest 2V DATE OF EXAM: 04/05/2024 COMPARISON: 12/17/2020 INDICATION: Chest pain TECHNIQUE: Frontal and lateral views of the chest are obtained. FINDINGS: The heart size is normal. The pulmonary vasculature is normal. The lungs are clear. Hyperinflation flattening the diaphragms is present compatible with COPD. There is increased AP. IMPRESSION: 1. No acute pulmonary process. 2. [facility], , 04/05/2024 10:11 PM
[2024-04-05 22:15] LABS: Basophils # (A) 0.1 k/uL (0-0.2); Basophils % (A) 1 %; Eosinophils # (A) 0.3 k/uL (0-0.7); Eosinophils % (A) 3 %; HCT 41.7 % (34.0-46.0); HGB 14.2 gm/dL (11.4-16.0); Lymphocytes # (A) 2.4 k/uL (1.0-4.8); Lymphocytes % (A) 29 %; MCH 32.2 pg (25.0-35.0); MCV 94.6 fL (80.0-100.0); Mean Platelet Volume 7.6; Monocytes # (A) 0.6 k/uL (0-1.0); Monocytes % (A) 7 %; Neutrophils # (A) 4.8 k/uL (1.3-7.7); Neutrophils % (A) 58 %; Platelet Count 286 k/uL (150-450); RDW 11.7 % (11.5-15.5); WBC 8.4 k/uL (3.8-10.6)
[2024-04-05 22:25] LABS: ALT 22 U/L (4-34); AST 25 U/L (14-36); African American GFR (CKD) >90 (>60 ml/min/1.73 sqM); Albumin 4.6 g/dL (3.5-5.0); Alkaline Phosphatase 97 U/L (38-126); Anion Gap 6 mmol/L; Blood Urea Nitrogen 7 mg/dL (7-17); Calcium 10.1 mg/dL (8.4-10.2); Carbon Dioxide 24 mmol/L (22-30); Chloride 110 mmol/L (98-107); Glucose 103 mg/dL (74-99); Lipase 53 U/L (23-300); Non-African American GFR(CKD) 88 (>60 ml/min/1.73 sqM); Potassium 4.1 mmol/L (3.5-5.1); Sodium 140 mmol/L (137-145); Total Bilirubin 0.5 mg/dL (0.2-1.3); Total Protein 7.1 g/dL (6.3-8.2)
[2024-04-05 22:33] LABS: NT-Pro-B-Type Natriuretic Pept 160 pg/mL
[2024-04-05 22:34] LABS: INR 0.9 (<1.2); Partial Thromboplastin Time 26.5 sec (22.0-30.0)
[2024-04-05] MEDS: IPRATROPIUM-ALBUTEROL 3 ML NEB INHALATION STA (22:42)
[2024-04-05] MEDS: methylPREDNISolone SOD SUCCI 125 MG/2 ML VIAL IV STA (22:47)
[2024-04-05] MEDS: traMADol 50 MG TAB PO STA (22:47)
[2024-04-05] MEDS: LABETALOL SYRINGE 5 MG/ML (4 ML SYR) IVP STA (23:53)
[2024-04-06] MEDS ORDERED: ACETAMINOPHEN TAB 325 MG TAB PO PRN (00:05)
[2024-04-06] MEDS ORDERED: NALOXONE 0.4 MG/ML 1 ML VIAL IV PRN (00:05)
[2024-04-06] MEDS: traMADol 50 MG TAB PO PRN (01:00)
[2024-04-06] MEDS: hydrALAZINE HCL 20 MG/ML 1 ML VIAL IVP PRN (03:54)
[2024-04-06] MEDS: CYCLOBENZAPRINE 5 MG TAB PO SCH (08:26)
[2024-04-06] MEDS: lisinopriL 20 MG TAB PO SCH (09:09)
[2024-04-06] MEDS: PROPRANOLOL LA 60 MG CAP.SA.24H PO SCH (09:09)
[2024-04-06] MEDS: PANTOPRAZOLE 40 MG/10 ML VIAL IV SCH (09:09)
[2024-04-06] MEDS: amLODIPine 5 MG TAB PO SCH (10:36)
--- NOTE | 2024-04-06 13:45 | P.CRDCN ---
History of Present Illness Consult date: 04/06/24 Consult reason: hypertension History of present illness: The patient is a 54-year-old female who presented to the hospital with acute onset of chest discomfort. The patient states this developed over the last 24 hours and was a pressure-like sensation. She states she was checking her blood pressure at home with systolic pressures greater than 200 mmHg. She states that the more often she checked it, the more elevated her blood pressure readings would get. EKG shows sinus mechanism without acute ST or T wave abnormalities Chest x-ray shows no acute cardiopulmonary process Lab data: WBC 8.4, hemoglobin 14.2, hematocrit 41.7, platelet 286, sodium 140, potassium 4.1, BUN 7, creatinine 0.77, magnesium 2.0, troponins negative x 3, AST 25, ALT 22, BNP 160 GENERAL: Well-appearing, well-nourished and in no acute distress. NECK: Supple without JVD or thyromegaly. LUNGS: Breath sounds clear to auscultation bilaterally. Respiration equal and unlabored. No wheezes, rales or rhonchi. HEART: Regular rate and rhythm without murmurs, rubs or gallops. S1 and S2 heard. EXTREMITIES: Normal range of motion, no edema. No clubbing or cyanosis. P eripheral pulses intact and strong. TELEMETRY: Sinus rhythm IMPRESSION: Chest discomfort, ACS ruled out Uncontrolled hypertension Former smoker Current marijuana use History of SVT with prior ablation PLAN: Continue lisinopril 20 mg and amlodipine 5 mg daily Patient may be discharged for outpatient follow-up I am dictating on behalf of Dr Hayden Jeronimo's history/physical and assessment/plan. Past Medical History Past Medical History: Coronary Artery Disease (CAD), Cancer, Chest Pain / Angina, GERD/Reflux, Hyperlipidemia, Hypertension, Myocardial Infarction (ME), Seizure Disorder, Supraventricular Tachycardia (SVT) Additional Past Medical History / Comment(s): Past sinus tach, L spontaneous pneumothorax w/ surgery,Emphysema stage 3, cervical cancer w/ surgery, uterine fibroids w/ surgery, ovarian cysts, umbilical & esophageal hernia, diverticular disease per pt, Raynaulds syndrome, POTs, no seizure since 2008, migraines, poss autoimmune disease - c/o weak muscles, muscle spasms, eyelids drooping, optic neuritis Last Myocardial Infarction Date:: DECEMBER 2012 History of Any Multi-Drug Resistant Organisms: None Reported Past Surgical History: Appendectomy, Cardiac Ablation, Section, Cholecystectomy, Heart Catheterization, Hysterectomy, Tubal Ligation Additional Past Surgical History / Comment(s): LT LUNG SURG W/ PLEURODESIS, D/T PNEUMOTHORAX, LEEP, COLPOSCOPY, EGD/COLONOSCOPY. EXCISION OF LESIONS ON CHESTS AND BACK Past Anesthesia/Blood Transfusion Reactions: Postoperative Nausea & Vomiting (PONV) Additional Past Anesthesia/Blood Transfusion Reaction / Comment(s): NEVER HAD BLOOD TRANSFUSIONS Past Psychological History: Anxiety, Depression Additional Psychological History / Comment(s): Pt lives with her mother and stays at her boyfriends at times. She drives. She is currently unemployed. Smoking Status: Former smoker Past Alcohol Use History: None Reported Additional Past Alcohol Use History / Comment(s): STARTED SMOKING AT AGE 17, QUIT NOVEMBER 2015. Past Drug Use History: None Reported, Marijuana Additional Drug Use History / Comment(s): EDIBLES AT TIMES - Past Family History Father Family Medical History: Diabetes Mellitus Additional Family Medical History / Comment(s): FATHER IN [place] Mother Family Medical History: Hyperlipidemia, Hypertension, Osteoarthritis (OA), Rheumatoid Arthritis (RA) Additional Family Medical History / Comment(s): MOTHER IS LIVING AND IS 64YRS OLD. Medications and Allergies Home Medications Medication Instructions Recorded Confirmed Type Propranolol LA [Inderal LA] 60 mg PO DAILY cap.sa.24h 05/26/19 04/06/24 Rx Albuterol Sulfate [Proair Hfa] 1 - 2 puff INHALATION RT-Q6H PRN 12/17/20 04/06/24 History Aspirin EC [Ecotrin Low Dose] 81 mg PO DAILY 04/06/24 04/06/24 History Cyclobenzaprine [Flexeril] 10 mg PO BID@0900,1400 04/06/24 04/06/24 History Ergocalciferol [Vitamin D2 (1250 1,250 mcg PO FR 04/06/24 04/06/24 History Mcg = 30038 Iu)] Omeprazole 20 mg PO DAILY 04/06/24 04/06/24 History lisinopriL [Zestril] 10 mg PO BID 04/06/24 04/06/24 History traMADol HCL 50 mg PO BID@0900,1400 04/06/24 04/06/24 History Allergies Allergy/AdvReac Type Severity Reaction Status Date / Time erythromycin base Allergy Rapid Verified 04/06/24 10:48 Heart Rate heparin Allergy Unknown Verified 04/06/24 10:48 latex Allergy Rash/Hives Verified 04/06/24 10:48 Penicillins Allergy Rash/Hives Verified 04/06/24 10:48 propoxyphene napsylate Allergy Unknown Verified 04/06/24 10:48 [From [facility]] shellfish derived Allergy Swelling Verified 04/06/24 10:48 Physical Exam Vitals: Vital Signs Temp Pulse Pulse Resp BP BP Pulse Ox 04/06/24 07:00 97.7 F 95 15 155/81 94 L 04/06/24 02:34 87 18 04/06/24 02:00 97.9 F 87 18 192/127 95 04/06/24 01:20 98.5 F 86 18 162/86 97 04/06/24 01:00 88 18 176/96 97 04/05/24 23:42 89 18 176/85 95 04/05/24 23:15 70 18 175/92 96 04/05/24 22:52 78 04/05/24 22:42 74 04/05/24 21:39 66 20 189/96 95 04/05/24 21:08 98.6 F 73 20 187/109 96 Intake and Output 04/05/24 04/06/24 04/06/24 22:59 06:59 14:59 Intake Total 0 118 Balance 0 118 Intake: Oral 0 118 Other: # Voids 2 Weight 50.802 kg 50.802 kg Results 04/05/24 21:36 04/05/24 21:36 Cardiac Enzymes 04/05/24 04/05/24 04/06/24 Range/Units 21:36 21:36 02:42 AST 25 (14-36) U/L Troponin I <0.012 <0.012 (0.000-0.034) ng/mL 04/06/24 Range/Units 05:00 AST (14-36) U/L Troponin I <0.012 (0.000-0.034) ng/mL Coagulation 04/05/24 Range/Units 21:36 PT 10.0 (10.0-12.5) sec APTT 26.5 (22.0-30.0) sec CBC 04/05/24 Range/Units 21:36 WBC 8.4 (3.8-10.6) k/uL RBC 4.40 (3.80-5.40) m/uL Hgb 14.2 (11.4-16.0) gm/dL Hct 41.7 (34.0-46.0) % Plt Count 286 (150-450) k/uL Comprehensive Metabolic Panel 04/05/24 Range/Units 21:36 Sodium 140 (137-145) mmol/L Potassium 4.1 (3.5-5.1) mmol/L Chloride 110 H (98-107) mmol/L Carbon Dioxide 24 (22-30) mmol/L BUN 7 (7-17) mg/dL Creatinine 0.77 (0.52-1.04) mg/dL Glucose 103 H (74-99) mg/dL Calcium 10.1 (8.4-10.2) mg/dL AST 25 (14-36) U/L ALT 22 (4-34) U/L Alkaline Phosphatase 97 (38-126) U/L Total Protein 7.1 (6.3-8.2) g/dL Albumin 4.6 (3.5-5.0) g/dL Current Medications Generic Name Dose Route Start Last Admin Trade Name Freq PRN Reason Stop Dose Admin Acetaminophen 650 mg 04/06/24 00:05 Acetaminophen Tab 325 Mg Tab PO Q6HR PRN Mild Pain or Fever > 100.5 Amlodipine Besylate 5 mg 04/06/24 09:45 04/06/24 10:36 Amlodipine 5 Mg Tab PO 5 mg DAILY ELISA Administration Cyclobenzaprine HCl 5 mg 04/06/24 09:00 04/06/24 08:26 Cyclobenzaprine 5 Mg Tab PO 5 mg TID ELISA Administration Lisinopril 20 mg 04/06/24 09:00 04/06/24 09:09 Lisinopril 20 Mg Tab PO 20 mg DAILY ELISA Administration Naloxone HCl 0.2 mg 04/06/24 00:05 Naloxone 0.4 Mg/Ml 1 Ml Vial IV Q2M PRN Opioid Reversal Pantoprazole Sodium 40 mg 04/06/24 09:00 04/06/24 09:09 Pantoprazole 40 Mg/10 Ml Vial IV 40 mg DAILY ELISA Administration Propranolol HCl 60 mg 04/06/24 09:00 04/06/24 09:09 Propranolol La 60 Mg Cap.Sa.24h PO 60 mg DAILY ELISA Administration Tramadol HCl 50 mg 04/06/24 00:05 04/06/24 08:26 Tramadol 50 Mg Tab PO 50 mg Q6H PRN Administration Moderate Pain (Scale 4 to 6) Intake and Output 04/05/24 04/06/24 04/06/24 22:59 06:59 14:59 Intake Total 0 118 Balance 0 118 Intake: Oral 0 118 Other: # Voids 2 Weight 50.802 kg 50.802 kg 04/05/24 21:36 04/05/24 21:36
--- NOTE | 2024-04-06 13:55 | P.HPIM ---
History of Present Illness H&P Date: 04/06/24 History of present illness; patient is a 54-year-old lady with past medical significant for COPD to the ER because of chest pain and shortness of breath. Patient stated that she was all right yesterday morning when after waking up she was walking to the bathroom when she noticed that she was short of breath. Patient was only able to walk 6-8 steps before getting short of breath. Patient also having chest pain at that time, chest pain was central, radiating to the back and shoulder, no relieving factor associated with this chest pain. Patient noted that throughout the day she was having these episodes of chest pain that were brought about by exertion. Denies any palpitations. There is no complaint orthopnea and PND. Denies any fever or chills. Because of chest pain, patient came to the ER Initial lab work done in the ER showed CBC 8.4, hemoglobin 14.2, platelet count 286, D-dimer 0.24, sodium 141 potassium 4.1, BUN 7, creatinine 0.77, glucose 103, calcium 10.1, troponin 0.012, proBNP 160 Lipase 53 EKG done in the ER showed heart rate of 67, no ST segment elevation or depressio n seen, no T-wave inversions seen. Chest x-ray done in the ER showed no acute pulmonary process Patient admitted to internal medicine service REVIEW OF SYSTEMS: CONSTITUTIONAL: No fever, no malaise, no fatigue. HEENT: No recent visual problems or hearing problems. Denied any sore throat. CARDIOVASCULAR: As mentioned above PULMONARY: As mentioned above GASTROINTESTINAL: No diarrhea, no nausea, no vomiting, no abdominal pain. NEUROLOGICAL: No headaches, no weakness, no numbness. HEMATOLOGICAL: Denies any bleeding or petechiae. GENITOURINARY: Denies any burning micturition, frequency, or urgency. MUSCULOSKELETAL/RHEUMATOLOGICAL: Denies any joint pain, swelling, or any muscle pain. ENDOCRINE: Denies any polyuria or polydipsia. The rest of the 14-point review of systems is negative. PHYSICAL EXAMINATION: GENERAL: The patient is alert and oriented x3, not in any acute distress. Well developed, well nourished. HEENT: Pupils are round and equally reacting to light. EOMI. No scleral icterus. No conjunctival pallor. Normocephalic, atraumatic. No pharyngeal erythema. No thyromegaly. CARDIOVASCULAR: S1 and S2 present. No murmurs, rubs, or gallops. PULMONARY: Chest is clear to auscultation, no wheezing or crackles. ABDOMEN: Soft, nontender, nondistended, normoactive bowel sounds. No palpable organomegaly. MUSCULOSKELETAL: No joint swelling or deformity. EXTREMITIES: No cyanosis, clubbing, or pedal edema. NEUROLOGICAL: Gross neurological examination did not reveal any focal deficits. SKIN: No rashes. Assessment and plan Chest pain, rule out acute coronary syndrome History of coronary artery disease History of COPD Hypertension Monitor vital signs Monitor CBC Monitor CMP Continue telemetry monitoring Trend troponin Order D-dimer Ordered breathing treatment Ordered lipid panel 2D echo Start Norvasc, resume lisinopril Consult cardiology Labs and medication were reviewed.. Continue same treatment. Continue with symptomatic treatment. Resume home medication. Monitor labs and vitals. DVT and GI prophylaxis. Further recommendations as per clinical course of the patient Dictation was produced using [employer] dictation software. please excuse any gramma tical, word or spelling errors. Past Medical History Past Medical History: Coronary Artery Disease (CAD), Cancer, Chest Pain / Angina, GERD/Reflux, Hyperlipidemia, Hypertension, Myocardial Infarction (ME), Seizure Disorder, Supraventricular Tachycardia (SVT) Additional Past Medical History / Comment(s): Past sinus tach, L spontaneous pneumothorax w/ surgery,Emphysema stage 3, cervical cancer w/ surgery, uterine fibroids w/ surgery, ovarian cysts, umbilical & esophageal hernia, diverticular disease per pt, Raynaulds syndrome, POTs, no seizure since 2008, migraines, poss autoimmune disease - c/o weak muscles, muscle spasms, eyelids drooping, optic neuritis Last Myocardial Infarction Date:: DECEMBER 2012 History of Any Multi-Drug Resistant Organisms: None Reported Past Surgical History: Appendectomy, Cardiac Ablation, Section, Cholecystectomy, Heart Catheterization, Hysterectomy, Tubal Ligation Additional Past Surgical History / Comment(s): LT LUNG SURG W/ PLEURODESIS, D/T PNEUMOTHORAX, LEEP, COLPOSCOPY, EGD/COLONOSCOPY. EXCISION OF LESIONS ON CHESTS AND BACK Past Anesthesia/Blood Transfusion Reactions: Postoperative Nausea & Vomiting (PONV) Additional Past Anesthesia/Blood Transfusion Reaction / Comment(s): NEVER HAD BLOOD TRANSFUSIONS Past Psychological History: Anxiety, Depression Additional Psychological History / Comment(s): Pt lives with her mother and stays at her boyfriends at times. She drives. She is currently unemployed. Smoking Status: Former smoker Past Alcohol Use History: None Reported Additional Past Alcohol Use History / Comment(s): STARTED SMOKING AT AGE 17, QUIT NOVEMBER 2015. Past Drug Use History: None Reported, Marijuana Additional Drug Use History / Comment(s): EDIBLES AT TIMES - Past Family History Father Family Medical History: Diabetes Mellitus Additional Family Medical History / Comment(s): FATHER IN [place] Mother Family Medical History: Hyperlipidemia, Hypertension, Osteoarthritis (OA), Rheumatoid Arthritis (RA) Additional Family Medical History / Comment(s): MOTHER IS LIVING AND IS 64YRS OLD. Medications and Allergies Home Medications Medication Instructions Recorded Confirmed Type Umeclidinium Ong [Incruse 1 puff INHALATION RT-DAILY 05/22/19 12/17/20 History Ellipta] Atorvastatin [Lipitor] 10 mg PO DAILY #30 tab 05/26/19 12/17/20 Rx Propranolol LA [Inderal LA] 60 mg PO DAILY cap.sa.24h 05/26/19 12/17/20 Rx lisinopriL [Zestril] 20 mg PO DAILY #30 tab 05/26/19 12/17/20 Rx Docusate [Colace] 100 mg PO DAILY 07/01/20 12/17/20 History Cyclobenzaprine [Flexeril] 5 mg PO TID 09/03/20 12/17/20 History Albuterol Sulfate [Proair Hfa] 1 - 2 puff INHALATION Q6HR PRN 12/17/20 12/17/20 History Clindamycin [Cleocin] 150 mg PO Q8H #30 cap 04/14/21 Rx Doxycycline Monohydrate [Monodox] 100 mg PO Q12HR #20 cap 04/14/21 Rx clindamycin HCL [Clindamycin HCl] 300 mg PO Q8H 10 Days #30 cap 04/14/21 Rx Allergies Allergy/AdvReac Type Severity Reaction Status Date / Time erythromycin base Allergy Rapid Verified 04/05/24 21:15 Heart Rate heparin Allergy Unknown Verified 04/05/24 21:15 latex Allergy Rash/Hives Verified 04/05/24 21:15 Penicillins Allergy Rash/Hives Verified 04/05/24 21:15 propoxyphene napsylate Allergy Unknown Ver[facility] 04/05/24 [facility] Allergy Swelling Verified 04/05/24 21:15 Physical Exam Vitals: Vital Signs Temp Pulse Pulse Resp BP BP Pulse Ox 04/06/24 07:00 97.7 F 95 15 155/81 94 L 04/06/24 02:34 87 18 04/06/24 02:00 97.9 F 87 18 192/127 95 04/06/24 01:20 98.5 F 86 18 162/86 97 04/06/24 01:00 88 18 176/96 97 04/05/24 23:42 89 18 176/85 95 04/05/24 23:15 70 18 175/92 96 04/05/24 22:52 78 04/05/24 22:42 74 04/05/24 21:39 66 20 189/96 95 04/05/24 21:08 98.6 F 73 20 187/109 96 Intake and Output 04/05/24 04/06/24 04/06/24 22:59 06:59 14:59 Intake Total 0 118 Balance 0 118 Intake: Oral 0 118 Other: # Voids 2 Weight 50.802 kg 50.802 kg Results CBC & Chem 7: 04/05/24 21:36 04/05/24 21:36 Labs: Abnormal Lab Results - Last 24 Hours (Table) 04/05/24 Range/Units 21:36 Chloride 110 H (98-107) mmol/L Glucose 103 H (74-99) mg/dL Thrombosis Risk Factor Assmnt - Choose All That Apply Each Factor Represents 1 point: Abnormal pulmonary function (COPD), Age 41-60 years Other Risk Factors: No Other congenital or acquired thrombophilia - If yes, enter type in comment: No Thrombosis Risk Factor Assessment Total Risk Factor Score: 2 Thrombosis Risk Factor Assessment Level: Low Risk
[2024-04-06] MEDS: hydrALAZINE HCL 50 MG TAB PO SCH (20:31)
[2024-04-07 01:37] VITALS: RESP 16; TEMP 98.2
[2024-04-07 07:36] VITALS: BP 153/94; PULSE 66
[2024-04-07 07:38] LABS: Chol/HDL Ratio 5.52 Ratio; LDL Cholesterol,Calculated 195.4 mg/dL (0.0-131.0)
--- NOTE | 2024-04-07 12:14 | CA ---
Transthoracic Echo Report Name: Christine Choi Age: 54 Gender: F : 1970 Exam Date: 04/06/2024 14:22 Exam Location: [facility] Ht (in): 64 Wt (lb): 112 Ordering Physician: Ruben Tiwari MD Attending/Referring Phys: Javascript Developer Antionette Alvarez RDCS Procedure CPT: Indications: Chest Pain Cardiac Hx: Technical Quality: Fair Contrast 1: Total Dose (mL): Contrast 2: Total Dose (mL): MEASUREMENTS (Male / Female) Normal Values 2D ECHO LV Diastolic Diameter PLAX 4.0 cm 4.2 - 5.9 / 3.9 - 5.3 cm LV Systolic Diameter PLAX 2.2 cm IVS Diastolic Thickness 0.8 cm 0.6 - 1.0 / 0.6 - 0.9 cm LVPW Diastolic Thickness 1.0 cm 0.6 - 1.0 / 0.6 - 0.9 cm LV Relative Wall Thickness 0.5 RV Internal Dim ED PLAX 3.7 cm LA Volume 34.4 cm??? 18 - 58 / 22 - 52 cm??? LA Volume Index 22.8 cm???/m??? 16 - 28 cm???/m??? M-MODE Aortic Root Diameter MM 2.6 cm LA Systolic Diameter MM 3.7 cm LA Ao Ratio MM 1.4 AV Cusp Separation MM 1.4 cm DOPPLER AV Peak Velocity 108.9 cm/s AV Peak Gradient 4.7 mmHg AV Mean Velocity 73.3 cm/s AV Mean Gradient 2.4 mmHg AV Velocity Time Integral 20.4 cm LVOT Peak Velocity 116.4 cm/s LVOT Peak Gradient 5.4 mmHg LVOT Velocity Time Integral 21.2 cm MV Area PHT 4.5 cm??? Mitral E Point Velocity 99.4 cm/s Mitral A Point Velocity 87.8 cm/s Mitral E to A Ratio 1.1 MV Deceleration Time 168.2 ms MV E' Velocity 8.5 cm/s Mitral E to MV E' Ratio 11.7 FINDINGS Left Ventricle Normal Left ventricular size, wall thickness, systolic function with no obvious regional wall motion abnormalities. Normal Left ventricular diastolic filling pattern. Left ventricular ejection fraction is estimated at 55-60%. Right Ventricle Mild right ventricular dilatation. Right ventricular systolic pressure within normal limits. Right Atrium Normal right atrial size. Left Atrium Normal left atrial size. Mitral Valve Structurally normal mitral valve. No mitral stenosis, regurgitation or prolapse. Aortic Valve Trileaflet aortic valve. No aortic valve stenosis or regurgitation. Tricuspid Valve Structurally normal tricuspid valve. Mild tricuspid regurgitation. Pulmonic Valve Structurally normal pulmonic valve. Pericardium No pericardial effusion. Aorta Normal size aortic root and proximal ascending aorta. CONCLUSIONS Normal LV size and function RV size at the upper limits of normal with preserved systolic function No significant valvular abnormalities Pericardial thickening noted circumferentially Previewed by: Dr. Hayden Jeronimo MD (Electronically Signed) Final Date: 07 April 2024 12:13
--- NOTE | 2024-04-07 13:27 | P.PN ---
Subjective Progress Note Date: 04/07/24 The patient is a 54-year-old female who is admitted to the hospital with chest pain and hypertensive crisis. She has been started on amlodipine and lisinopril dose has been doubled. Her blood pressure has been gradually coming down over the last 24 hours. Yesterday, the patient was started on hydralazine however we do not recommend this medication outpatient due to 3 times daily dosing. Patient interviewed and examined resting comfortably in bed. She states she is feeling much better now that her blood pressure is better controlled. GENERAL: Well-appearing, well-nourished and in no acute distress. NECK: Supple without JVD or thyromegaly. LUNGS: Breath sounds clear to auscultation bilaterally. Respiration equal and unlabored. No wheezes, rales or rhonchi. HEART: Regular rate and rhythm without murmurs, rubs or gallops. S1 and S2 heard. EXTREMITIES: Normal range of motion, no edema. No clubbing or cyanosis. Peripheral pulses intact and strong. TELEMETRY: Sinus rhythm overnight IMPRESSION: Chest discomfort, ACS ruled out Uncontrolled hypertension, improving Former smoker Current marijuana use History of SVT with prior ablation Dyslipidemia PLAN: Discontinue hydralazine Recommend continuing amlodipine at 10 mg and lisinopril at 20 mg to avoid hypotension outpatient Patient may be discharged from the cardiac standpoint Follow-up with Dr. Jeronimo in 2 weeks I am dictating on behalf of Dr Hayden Jeronimo's history/physical and assessment/plan. Objective - Vital Signs Vital signs: Vital Signs Temp 98.2 F 04/07/24 07:10 Pulse 66 04/07/24 07:10 Resp 16 04/07/24 07:10 BP 153/94 04/07/24 07:10 Pulse Ox 95 04/07/24 07:10 FiO2 Intake & Output 04/06/24 04/07/24 04/07/24 18:59 06:59 18:59 Intake Total 118 300 Balance 118 300 Intake: Oral 118 300 Other: Voiding Method Toilet # Voids 3 2 - Labs CBC & Chem 7: 04/05/24 21:36 04/05/24 21:36 Labs: Abnormal Lab Results - Last 24 Hours (Table) 04/05/24 Range/Units 21:36 Triglycerides 317.00 H (0.00-149.00) mg/dL Cholesterol 316.00 H (0.00-200.00) mg/dL LDL Cholesterol, Calc 195.4 H (0.0-131.0) mg/dL VLDL Cholesterol, Calc 63.40 H (5.00-40.00) mg/dL
--- NOTE | 2024-04-07 14:36 | P.DS ---
Providers Date of admission: 04/06/24 00:07 Expected date of discharge: 04/07/24 Attending physician: Ann Cruz Consults: 04/06/24 00:05 Consult Physician Routine Consulting Provider: Hayden Jeronimo Consult Reason/Comments: chest pain Do you want consulting provider notified?: Yes, Notify in am Primary care physician: Richard Feldman Hospital Course: Discharge diagnoses; Chest pain, acute coronary syndrome ruled out Uncontrolled hypertension History of coronary artery disease History of COPD Hypertension Hospital course; patient is a 54-year-old lady with past medical significant for COPD to the ER because of chest pain and shortness of breath. Patient stated that she was all right yesterday morning when after waking up she was walking to the bathroom when she noticed that she was short of breath. Patient was only able to walk 6- 8 steps before getting short of breath. Patient also having chest pain at that time, chest pain was central, radiating to the back and shoulder, no relieving factor associated with this chest pain. Patient noted that throughout the day she was having these episodes of chest pain that were brought about by exertion. Denies any palpitations. There is no complaint orthopnea and PND. Denies any fever or chills. Because of chest pain, patient came to the ER Initial lab work done in the ER showed CBC 8.4, hemoglobin 14.2, platelet count 286, D-dimer 0.24, sodium 141 potassium 4.1, BUN 7, creatinine 0.77, glucose 103, calcium 10.1, troponin 0.012, proBNP 160 Lipase 53 EKG done in the ER showed heart rate of 67, no ST segment elevation or depression seen, no T-wave inversions seen. Chest x-ray done in the ER showed no acute pulmonary process Patient admitted to internal medicine service 04/07. Patient seen and examined. Cardiology eval the patient, recommended good blood pressure control, dose of Norvasc increased to 10 mg a day and lisinopril increased to 20 mg twice a day. Patient to follow-up outpatient with cardiology PHYSICAL EXAMINATION: GENERAL: The patient is alert and oriented x3, not in any acute distress. Well developed, well nourished. HEENT: Pupils are round and equally reacting to light. EOMI. No scleral icterus. No conjunctival pallor. Normocephalic, atraumatic. No pharyngeal erythema. No thyromegaly. CARDIOVASCULAR: S1 and S2 present. No murmurs, rubs, or gallops. PULMONARY: Chest is clear to auscultation, no wheezing or crackles. ABDOMEN: Soft, nontender, nondistended, normoactive bowel sounds. No palpable organomegaly. MUSCULOSKELETAL: No joint swelling or deformity. EXTREMITIES: No cyanosis, clubbing, or pedal edema. NEUROLOGICAL: Gross neurological examination did not reveal any focal deficits. SKIN: No rashes. Dictation was produced using [employer] dictation software. please excuse any grammatical, word or spelling errors. Patient Condition at Discharge: Good Plan - Discharge Summary Discharge Rx Participant: No New Discharge Prescriptions: New amLODIPine [Norvasc] 10 mg PO DAILY #30 tab lisinopriL [Zestril] 20 mg PO BID #60 tab Continue Propranolol LA [Inderal LA] 60 mg PO DAILY cap.sa.24h traMADol HCL 50 mg PO BID@0900,1400 Cyclobenzaprine [Flexeril] 10 mg PO BID@0900,1400 Aspirin EC [Ecotrin Low Dose] 81 mg PO DAILY Albuterol Sulfate [Proair Hfa] 1 - 2 puff INHALATION RT-Q6H PRN PRN Reason: Shortness Of Breath Ergocalciferol [Vitamin D2 (1250 Mcg = 29603 Iu)] 1,250 mcg PO FR Omeprazole 20 mg PO DAILY Discontinued lisinopriL [Zestril] 10 mg PO BID Discharge Medication List Propranolol LA [Inderal LA] 60 mg PO DAILY cap.sa.24h 05/26/19 [Rx] Albuterol Sulfate [Proair Hfa] 1 - 2 puff INHALATION RT-Q6H PRN 12/17/20 [History] Aspirin EC [Ecotrin Low Dose] 81 mg PO DAILY 04/06/24 [History] Cyclobenzaprine [Flexeril] 10 mg PO BID@0900,1400 04/06/24 [History] Ergocalciferol [Vitamin D2 (1250 Mcg = 35120 Iu)] 1,250 mcg PO FR 04/06/24 [History] Omeprazole 20 mg PO DAILY 04/06/24 [History] traMADol HCL 50 mg PO BID@0900,1400 04/06/24 [History] amLODIPine [Norvasc] 10 mg PO DAILY #30 tab 04/07/24 [Rx] lisinopriL [Zestril] 20 mg PO BID #60 tab 04/07/24 [Rx] Follow up Appointment(s)/Referral(s): Richard Feldman MD [Primary Care Provider] - 1-2 days Malik Manzanares MD [STAFF PHYSICIAN] - 1 Week Discharge Disposition: HOME SELF-CARE
[2024-04-08] MEDS ORDERED: amLODIPine 10 MG TAB PO SCH (09:00)
== END 2024-04-07 11:40 | disposition home or self-care (01) ==
LOC: EC 21:06 → 6NMEDSUR 04-06 00:07
PROVIDERS: ADMIT Hospitalist; ATTEND Hospitalist
DX: R07.2 Precordial pain (principal); I16.9 Hypertensive crisis, unspecified; I10 Essential (primary) hypertension; I25.10 Atherosclerotic heart disease of native coronary artery without angina pectoris; J43.9 Emphysema, unspecified; M25.519 Pain in unspecified shoulder; M54.2 Cervicalgia; I25.2 Old myocardial infarction; M54.9 Dorsalgia, unspecified; F12.90 Cannabis use, unspecified, uncomplicated; Z79.82 Long term (current) use of aspirin; Z79.899 Other long term (current) drug therapy; Z88.8 Allergy status to other drugs, medicaments and biological substances; Z88.1 Allergy status to other antibiotic agents; Z91.040 Latex allergy status; Z88.5 Allergy status to narcotic agent; Z88.0 Allergy status to penicillin; Z91.013 Allergy to seafood; Z95.5 Presence of coronary angioplasty implant and graft; Z87.891 Personal history of nicotine dependence; Z86.79 Personal history of other diseases of the circulatory system
CPT/HCPCS: 36415; 71046; 80053; 80061; 83036; 83690; 83735; 83880; 84443; 84484; 85025; 85379; 85610; 85730; 93005; 93306; 94640; 96361; 96374; 96375; 96376; 99285